=== PATIENT | female | born 1935 | race American Indian/Alaskan Native ===

== ENCOUNTER 2017-11-10 00:12 | Inpatient (IN) | payer OTHER ==
[2017-11-10] MEDS ORDERED: Eptifibatide 20 mg/10mL Inj IV ONE ×2 (00:25→00:42)
--- NOTE | 2017-11-10 00:25 | ED PDOC ---
Arrival/HPI - General Chief Complaint: Chest Pain Time Seen by Provider: 11/10/17 00:19 Historian: Family, EMS EM Caveat: Dementia - Critical Care Critical Care Minutes: 30 minutes - History of Present Illness Narrative History of Present Illness (Text): 11/10/17 00:21 82 year old female, whose past medical history includes hypertension and diabetes, presents to the Emergency department complaining of chest pain that began 30 minutes ago associated with nausea and vomiting. As per EMS, the EKG showed ST elevations in lateral leads and ST depressions in the inferior leads. Patient's son reports that patient had been showing signs of dementia for the past month as well at times having shortness of breath on exertion at home. HPI and ROS limited due to patients symptoms of dementia. Patent's history obtained by family. PMD: Dr. Gibbs Time/Duration: 1/2 hour Symptom Onset: Sudden Symptom Course: Unchanged Activities at Onset: Light Context: Home Past Medical History - Provider Review Nursing Documentation Reviewed: Yes - Cardiac Hx Cardiac Disorders: Yes Hx Hypertension: Yes - Psychiatric Hx Substance Use: No Family/Social History - Physician Review Nursing Documentation Reviewed: Yes Family/Social History: No Known Family HX Smoking Status: Never Smoked Hx Alcohol Use: No Hx Substance Use: No Allergies/Home Meds Allergies/Adverse Reactions: Allergies No Known Allergies Allergy (Verified 11/10/17 00:18) Review of Systems - Physician Review All systems were reviewed & negative as marked: Yes - Review of Systems Systems not reviewed;Unavailable: Dementia Cardiovascular: Chest Pain, BARRIENTOS Gastrointestinal: Nausea, Vomiting Physical Exam Vital Signs Reviewed: Yes Vital Signs Pulse Resp BP Pulse Ox 11/10/17 00:45 60 155/83 H 11/10/17 00:29 68 16 131/68 96 11/10/17 00:23 68 16 141/67 96 Temperature: Afebrile Blood Pressure: Normal Pulse: Regular Appearance: Positive for: Other (Weak and pale. Vomited in ER) Pain Distress: None Mental Status: Positive for: other (Alert and Oriented X 2. History of Dementia ) - Systems Exam Head: Present: Atraumatic, Normocephalic Pupils: Present: PERRL Extroacular Muscles: Present: EOMI Conjunctiva: Present: Normal Mouth: Present: Moist Mucous Membranes Neck: Present: Normal Range of Motion Respiratory/Chest: Present: Clear to Auscultation, Good Air Exchange. No: Respiratory Distress, Accessory Muscle Use Cardiovascular: Present: Regular Rate and Rhythm, Normal S1, S2. No: Murmurs Abdomen: No: Tenderness, Distention, Peritoneal Signs Back: Present: Normal Inspection Upper Extremity: Present: Normal Inspection. No: Cyanosis, Edema Lower Extremity: Present: Normal Inspection. No: Edema Neurological: Present: GCS=15, CN II-XII Intact, Speech Normal Skin: Present: Warm, Dry, Normal Color. No: Rashes Psychiatric: Present: Alert, Oriented x 3, Normal Insight, Normal Concentration Medical Decision Making ED Course and Treatment: 11/10/17 00:15 Impression: 82 year old female presents complaining of chest pain that began 30 minutes ago associated with nausea, vomiting, and dyspnea on exertion at times. Differential Diagnosis included but are not limited to: STEMI Plan: -- Labs -- EKG -- CXR -- Aspirin, Integrilin Bolus, Lopressor, Nitro-Bid 2%, Plavix , Zofran Inj -- Reassess and disposition Progress Notes: EKG shows NSR at [address] elevations, Q waves V1, V2, V3, and V4. ST depressions in leads 2, 3, and AVF. Interpreted by me. 11/10/17 00:23 Case discussed with with Dr. Arteaga who is aware and agrees with the plan. Requests Integrilin bolus and Aspirin. 11/10/17 00:25 Code Heart has been called. Patient will be sent to the Accounting Policy Consultant. Patient was administered, Plavix, Aspirin, 2nd Integrilin Bolus, and Lopressor. 11/10/17 00:[address] Gibbs who is aware and agrees with the plan. Accepts patient into her service. - Lab Interpretations Lab Results: 11/10/17 00:25 11/10/17 00:25 Lab Results 11/10/17 00:25: Sodium 146, Potassium 3.4 L, Chloride 110 H, Carbon Dioxide 24, Anion Gap 17, BUN 18, Creatinine 0.9, Est GFR ( Amer) > 60, Est GFR (Non- Af Amer) 60, Random Glucose 185 H, Calcium 9.4, Total Bilirubin 0.3, AST 29, ALT 27, Alkaline Phosphatase 105, Lactate Dehydrogenase 467, Total Creatine Kinase 112, Troponin I 0.10, Total Protein 7.6, Albumin 4.0, Globulin 3.6, Albumin/Globulin Ratio 1.1 11/10/17 00:25: PT 11.5, INR 1.01, APTT 27.9 11/10/17 00:25: WBC 12.1 H, RBC 3.82, Hgb 10.8 L, Hct 33.3 L, MCV 87.2, MCH 28.3 , MCHC 32.4, RDW 13.3, Plt Count 275, MPV 9.8, Gran % 54.6, Lymph % (Auto) 35.8 H, [place] % (Auto) 6.4 H, Eos % (Auto) 3.0, Baso % (Auto) 0.2, Gran # 6.60 H, Lymph # (Auto) 4.3 H, [place] # (Auto) 0.8 H, Eos # (Auto) 0.4, Baso # (Auto) 0.03 I have reviewed the lab results: Yes - RAD Interpretation Radiology Orders: 11/10/17 00:19 CHEST PORTABLE [RAD] Stat - EKG Interpretation Interpreted by ED Physician: Yes Type: 12 lead EKG - Medication Orders Current Medication Orders: Aspirin (Aspirin Chewable) 81 mg PO DAILY JORDON Clopidogrel Bisulfate (Plavix) 75 mg PO DAILY JORDON Clopidogrel Bisulfate (Plavix) 150 mg PO DAILY JORDON Stop: 11/11/17 10:01 Eptifibatide (Integrilin) 75 mg in 100 mls @ 12.265 mls/hr IV .Q8H10M JORDON; 2 MCG/KG/MIN PRN Reason: Protocol Stop: 11/10/17 13:30 Sodium Chloride (Sodium Chloride 0.9%) 1,000 mls @ 50 mls/hr IV .Q20H JORDON Discontinued Medications Aspirin (Aspirin) 325 mg PO STAT STA Stop: 11/10/17 00:20 Last Admin: 11/10/17 00:26 Dose: 325 mg Clopidogrel Bisulfate (Plavix) 600 mg PO STAT STA Stop: 11/10/17 00:39 Last Admin: 11/10/17 00:40 Dose: 600 mg Eptifibatide (Integrilin Bolus) 13.8 mg 0.18 mg/kg (13.8 mg) IV ONCE ONE Stop: 11/10/17 00:26 Last Admin: 11/10/17 00:29 Dose: 13.8 mg eMAR Start Stop Document 11/10/17 00:29 JOL (Rec: 11/10/17 00:38 [id number] Intravenous Solution Start Date 11/10/17 Start Time 00:29 End Date 11/10/17 End time 00:30 Total Infusion Time 1 Eptifibatide (Integrilin Bolus) 13.8 mg 0.18 mg/kg (13.8 mg) IV ONCE ONE Stop: 11/10/17 00:43 Last Admin: 11/10/17 00:46 Dose: 13.8 mg eMAR Start Stop Document 11/10/17 00:46 JOL (Rec: 11/10/17 00:47 COUNTS [id number] Intravenous Solution Start Date 11/10/17 Start Time 00:45 End Date 11/10/17 End time 00:47 Total Infusion Time 2 Metoprolol Tartrate (Lopressor) 5 mg IVP STAT STA Stop: 11/10/17 00:43 Last Admin: 11/10/17 00:45 Dose: 5 mg IVP Administration Document 11/10/17 00:45 JOL (Rec: 11/10/17 00:46 COUNTS [id number] Charges for Administration # of IVP Administrations 1 MAR Pulse and Blood Pressure Document 11/10/17 00:45 JOL (Rec: 11/10/17 00:46 COUNTS [facility]CLUDE [id number]) Pulse Pulse Rate (60-90) 60 Blood Pressure Blood Pressure (100/60-150/90) 155/83 Nitroglycerin (Nitro-Bid 2% Oint) 1 ea TOP STAT STA Stop: 11/10/17 00:30 Last Admin: 11/10/17 00:31 Dose: 1 ea Ondansetron HCl (Zofran Inj) 4 mg IVP STAT STA Stop: 11/10/17 00:30 Last Admin: 11/10/17 00:24 Dose: 4 mg IVP Administration Document 11/10/17 00:24 JOL (Rec: 11/10/17 00:37 COUNTS [facility]CLUDE [id number]) Charges for Administration # of IVP Administrations 1 - Scribe Statement The provider has reviewed the documentation as recorded by the Chava Whatley Provider Scribe Attestation: All medical record entries made by the Scribe were at my direction and personally dictated by me. I have reviewed the chart and agree that the record accurately reflects my personal performance of the history, physical exam, medical decision making, and the department course for this patient. I have also personally directed, reviewed, and agree with the discharge instructions and disposition. Disposition/Present on Arrival - Present on Arrival Any Indicators Present on Arrival: No History of DVT/PE: No History of Uncontrolled Diabetes: No Urinary Catheter: No History of Decub. Ulcer: No History Surgical Site Infection Following: None - Disposition Have Diagnosis and Disposition been Completed?: Yes Diagnosis: STEMI (ST elevation myocardial infarction) Disposition: HOSPITALIZED Disposition Time: 00:29 Patient Plan: Admission Condition: CRITICAL Referrals: Jennie Gibbs MD [Primary Care Provider] - Follow up with primary Forms: [employer] (Macedonian)
[2017-11-10] MEDS ORDERED: Nitroglycerin 2% Ointment Foilpak UD TOP STA (00:29)
[2017-11-10 00:40] LABS: BASO # 0.03 K/mm3 (0.0-2.0); BASO % 0.2 % (0.0-3.0); EOS # 0.4 (0.0-0.7); GRAN # 6.6 (1.4-6.5); GRAN % 54.6 % (50.0-68.0); HEMOGLOBIN 10.8 g/dL (12.0-16.0); LYMPH # 4.3 (1.2-3.4); LYMPH % 35.8 % (22.0-35.0); MEAN CELL VOLUME 87.2 fl (80.0-105.0); MEAN CORPUSCULAR HEMOGLOBIN 28.3 pg (25.0-35.0); MEAN CORPUSCULAR HGB CONC 32.4 g/dl (31.0-37.0); MEAN PLATELET VOLUME 9.8 fl (7.0-11.0); MONO # 0.8 (0.1-0.6); MONO % 6.4 % (1.0-6.0); RBC 3.82 10^6/uL (3.5-6.1); RED CELL DISTRIBUTION WIDTH 13.3 % (11.5-14.5); WHITE BLOOD COUNT 12.1 10^3/ul (4.5-11.0)
[2017-11-10] MEDS ORDERED: Metoprolol 1 mg/ml Inj IVP STA (00:42)
[2017-11-10] MEDS ORDERED: Metoprolol 1 mg/ml Inj IVP ONE (00:45)
[2017-11-10] MEDS ORDERED: Eptifibatide 20 mg/10mL Inj IVP ONE (00:46)
[2017-11-10 00:49] LABS: ALB/GLOB RATIO 1.1 (1.1-1.8); ALT/SGPT 27 U/L (7-56); AST/SGOT 29 U/L (14-36); BLOOD UREA NITROGEN 18 mg/dL (7-21); CALCIUM 9.4 mg/dL (8.4-10.5); GFR AFRICAN-AMERICAN > 60; GFR NON-AFRICAN AMERICAN 60; INR 1.01 (0.93-1.08); PROTHROMBIN TIME 11.5 SECONDS (9.4-12.5)
[2017-11-10 00:50] LABS: PARTIAL THROMBOPLASTIN TIME 27.9 Seconds (25.1-36.5)
[2017-11-10] MEDS ORDERED: Phenylephrine 10 mg/ml Inj ONE (00:51)
[2017-11-10] MEDS ORDERED: Lidocaine 2% Inj (20ml) ONE (00:51)
[2017-11-10] MEDS ORDERED: Nitroglycerin 50mg in D5W 0 MG/0 ML BOTTLE IV ONE (00:52)
[2017-11-10] MEDS ORDERED: Iohexol 350mgl/ml 50 ML ONE (00:52)
[2017-11-10] MEDS ORDERED: Midazolam 2 MG/2 ML VIAL ONE ×2 (00:52→01:07)
[2017-11-10] MEDS ORDERED: Iodixanol 320 MG/ML 100 ML BOTTLE IV ONE (00:52)
[2017-11-10] MEDS ORDERED: Iodixanol 320 MG/ML 200 ML BOTTLE IV ONE (00:52)
[2017-11-10] MEDS ORDERED: Eptifibatide 0.75 mg/ml 75 MG/100 ML BOTTLE IV ONE (01:22)
[2017-11-10] MEDS ORDERED: Eptifibatide 0.75 mg/ml 75 MG/100 ML BOTTLE IV SCH (01:45)
[2017-11-10] MEDS ORDERED: Sodium Chloride 0.9% 1,000 ML IV SCH (01:45)
[2017-11-10] MEDS ORDERED: Potassium Chloride 20 mEq ER Tab PO STA (02:53)
--- NOTE | 2017-11-10 03:51 | CP.PCM.CON ---
<Luisito Villa - Last Filed: 11/10/17 03:34> History of Present Illness - History of Present Illness History of Present Illness: ICU Consult Note CC: Angina/STEMI/s/p cath with one HEVER HPI: Mrs. Heredia is an 82 year old female with a past medical history significant for dementia, DM2 and HTN who presented with chest pain and reported ST elevations in the field. Patient disoriented to person, place, time and event and uncooperative during HPI and ROS examintion. Patient reportedly told family members that she was having chest pain approximately 30 minutes before arrival with one episode of NBNB vomiting. Patient was reportedly resting at the time the pain started. Patients son also reports that she has had worsening dementia symptoms over the course of the past month, including disorientation to person, place, time and event at various times. He also endorsed that patient has had worsening BARRIENTOS while walking around at home over the course of the past month as well, which is a change in patients baseline as she never used to get short of breath while performing ADL. HPI and ROS limited due to patients dementia and all information obtained by family members. PMH: dementia, DM2 and HTN PSH: Cholecystectomy and bladder prolapse Family History: Unknown to patients son Social History: Denies any tobacco, alcohol or illicit drug abuse Allergies: NKDA Home Medications: List to be brought by family members Review of Systems - Review of Systems Systems not reviewed;Unavailable: Dementia, Uncooperative Past Patient History - Past Social History Smoking Status: Never Smoked - CARDIAC Hx Cardiac Disorders: Yes Hx Hypertension: Yes - PULMONARY Hx Respiratory Disorders: No - HEENT Other/Comment: wears reading glasses - RENAL Other/Comment: prolapsed bladder -appt. with Dr Ricks every 3 months - ENDOCRINE/METABOLIC Hx Diabetes Mellitus Type 2: Yes - PSYCHIATRIC Hx Substance Use: No - SURGICAL HISTORY Hx Cholecystectomy: Yes Meds Allergies/Adverse Reactions: Allergies Allergy/AdvReac Type Severity Reaction Status Date / Time No Known Allergies Allergy Verified 11/10/17 00:18 - Medications Medications: Current Medications Aspirin (Aspirin Chewable) 81 mg PO DAILY JORDON Clopidogrel Bisulfate (Plavix) 75 mg PO DAILY JORDON Clopidogrel Bisulfate (Plavix) 150 mg PO DAILY JORDON Stop: 11/11/17 10:01 Eptifibatide (Integrilin) 75 mg in 100 mls @ 6.133 mls/hr IV .[id number] JORDON; 1 MCG/KG/MIN PRN Reason: Protocol Stop: 11/10/17 13:30 Last Admin: 11/10/17 01:45 Dose: 6.133 mls/hr Sodium Chloride (Sodium Chloride 0.9%) 1,000 mls @ 50 mls/hr IV .Q20H JORDON Last Admin: 11/10/17 02:00 Dose: 50 mls/hr Physical Exam - Constitutional Appears: Confused - Head Exam Head Exam: ATRAUMATIC, NORMOCEPHALIC - Eye Exam Eye Exam: EOMI, Normal appearance, PERRL - ENT Exam ENT Exam: Mucous Membranes Moist - Neck Exam Neck exam: Positive for: Full Rom, Normal Inspection. Negative for: Lymphadenopathy, Meningismus, Tenderness, Thyromegaly - Respiratory Exam Respiratory Exam: Clear to Auscultation Bilateral, NORMAL BREATHING PATTERN. absent: Accessory Muscle Use, Chest Wall Tenderness, Decreased Breath Sounds, Prolonged Expiratory Phase, Rales, Rhonchi, Wheezes, Respiratory Distress, Stridor - Cardiovascular Exam Cardiovascular Exam: REGULAR RHYTHM, RRR, +S1, +S2. absent: Bradycardia, Tachycardia, Clicks, Diastolic murmur, Gallop, Irregular Rhythm, JVD, Rubs, +S4 , Systolic Murmur - GI/Abdominal Exam GI & Abdominal Exam: Normal Bowel Sounds, Soft. absent: Tenderness - Extremities Exam Extremities exam: Positive for: full ROM, normal capillary refill, normal inspection, pedal pulses present. Negative for: calf tenderness, joint swelling , pedal edema, tenderness - Skin Skin Exam: Dry, Intact, Warm Results - Vital Signs Recent Vital Signs: Last Vital Signs Temp 98.0 F 11/10/17 00:41 Pulse 60 11/10/17 00:48 Resp 17 11/10/17 00:48 BP 155/87 H 11/10/17 00:48 Pulse Ox 97 11/10/17 00:48 - Labs Result Diagrams: 11/10/17 00:25 11/10/17 00:25 Labs: Laboratory Results - last 24 hr 11/10/17 11/10/17 11/10/17 00:25 00:25 00:25 WBC 12.1 H RBC 3.82 Hgb 10.8 L Hct 33.3 L MCV 87.2 MCH 28.3 MCHC 32.4 RDW 13.3 Plt Count 275 MPV 9.8 Gran % 54.6 Lymph % (Auto) 35.8 H [place] % (Auto) 6.4 H Eos % (Auto) 3.0 Baso % (Auto) 0.2 Gran # 6.60 H Lymph # (Auto) 4.3 H [place] # (Auto) 0.8 H Eos # (Auto) 0.4 Baso # (Auto) 0.03 PT 11.5 INR 1.01 APTT 27.9 Sodium 146 Potassium 3.4 L Chloride 110 H Carbon Dioxide 24 Anion Gap 17 BUN 18 Creatinine 0.9 Est GFR ( Amer) > 60 Est GFR (Non-Af Amer) 60 Random Glucose 185 H Calcium 9.4 Total Bilirubin 0.3 AST 29 ALT 27 Alkaline Phosphatase 105 Lactate Dehydrogenase 467 Total Creatine Kinase 112 Troponin I 0.10 Total Protein 7.6 Albumin 4.0 Globulin 3.6 Albumin/Globulin Ratio 1.1 Assessment & Plan - Assessment and Plan (Free Text) Assessment: 82 year old female with a past medical history significant for dementia, DM2 and HTN who presented with chest pain and reported ST elevations in the field. Patient disoriented to person, place, time and event and uncooperative during HPI and ROS examintion. Plan: 1. STEMI s/p Cath -EKG on admission showed NSR at [address] elevations and Q waves in V1, V2 , V3, and V4 and ST depressions in leads 2, 3, and AVF. -Chest X-Ray pending official radiologist interpretation -HEVER placed in LAD -Integrilin drip at 1mcg/kg/min (renally adjusted dose) for 12 hours -150mg Plavix in AM and then 75mg daily afterwards -ASA 81mg PO daily -Normal Saline at 50mls/hr -Supplemental Oxygen via NC at 2 liters/min to maintain oxygen saturation above 92% -Heart Healthy Diet -Lipid panel, TSH and Hemoglobin A1c pending -Cardiology consulted, all recommendations appreciated 2. History of DM2 -SSI-Low and Accuchecks ACHS -A1c pending GI Prophylaxis: Carafate DVT Prophylaxis: Integrilin gtt and SCD Patient seen and case discussed with attending, Dr. Hutchinson. Greyson PGY1 - Date & Time Date: 11/10/17 Time: 03:34 <Sreekanth Hutchinson - Last Filed: 11/10/17 04:45> Meds - Medications Medications: Current Medications Aspirin (Aspirin Chewable) 81 mg PO DAILY [facility] Clopidogrel Bisulfate (Plavix) 75 mg PO DAILY [facility] Clopidogrel Bisulfate (Plavix) 150 mg PO DAILY [facility] Stop: 11/11/17 10:01 Eptifibatide (Integrilin) 75 mg in 100 mls @ 6.133 mls/hr IV .[id number] JORDON; 1 MCG/KG/MIN PRN Reason: Protocol Stop: 11/10/17 13:30 Last Admin: 11/10/17 01:45 Dose: 6.133 mls/hr Sodium Chloride (Sodium Chloride 0.9%) 1,000 mls @ 50 mls/hr IV .Q20H JORDON Last Admin: 11/10/17 02:00 Dose: 50 mls/hr Insulin Human Regular (Humulin R Low) 0 units SC ACHS JORDON PRN Reason: Protocol Sucralfate (Carafate Tab) 1 gm PO 0600,1600 [facility] Results - Vital Signs Recent Vital Signs: Last Vital Signs Temp 97.6 F 11/10/17 02:37 Pulse 60 11/10/17 02:37 Resp 20 11/10/17 02:37 BP 123/79 11/10/17 02:37 Pulse Ox 97 11/10/17 00:48 - Labs Result Diagrams: 11/10/17 00:25 11/10/17 00:25 Labs: Laboratory Results - last 24 hr 11/10/17 11/10/17 11/10/17 00:25 00:25 00:25 WBC 12.1 H RBC 3.82 Hgb 10.8 L Hct 33.3 L MCV 87.2 MCH 28.3 MCHC 32.4 RDW 13.3 Plt Count 275 MPV 9.8 Gran % 54.6 Lymph % (Auto) 35.8 H [place] % (Auto) 6.4 H Eos % (Auto) 3.0 Baso % (Auto) 0.2 Gran # 6.60 H Lymph # (Auto) 4.3 H [place] # (Auto) 0.8 H Eos # (Auto) 0.4 Baso # (Auto) 0.03 PT 11.5 INR 1.01 APTT 27.9 Sodium 146 Potassium 3.4 L Chloride 110 H Carbon Dioxide 24 Anion Gap 17 BUN 18 Creatinine 0.9 Est GFR ( Amer) > 60 Est GFR (Non-Af Amer) 60 Random Glucose 185 H Calcium 9.4 Total Bilirubin 0.3 AST 29 ALT 27 Alkaline Phosphatase 105 Lactate Dehydrogenase 467 Total Creatine Kinase 112 Troponin I 0.10 Total Protein 7.6 Albumin 4.0 Globulin 3.6 Albumin/Globulin Ratio 1.1 Attending/Attestation - Attestation I have personally seen and examined this patient.: Yes I have fully participated in the care of the patient.: Yes I have reviewed all pertinent clinical information: Yes Notes (Text): 11/10/17 04:43 Patient was seen in the ER than was transferred to canvas shop laborer. I stayed with patient until procedure was completed. A consent was obtained from son after explaining in detail about the procedure and complications. Agree with consultation note. CCT spent 30 minutes.
[2017-11-10 03:59] VITALS: BMI 30.2
--- NOTE | 2017-11-10 04:10 | CARDCATH ---
PROCEDURE DATE: 11/10/2017 EMERGENCY CARDIAC CATH AND PTCA HISTORY: The patient is a 82-year-old woman who developed sudden onset of substernal chest pain associated with nausea. EKG in the emergency room was consistent with an anterior wall NV. The patient was transferred to the starch factory laborer emergently for emergency PTCA. The patient suffers from diabetes mellitus and hypertension. PROCEDURE: Emergency cardiac catheterization with left heart catheterization with coronary arteriography, left ventriculogram as well as emergency PTCA and stent of an LAD. The right femoral artery was cannulated with a 6-Vietnamese sheath. There were no complications. I performed moderate sedation, which included the presence of an independent trained observer that assisted in monitoring the patient's level of consciousness and physiologic status. After administration of Versed and fentanyl, my intra service time was 30 minutes. The patient was given two boluses of Integrilin as well as IV Integrilin drip, 4000 units of heparin was given. The findings on catheterization revealed the patient had a right dominant circulation. The RCA revealed diffuse atherosclerosis throughout its coronary tree with a 60% stenoses in the ostium of the PDA. The left main artery was free of significant disease. The LAD was diffusely diseased with a long critical lesion in the proximal extending into the midportion of the LAD. At its most severe, the LAD was 99% stenosed in its proximal portion. There was a moderate-sized diagonal vessel that came off the lesion, which revealed diffuse disease including a long 80-90% stenoses in its proximal portion. The circumflex artery and obtuse marginal branches revealed diffuse atherosclerosis with multiple 50% lesions throughout its course. The left ventricle revealed anterior wall akinesis. Estimated ejection fraction is 40%. LVEDP was 20. The guiding catheter was placed in the ostium of the left main artery. An 0.014 ATW wire was used to cross the critical lesion. A 2 balloon was utilized to predilate the disease segment of the LAD. A 2.25 x 22 mm drug-eluting stent was placed and deployed at 12 atmospheres of pressure. Postdilatation was performed with a 2.5 x 20 mm noncompliant balloon up to 16 atmospheres of pressure. Repeat coronary arteriography revealed an excellent result with no residual stenosis and EMERALD III flow. Angio-Seal was used to close the femoral artery site. There was preservation of flow into the diagonal vessel. In summary, the procedure was successful for an emergency PTCA and stent of a 99% long critical lesion in the LAD. Cardiac catheterization reveals multivessel CAD. LV function with an EF of 40% with an anteroapical akinetic region. Given these findings, the patient will remain on Integrilin for the next 18 hours. She will go to the ICU for continued care and observation. Gregory Arteaga MD
[2017-11-10 07:07] LABS: BASO # 0.01 K/mm3 (0.0-2.0); BASO % 0.1 % (0.0-3.0); EOS % 0.2 % (1.5-5.0); GRAN # 12.12 (1.4-6.5); GRAN % 84.7 % (50.0-68.0); HEMOGLOBIN 11.3 g/dL (12.0-16.0); LYMPH # 1.4 (1.2-3.4); LYMPH % 10.1 % (22.0-35.0); MEAN CELL VOLUME 87.6 fl (80.0-105.0); MEAN CORPUSCULAR HEMOGLOBIN 28.1 pg (25.0-35.0); MEAN CORPUSCULAR HGB CONC 32.1 g/dl (31.0-37.0); MEAN PLATELET VOLUME 10.3 fl (7.0-11.0); MONO # 0.7 (0.1-0.6); MONO % 4.9 % (1.0-6.0); RBC 4.02 10^6/uL (3.5-6.1); RED CELL DISTRIBUTION WIDTH 13.4 % (11.5-14.5); WHITE BLOOD COUNT 14.3 10^3/ul (4.5-11.0)
[2017-11-10 07:20] LABS: ALB/GLOB RATIO 1.1 (1.1-1.8); ALBUMIN 4.1 g/dL (3.0-4.8); ALT/SGPT 55 U/L (7-56); AST/SGOT 553 U/L (14-36); BLOOD UREA NITROGEN 16 mg/dL (7-21); CALCIUM 9.5 mg/dL (8.4-10.5); GFR AFRICAN-AMERICAN > 60; GFR NON-AFRICAN AMERICAN 60; HDL CHOLESTEROL 43 mg/dL (29-60)
[2017-11-10 07:29] LABS: INR 1.05 (0.93-1.08); LDL CHOLESTEROL 103 mg/dL (0-129); PARTIAL THROMBOPLASTIN TIME 28.5 Seconds (25.1-36.5); PROTHROMBIN TIME 12.1 SECONDS (9.4-12.5)
[2017-11-10] MEDS: Insulin Reg-LOW-Coverage SC SCH ×4 (09:08→22:00)
--- NOTE | 2017-11-10 10:29 | RAD ---
HISTORY: chest pain COMPARISON: No prior. FINDINGS: LUNGS: Pulmonary venous congestion suggested. Concomitant bilateral infrahilar peribronchial thickening possible -can be seen with peribronchial inflammatory changes/bronchitis. No dense consolidation seen. PLEURA: Left costophrenic angle partially obliterated -small left pleural effusion possible. Not excluded. No pneumothorax. CARDIOVASCULAR: Cardiomegaly and mild pulmonary venous congestion suggested. OSSEOUS STRUCTURES: Bilateral shoulder arthrosis VISUALIZED UPPER ABDOMEN: Normal. OTHER FINDINGS: None. IMPRESSION: Cardiomegaly an mild pulmonary venous congestion. Bibasilar infrahilar peribronchial thickening also proceed- the bronchitic process of unknown chronicity possible. Small left pleural effusion and/or left inferolateral pleural parenchymal thickening reaction possible as well
--- NOTE | 2017-11-10 10:42 | CP.CCUPN ---
<Dawit Pierre - Last Filed: 11/10/17 10:35> CCU Subjective - Physician Review Subjective (Free Text): 11/10/17 10:36 Patient seen and examined at bedside in ICU. ROS limited due to dementia, but patient denies acute pain or shortness of breath at time of exam. Reports lack of appetite, but was able to drink her juice without issue. Complains of poor sleep. Remains on Integrillin drip, to be competed at 1330. CCU Objective - Vital Signs / Intake & Output Vital Signs (Last 4 hours): Vital Signs Temp Pulse Resp BP 11/10/17 08:26 78 39 H 11/10/17 07:56 78 39 H 11/10/17 07:40 78 39 H 11/10/17 07:30 68 27 H 11/10/17 07:26 97.8 F 78 39 H 150/69 11/10/17 07:20 67 32 H 11/10/17 07:10 74 25 H 11/10/17 07:03 70 20 150/69 11/10/17 07:00 73 23 67/50 L 11/10/17 06:50 71 16 11/10/17 06:45 71 28 H 98/51 L 11/10/17 06:40 74 13 Intake and Output (Last 8hrs): Intake & Output 11/09/17 11/10/17 11/10/17 22:59 06:59 14:59 Intake Total 475 Output Total 100 Balance 375 Weight 77.281 kg Intake: IV 475 Right Hand 25 Right Wrist 450 Output: Urine 100 Urine, Voided 100 Other: Voiding Method Bedpan - Physical Exam Head: Positive for: Atraumatic, Normocephalic Pupils: Positive for: PERRL. Negative for: Non-Reactive, Pinpoint Extroacular Muscles: Positive for: EOMI. Negative for: Gaze Palsy, Entrapment Conjunctiva: Positive for: Normal. Negative for: Injected, Icteric Mouth: Positive for: Moist Mucous Membranes, Normal Lips, Normal Tounge Nose (External): Positive for: Atraumatic. Negative for: Abrasion, Laceration Nose (Internal): Positive for: Normal Inspection, No Active Bleeding. Negative for: Epistaxis Neck: Positive for: Normal Range of Motion. Negative for: JVD Respiratory/Chest: Positive for: Clear to Auscultation, Good Air Exchange. Negative for: Respiratory Distress, Accessory Muscle Use, Wheezes, Decreased Breath Sounds, Rales Cardiovascular: Positive for: Regular Rate and Rhythm, Normal S1, S2. Negative for: Murmurs, Irregular Rhythm, Tachycardic, Bradycardic Abdomen: Positive for: Normal Bowel Sounds. Negative for: Tenderness, Distention, Peritoneal Signs, Feeding Tubes Upper Extremity: Positive for: Normal Inspection, Normal ROM. Negative for: Cyanosis, Edema, Tenderness, Swelling, Erythema, Deformity Lower Extremity: Positive for: Normal Inspection, Normal ROM. Negative for: Edema, CALF TENDERNESS, Cyanosis, Tenderness, Swelling, Erythema, Deformity Neurological: Positive for: Other (awake and alert, moving all extremities spontaneously, following some commands but reports some weakness with movements) Skin: Positive for: Warm, Dry, Normal Color. Negative for: Rashes Psychiatric: Positive for: Alert, Normal Insight, Normal Concentration. Negative for: Oriented x 3 (oriented to self and partially to location (knows in a hospital, not which one)) - Medications Active Medications: Active Medications Generic Name Dose Route Start Last Admin Trade Name Freq PRN Reason Stop Dose Admin Aspirin 81 mg 11/10/17 10:00 11/10/17 09:17 Aspirin Chewable PO 81 mg DAILY JORDON Administration Clopidogrel Bisulfate 75 mg 11/11/17 10:00 Plavix PO DAILY JORDON Clopidogrel Bisulfate 150 mg 11/10/17 10:00 11/10/17 09:16 Plavix PO 11/11/17 10:01 150 mg DAILY JORDON Administration Eptifibatide 75 mg in 100 mls @ 6.133 mls/hr 11/10/17 01:45 11/10/17 01:45 Integrilin IV 11/10/17 13:30 6.133 mls/hr .[id number] JORDON Administration Protocol 1 MCG/KG/MIN Sodium Chloride 1,000 mls @ 50 mls/hr 11/10/17 01:45 11/10/17 02:00 Sodium Chloride 0.9% IV 50 mls/hr .Q20H JORDON Administration Insulin Human Regular 0 units 11/10/17 07:30 11/10/17 09:08 Humulin R Low SC Not Given ACHS JORDON Protocol Ondansetron HCl 4 mg 11/10/17 09:36 Zofran Inj IVP Q6H PRN Nausea/Vomiting Sucralfate 1 gm 11/10/17 06:00 11/10/17 07:00 Carafate Tab PO 1 gm 0600,1600 JORDON Administration - Patient Studies Lab Studies: Lab Studies 11/10/17 11/10/17 11/10/17 Range/Units 09:11 06:00 06:00 WBC (4.5-11.0) 10^3/ul RBC (3.5-6.1) 10^6/uL Hgb (12.0-16.0) g/dL Hct (36.0-48.0) % MCV (80.0-105.0) fl MCH (25.0-35.0) pg MCHC (31.0-37.0) g/dl RDW (11.5-14.5) % Plt Count (120.0-450.0) 10^3/uL MPV (7.0-11.0) fl Gran % (50.0-68.0) % Lymph % (Auto) (22.0-35.0) % [place] % (Auto) (1.0-6.0) % Eos % (Auto) (1.5-5.0) % Baso % (Auto) (0.0-3.0) % Gran # (1.4-6.5) Lymph # (Auto) (1.2-3.4) [place] # (Auto) (0.1-0.6) Eos # (Auto) (0.0-0.7) Baso # (Auto) (0.0-2.0) K/mm3 PT (9.4-12.5) SECONDS INR (0.93-1.08) APTT (25.1-36.5) Seconds Sodium (132-148) mmol/L Potassium (3.6-5.0) mmol/L Chloride (98-107) mmol/L Carbon Dioxide (21-33) mmol/L Anion Gap (10-20) BUN (7-21) mg/dL Creatinine (0.7-1.2) mg/dl Est GFR ( Amer) Est GFR (Non-Af Amer) POC Glucose (mg/dL) 185 H (65-110) mg/dL Random Glucose (70-110) mg/dL Calcium (8.4-10.5) mg/dL Total Bilirubin (0.2-1.3) mg/dL AST (14-36) U/L ALT (7-56) U/L Alkaline Phosphatase (38-126) U/L Lactate Dehydrogenase (333-699) U/L Total Creatine Kinase (35-230) U/L Troponin I ng/mL Total Protein (5.8-8.3) g/dL Albumin (3.0-4.8) g/dL Globulin gm/dL Albumin/Globulin Ratio (1.1-1.8) Triglycerides (35-160) mg/dL Cholesterol (130-200) mg/dL LDL Cholesterol Direct (0-129) mg/dL HDL Cholesterol (29-60) mg/dL TSH 3rd Generation 1.41 (0.46-4.68) mIU/mL Blood Type Blood Type Confirm O POSITIVE Antibody Screen BBK History Checked 11/10/17 11/10/17 11/10/17 Range/Units 06:00 06:00 06:00 WBC 14.3 H (4.5-11.0) 10^3/ul RBC 4.02 (3.5-6.1) 10^6/uL Hgb 11.3 L (12.0-16.0) g/dL Hct 35.2 L (36.0-48.0) % MCV 87.6 (80.0-105.0) fl MCH 28.1 (25.0-35.0) pg MCHC 32.1 (31.0-37.0) g/dl RDW 13.4 (11.5-14.5) % Plt Count 292 (120.0-450.0) 10^3/uL MPV 10.3 (7.0-11.0) fl Gran % 84.7 H (50.0-68.0) % Lymph % (Auto) 10.1 L (22.0-35.0) % [place] % (Auto) 4.9 (1.0-6.0) % Eos % (Auto) 0.2 L (1.5-5.0) % Baso % (Auto) 0.1 (0.0-3.0) % Gran # 12.12 H (1.4-6.5) Lymph # (Auto) 1.4 (1.2-3.4) [place] # (Auto) 0.7 H (0.1-0.6) Eos # (Auto) 0.0 (0.0-0.7) Baso # (Auto) 0.01 (0.0-2.0) K/mm3 PT 12.1 (9.4-12.5) SECONDS INR 1.05 (0.93-1.08) APTT 28.5 (25.1-36.5) Seconds Sodium 147 (132-148) mmol/L Potassium 4.0 (3.6-5.0) mmol/L Chloride 107 (98-107) mmol/L Carbon Dioxide 26 (21-33) mmol/L Anion Gap 18 (10-20) BUN 16 (7-21) mg/dL Creatinine 0.9 (0.7-1.2) mg/dl Est GFR ( Amer) > 60 Est GFR (Non-Af Amer) 60 POC Glucose (mg/dL) (65-110) mg/dL Random Glucose 174 H (70-110) mg/dL Calcium 9.5 (8.4-10.5) mg/dL Total Bilirubin 0.4 (0.2-1.3) mg/dL AST 553 H D (14-36) U/L ALT 55 (7-56) U/L Alkaline Phosphatase 118 (38-126) U/L Lactate Dehydrogenase (333-699) U/L Total Creatine Kinase (35-230) U/L Troponin I ng/mL Total Protein 7.8 (5.8-8.3) g/dL Albumin 4.1 (3.0-4.8) g/dL Globulin 3.7 gm/dL Albumin/Globulin Ratio 1.1 (1.1-1.8) Triglycerides 87 (35-160) mg/dL Cholesterol 169 (130-200) mg/dL LDL Cholesterol Direct 103 (0-129) mg/dL HDL Cholesterol 43 (29-60) mg/dL TSH 3rd Generation (0.46-4.68) mIU/mL Blood Type Blood Type Confirm Antibody Screen BBK History Checked 11/10/17 11/10/17 11/10/17 Range/Units 06:00 00:25 00:25 WBC (4.5-11.0) 10^3/ul RBC (3.5-6.1) 10^6/uL Hgb (12.0-16.0) g/dL Hct (36.0-48.0) % MCV (80.0-105.0) fl MCH (25.0-35.0) pg MCHC (31.0-37.0) g/dl RDW (11.5-14.5) % Plt Count (120.0-450.0) 10^3/uL MPV (7.0-11.0) fl Gran % (50.0-68.0) % Lymph % (Auto) (22.0-35.0) % [place] % (Auto) (1.0-6.0) % Eos % (Auto) (1.5-5.0) % Baso % (Auto) (0.0-3.0) % Gran # (1.4-6.5) Lymph # (Auto) (1.2-3.4) [place] # (Auto) (0.1-0.6) Eos # (Auto) (0.0-0.7) Baso # (Auto) (0.0-2.0) K/mm3 PT 11.5 (9.4-12.5) SECONDS INR 1.01 (0.93-1.08) APTT 27.9 (25.1-36.5) Seconds Sodium 146 (132-148) mmol/L Potassium 3.4 L (3.6-5.0) mmol/L Chloride 110 H (98-107) mmol/L Carbon Dioxide 24 (21-33) mmol/L Anion Gap 17 (10-20) BUN 18 (7-21) mg/dL Creatinine 0.9 (0.7-1.2) mg/dl Est GFR ( Amer) > 60 Est GFR (Non-Af Amer) 60 POC Glucose (mg/dL) (65-110) mg/dL Random Glucose 185 H (70-110) mg/dL Calcium 9.4 (8.4-10.5) mg/dL Total Bilirubin 0.3 (0.2-1.3) mg/dL AST 29 (14-36) U/L ALT 27 (7-56) U/L Alkaline Phosphatase 105 (38-126) U/L Lactate Dehydrogenase 467 (333-699) U/L Total Creatine Kinase 112 (35-230) U/L Troponin I 0.10 ng/mL Total Protein 7.6 (5.8-8.3) g/dL Albumin 4.0 (3.0-4.8) g/dL Globulin 3.6 gm/dL Albumin/Globulin Ratio 1.1 (1.1-1.8) Triglycerides (35-160) mg/dL Cholesterol (130-200) mg/dL LDL Cholesterol Direct (0-129) mg/dL HDL Cholesterol (29-60) mg/dL TSH 3rd Generation (0.46-4.68) mIU/mL Blood Type O POSITIVE Blood Type Confirm Antibody Screen Negative BBK History Checked No verified bt 11/10/17 Range/Units 00:25 WBC 12.1 H (4.5-11.0) 10^3/ul RBC 3.82 (3.5-6.1) 10^6/uL Hgb 10.8 L (12.0-16.0) g/dL Hct 33.3 L (36.0-48.0) % MCV 87.2 (80.0-105.0) fl MCH 28.3 (25.0-35.0) pg MCHC 32.4 (31.0-37.0) g/dl RDW 13.3 (11.5-14.5) % Plt Count 275 (120.0-450.0) 10^3/uL MPV 9.8 (7.0-11.0) fl Gran % 54.6 (50.0-68.0) % Lymph % (Auto) 35.8 H (22.0-35.0) % [place] % (Auto) 6.4 H (1.0-6.0) % Eos % (Auto) 3.0 (1.5-5.0) % Baso % (Auto) 0.2 (0.0-3.0) % Gran # 6.60 H (1.4-6.5) Lymph # (Auto) 4.3 H (1.2-3.4) [place] # (Auto) 0.8 H (0.1-0.6) Eos # (Auto) 0.4 (0.0-0.7) Baso # (Auto) 0.03 (0.0-2.0) K/mm3 PT (9.4-12.5) SECONDS INR (0.93-1.08) APTT (25.1-36.5) Seconds Sodium (132-148) mmol/L Potassium (3.6-5.0) mmol/L Chloride (98-107) mmol/L Carbon Dioxide (21-33) mmol/L Anion Gap (10-20) BUN (7-21) mg/dL Creatinine (0.7-1.2) mg/dl Est GFR ( Amer) Est GFR (Non-Af Amer) POC Glucose (mg/dL) (65-110) mg/dL Random Glucose (70-110) mg/dL Calcium (8.4-10.5) mg/dL Total Bilirubin (0.2-1.3) mg/dL AST (14-36) U/L ALT (7-56) U/L Alkaline Phosphatase (38-126) U/L Lactate Dehydrogenase (333-699) U/L Total Creatine Kinase (35-230) U/L Troponin I ng/mL Total Protein (5.8-8.3) g/dL Albumin (3.0-4.8) g/dL Globulin gm/dL Albumin/Globulin Ratio (1.1-1.8) Triglycerides (35-160) mg/dL Cholesterol (130-200) mg/dL LDL Cholesterol Direct (0-129) mg/dL HDL Cholesterol (29-60) mg/dL TSH 3rd Generation (0.46-4.68) mIU/mL Blood Type Blood Type Confirm Antibody Screen BBK History Checked Laboratory Results - last 24 hr 11/10/17 11/10/17 11/10/17 00:25 00:25 00:25 WBC 12.1 H RBC 3.82 Hgb 10.8 L Hct 33.3 L MCV 87.2 MCH 28.3 MCHC 32.4 RDW 13.3 Plt Count 275 MPV 9.8 Gran % 54.6 Lymph % (Auto) 35.8 H [place] % (Auto) 6.4 H Eos % (Auto) 3.0 Baso % (Auto) 0.2 Gran # 6.60 H Lymph # (Auto) 4.3 H [place] # (Auto) 0.8 H Eos # (Auto) 0.4 Baso # (Auto) 0.03 PT 11.5 INR 1.01 APTT 27.9 Sodium 146 Potassium 3.4 L Chloride 110 H Carbon Dioxide 24 Anion Gap 17 BUN 18 Creatinine 0.9 Est GFR ( Amer) > 60 Est GFR (Non-Af Amer) 60 POC Glucose (mg/dL) Random Glucose 185 H Calcium 9.4 Total Bilirubin 0.3 AST 29 ALT 27 Alkaline Phosphatase 105 Lactate Dehydrogenase 467 Total Creatine Kinase 112 Troponin I 0.10 Total Protein 7.6 Albumin 4.0 Globulin 3.6 Albumin/Globulin Ratio 1.1 Triglycerides Cholesterol LDL Cholesterol Direct HDL Cholesterol TSH 3rd Generation Blood Type Blood Type Confirm Antibody Screen BBK History Checked 11/10/17 11/10/17 11/10/17 06:00 06:00 06:00 WBC 14.3 H RBC 4.02 Hgb 11.3 L Hct 35.2 L MCV 87.6 MCH 28.1 MCHC 32.1 RDW 13.4 Plt Count 292 MPV 10.3 Gran % 84.7 H Lymph % (Auto) 10.1 L [place] % (Auto) 4.9 Eos % (Auto) 0.2 L Baso % (Auto) 0.1 Gran # 12.12 H Lymph # (Auto) 1.4 [place] # (Auto) 0.7 H Eos # (Auto) 0.0 Baso # (Auto) 0.01 PT INR APTT Sodium 147 Potassium 4.0 Chloride 107 Carbon Dioxide 26 Anion Gap 18 BUN 16 Creatinine 0.9 Est GFR ( Amer) > 60 Est GFR (Non-Af Amer) 60 POC Glucose (mg/dL) Random Glucose 174 H Calcium 9.5 Total Bilirubin 0.4 AST 553 H D ALT 55 Alkaline Phosphatase 118 Lactate Dehydrogenase Total Creatine Kinase Troponin I Total Protein 7.8 Albumin 4.1 Globulin 3.7 Albumin/Globulin Ratio 1.1 Triglycerides 87 Cholesterol 169 LDL Cholesterol Direct 103 HDL Cholesterol 43 TSH 3rd Generation Blood Type O POSITIVE Blood Type Confirm Antibody Screen Negative BBK History Checked No verified bt 11/10/17 11/10/17 11/10/17 06:00 06:00 06:00 WBC RBC Hgb Hct MCV MCH MCHC RDW Plt Count MPV Gran % Lymph % (Auto) [place] % (Auto) Eos % (Auto) Baso % (Auto) Gran # Lymph # (Auto) [place] # (Auto) Eos # (Auto) Baso # (Auto) PT 12.1 INR 1.05 APTT 28.5 Sodium Potassium Chloride Carbon Dioxide Anion Gap BUN Creatinine Est GFR ( Amer) Est GFR (Non-Af Amer) POC Glucose (mg/dL) Random Glucose Calcium Total Bilirubin AST ALT Alkaline Phosphatase Lactate Dehydrogenase Total Creatine Kinase Troponin I Total Protein Albumin Globulin Albumin/Globulin Ratio Triglycerides Cholesterol LDL Cholesterol Direct HDL Cholesterol TSH 3rd Generation 1.41 Blood Type Blood Type Confirm O POSITIVE Antibody Screen BBK History Checked 11/10/17 09:11 WBC RBC Hgb Hct MCV MCH MCHC RDW Plt Count MPV Gran % Lymph % (Auto) [place] % (Auto) Eos % (Auto) Baso % (Auto) Gran # Lymph # (Auto) [place] # (Auto) Eos # (Auto) Baso # (Auto) PT INR APTT Sodium Potassium Chloride Carbon Dioxide Anion Gap BUN Creatinine Est GFR ( Amer) Est GFR (Non-Af Amer) POC Glucose (mg/dL) 185 H Random Glucose Calcium Total Bilirubin AST ALT Alkaline Phosphatase Lactate Dehydrogenase Total Creatine Kinase Troponin I Total Protein Albumin Globulin Albumin/Globulin Ratio Triglycerides Cholesterol LDL Cholesterol Direct HDL Cholesterol TSH 3rd Generation Blood Type Blood Type Confirm Antibody Screen BBK History Checked EKG/Cardiology Studies: Cardiology / EKG Studies 11/10/17 00:19 ELECTROCARDIOGRAM Stat Comment: Reason For Exam: chest pain Review of Systems - Review of Systems Systems not reviewed;Unavailable: Dementia Critical Care Progress Note - Nutrition Nutrition: Nutrition Category Date Time Status Heart Healthy Diet [DIET] Diets 11/10/17 Breakfast Active Assessment/Plan - Assessment and Plan (Free Text) Assessment: This is an 82 yo AA F with PMH of HTN, DM2, and dementia who presented for chest pain and was reported to have ST-elevations on EKG in field. She was found to have ST elevations consistent with an DC, and is now s/p cardiac cath with 1x HEVER placement in the LAD. Plan: Neuro: -awake and alert, only partially oriented (self and partial location) but likely 2/2 longstanding dementia -maintain normothermia -High fall risk, maintain aspiration precautions Cardio: -s/p STEMI, EKG on admit notable for ST elevations + q waves in V1-4, and ST depressions in II, III, and aVF, trop 0.10 -s/p cardiac cath, 1x HEVER in LAD, now on integrillin drip as per cardio (to stop at 1330 today) -continue dual anti-platelets (ASA and plavix), pending beta-jairo and ACEi as per Cardio -Cardio following, appreciate all recs -Lipid panel and TSH wnl, pending A1c -pending echo -Cardio following, appreciate all recs Pulm: -satting well on 4L NC, consistently >= 93% -supplemental O2 as needed -CXR on admit reviewed, notable for cardiomegaly + mild pulm venous congestion, small left pleural effusion vs inferolateral pleural parenchymal thickening GI: -Heart-healthy diet -emesis post-AM meal, Zofran Stat and PRN IV q6 ordered -continue carafate -no GI ppx s/p cardiac cath as per Cardio -isolated AST elevation likely 2/2 STEMI, repeat LFT profile ordered f/u Renal: making good urine, replete electrolytes as needed, Cr stable post-cath at 0.9 Heme: Hgb stable at 11.3, SCDs for DVT ppx, no indication for transfusion at this time ID: afebrile, leukocytosis likely reactive to stress/procedure, continue to monitor, no abx indicated at this time Dispo: ICU s/p cardiac cath, remains on Integrillin drip, to remain in ICU today for obs as per Cardio, pending Echo FEN: HHD Access: Peripheral IVs Consults: Cardio Ppx: no GI ppx s/p cath, SCDs for DVT Patient seen, reviewed, and examined with attending, Dr. Brumfield <Colin Brumfield - Last Filed: 11/10/17 12:14> CCU Objective - Vital Signs / Intake & Output Vital Signs (Last 4 hours): Vital Signs Pulse Resp 11/10/17 10:56 78 39 H 11/10/17 09:56 78 39 H 11/10/17 08:56 78 39 H 11/10/17 08:26 78 39 H Intake and Output (Last 8hrs): Intake & Output 11/09/17 11/10/17 11/10/17 22:59 06:59 14:59 Intake Total 475 Output Total 100 Balance 375 Weight 170 lb 6 oz Intake: IV 475 Right Hand 25 Right Wrist 450 Output: Urine 100 Urine, Voided 100 Other: Voiding Method Bedpan - Medications Active Medications: Active Medications Generic Name Dose Route Start Last Admin Trade Name Freq PRN Reason Stop Dose Admin Aspirin 81 mg 11/10/17 10:00 11/10/17 09:17 Aspirin Chewable PO 81 mg DAILY JORDON Administration Clopidogrel Bisulfate 75 mg 11/11/17 10:00 Plavix PO DAILY JORDON Clopidogrel Bisulfate 150 mg 11/10/17 10:00 11/10/17 09:16 Plavix PO 11/11/17 10:01 150 mg DAILY JORDON Administration Eptifibatide 75 mg in 100 mls @ 6.133 mls/hr 11/10/17 01:45 11/10/17 01:45 Integrilin IV 11/10/17 13:30 6.133 mls/hr .[id number] JORDON Administration Protocol 1 MCG/KG/MIN Sodium Chloride 1,000 mls @ 50 mls/hr 11/10/17 01:45 11/10/17 02:00 Sodium Chloride 0.9% IV 50 mls/hr .Q20H JORDON Administration Insulin Human Regular 0 units 11/10/17 07:30 11/10/17 12:08 Humulin R Low SC 1 units ACHS JORDON Administration Protocol Ondansetron HCl 4 mg 11/10/17 09:36 Zofran Inj IVP Q6H PRN Nausea/Vomiting Sucralfate 1 gm 11/10/17 06:00 11/10/17 07:00 Carafate Tab PO 1 gm 0600,1600 JORDON Administration - Patient Studies Lab Studies: Lab Studies 11/10/17 11/10/17 11/10/17 Range/Units 12:00 11:03 09:11 WBC (4.5-11.0) 10^3/ul RBC (3.5-6.1) 10^6/uL Hgb (12.0-16.0) g/dL Hct (36.0-48.0) % MCV (80.0-105.0) fl MCH (25.0-35.0) pg MCHC (31.0-37.0) g/dl RDW (11.5-14.5) % Plt Count (120.0-450.0) 10^3/uL MPV (7.0-11.0) fl Gran % (50.0-68.0) % Lymph % (Auto) (22.0-35.0) % [place] % (Auto) (1.0-6.0) % Eos % (Auto) (1.5-5.0) % Baso % (Auto) (0.0-3.0) % Gran # (1.4-6.5) Lymph # (Auto) (1.2-3.4) [place] # (Auto) (0.1-0.6) Eos # (Auto) (0.0-0.7) Baso # (Auto) (0.0-2.0) K/mm3 PT (9.4-12.5) SECONDS INR (0.93-1.08) APTT (25.1-36.5) Seconds Sodium (132-148) mmol/L Potassium (3.6-5.0) mmol/L Chloride (98-107) mmol/L Carbon Dioxide (21-33) mmol/L Anion Gap (10-20) BUN (7-21) mg/dL Creatinine (0.7-1.2) mg/dl Est GFR ( Amer) Est GFR (Non-Af Amer) POC Glucose (mg/dL) 179 H 185 H (65-110) mg/dL Random Glucose (70-110) mg/dL Calcium (8.4-10.5) mg/dL Total Bilirubin 0.6 (0.2-1.3) mg/dL Direct Bilirubin 0.1 (0.0-0.4) mg/dL AST 505 H (14-36) U/L ALT 56 (7-56) U/L Alkaline Phosphatase 119 (38-126) U/L Lactate Dehydrogenase (333-699) U/L Total Creatine Kinase (35-230) U/L Troponin I ng/mL Total Protein 7.3 (5.8-8.3) g/dL Albumin 3.8 (3.0-4.8) g/dL Globulin 3.5 gm/dL Albumin/Globulin Ratio 1.1 (1.1-1.8) Triglycerides (35-160) mg/dL Cholesterol (130-200) mg/dL LDL Cholesterol Direct (0-129) mg/dL HDL Cholesterol (29-60) mg/dL TSH 3rd Generation (0.46-4.68) mIU/mL Blood Type Blood Type Confirm Antibody Screen BBK History Checked 11/10/17 11/10/17 11/10/17 Range/Units 06:00 06:00 06:00 WBC (4.5-11.0) 10^3/ul RBC (3.5-6.1) 10^6/uL Hgb (12.0-16.0) g/dL Hct (36.0-48.0) % MCV (80.0-105.0) fl MCH (25.0-35.0) pg MCHC (31.0-37.0) g/dl RDW (11.5-14.5) % Plt Count (120.0-450.0) 10^3/uL MPV (7.0-11.0) fl Gran % (50.0-68.0) % Lymph % (Auto) (22.0-35.0) % [place] % (Auto) (1.0-6.0) % Eos % (Auto) (1.5-5.0) % Baso % (Auto) (0.0-3.0) % Gran # (1.4-6.5) Lymph # (Auto) (1.2-3.4) [place] # (Auto) (0.1-0.6) Eos # (Auto) (0.0-0.7) Baso # (Auto) (0.0-2.0) K/mm3 PT 12.1 (9.4-12.5) SECONDS INR 1.05 (0.93-1.08) APTT 28.5 (25.1-36.5) Seconds Sodium (132-148) mmol/L Potassium (3.6-5.0) mmol/L Chloride (98-107) mmol/L Carbon Dioxide (21-33) mmol/L Anion Gap (10-20) BUN (7-21) mg/dL Creatinine (0.7-1.2) mg/dl Est GFR ( Amer) Est GFR (Non-Af Amer) POC Glucose (mg/dL) (65-110) mg/dL Random Glucose (70-110) mg/dL Calcium (8.4-10.5) mg/dL Total Bilirubin (0.2-1.3) mg/dL Direct Bilirubin (0.0-0.4) mg/dL AST (14-36) U/L ALT (7-56) U/L Alkaline Phosphatase (38-126) U/L Lactate Dehydrogenase (333-699) U/L Total Creatine Kinase (35-230) U/L Troponin I ng/mL Total Protein (5.8-8.3) g/dL Albumin (3.0-4.8) g/dL Globulin gm/dL Albumin/Globulin Ratio (1.1-1.8) Triglycerides (35-160) mg/dL Cholesterol (130-200) mg/dL LDL Cholesterol Direct (0-129) mg/dL HDL Cholesterol (29-60) mg/dL TSH 3rd Generation 1.41 (0.46-4.68) mIU/mL Blood Type Blood Type Confirm O POSITIVE Antibody Screen BBK History Checked 11/10/17 11/10/17 11/10/17 Range/Units 06:00 06:00 06:00 WBC 14.3 H (4.5-11.0) 10^3/ul RBC 4.02 (3.5-6.1) 10^6/uL Hgb 11.3 L (12.0-16.0) g/dL Hct 35.2 L (36.0-48.0) % MCV 87.6 (80.0-105.0) fl MCH 28.1 (25.0-35.0) pg MCHC 32.1 (31.0-37.0) g/dl RDW 13.4 (11.5-14.5) % Plt Count 292 (120.0-450.0) 10^3/uL MPV 10.3 (7.0-11.0) fl Gran % 84.7 H (50.0-68.0) % Lymph % (Auto) 10.1 L (22.0-35.0) % [place] % (Auto) 4.9 (1.0-6.0) % Eos % (Auto) 0.2 L (1.5-5.0) % Baso % (Auto) 0.1 (0.0-3.0) % Gran # 12.12 H (1.4-6.5) Lymph # (Auto) 1.4 (1.2-3.4) [place] # (Auto) 0.7 H (0.1-0.6) Eos # (Auto) 0.0 (0.0-0.7) Baso # (Auto) 0.01 (0.0-2.0) K/mm3 PT (9.4-12.5) SECONDS INR (0.93-1.08) APTT (25.1-36.5) Seconds Sodium 147 (132-148) mmol/L Potassium 4.0 (3.6-5.0) mmol/L Chloride 107 (98-107) mmol/L Carbon Dioxide 26 (21-33) mmol/L Anion Gap 18 (10-20) BUN 16 (7-21) mg/dL Creatinine 0.9 (0.7-1.2) mg/dl Est GFR ( Amer) > 60 Est GFR (Non-Af Amer) 60 POC Glucose (mg/dL) (65-110) mg/dL Random Glucose 174 H (70-110) mg/dL Calcium 9.5 (8.4-10.5) mg/dL Total Bilirubin 0.4 (0.2-1.3) mg/dL Direct Bilirubin (0.0-0.4) mg/dL AST 553 H D (14-36) U/L ALT 55 (7-56) U/L Alkaline Phosphatase 118 (38-126) U/L Lactate Dehydrogenase (333-699) U/L Total Creatine Kinase (35-230) U/L Troponin I ng/mL Total Protein 7.8 (5.8-8.3) g/dL Albumin 4.1 (3.0-4.8) g/dL Globulin 3.7 gm/dL Albumin/Globulin Ratio 1.1 (1.1-1.8) Triglycerides 87 (35-160) mg/dL Cholesterol 169 (130-200) mg/dL LDL Cholesterol Direct 103 (0-129) mg/dL HDL Cholesterol 43 (29-60) mg/dL TSH 3rd Generation (0.46-4.68) mIU/mL Blood Type O POSITIVE Blood Type Confirm Antibody Screen Negative BBK History Checked No verified bt 11/10/17 11/10/17 11/10/17 Range/Units 00:25 00:25 00:25 WBC 12.1 H (4.5-11.0) 10^3/ul RBC 3.82 (3.5-6.1) 10^6/uL Hgb 10.8 L (12.0-16.0) g/dL Hct 33.3 L (36.0-48.0) % MCV 87.2 (80.0-105.0) fl MCH 28.3 (25.0-35.0) pg MCHC 32.4 (31.0-37.0) g/dl RDW 13.3 (11.5-14.5) % Plt Count 275 (120.0-450.0) 10^3/uL MPV 9.8 (7.0-11.0) fl Gran % 54.6 (50.0-68.0) % Lymph % (Auto) 35.8 H (22.0-35.0) % [place] % (Auto) 6.4 H (1.0-6.0) % Eos % (Auto) 3.0 (1.5-5.0) % Baso % (Auto) 0.2 (0.0-3.0) % Gran # 6.60 H (1.4-6.5) Lymph # (Auto) 4.3 H (1.2-3.4) [place] # (Auto) 0.8 H (0.1-0.6) Eos # (Auto) 0.4 (0.0-0.7) Baso # (Auto) 0.03 (0.0-2.0) K/mm3 PT 11.5 (9.4-12.5) SECONDS INR 1.01 (0.93-1.08) APTT 27.9 (25.1-36.5) Seconds Sodium 146 (132-148) mmol/L Potassium 3.4 L (3.6-5.0) mmol/L Chloride 110 H (98-107) mmol/L Carbon Dioxide 24 (21-33) mmol/L Anion Gap 17 (10-20) BUN 18 (7-21) mg/dL Creatinine 0.9 (0.7-1.2) mg/dl Est GFR ( Amer) > 60 Est GFR (Non-Af Amer) 60 POC Glucose (mg/dL) (65-110) mg/dL Random Glucose 185 H (70-110) mg/dL Calcium 9.4 (8.4-10.5) mg/dL Total Bilirubin 0.3 (0.2-1.3) mg/dL Direct Bilirubin (0.0-0.4) mg/dL AST 29 (14-36) U/L ALT 27 (7-56) U/L Alkaline Phosphatase 105 (38-126) U/L Lactate Dehydrogenase 467 (333-699) U/L Total Creatine Kinase 112 (35-230) U/L Troponin I 0.10 ng/mL Total Protein 7.6 (5.8-8.3) g/dL Albumin 4.0 (3.0-4.8) g/dL Globulin 3.6 gm/dL Albumin/Globulin Ratio 1.1 (1.1-1.8) Triglycerides (35-160) mg/dL Cholesterol (130-200) mg/dL LDL Cholesterol Direct (0-129) mg/dL HDL Cholesterol (29-60) mg/dL TSH 3rd Generation (0.46-4.68) mIU/mL Blood Type Blood Type Confirm Antibody Screen BBK History Checked Laboratory Results - last 24 hr 11/10/17 11/10/17 11/10/17 00:25 00:25 00:25 WBC 12.1 H RBC 3.82 Hgb 10.8 L Hct 33.3 L MCV 87.2 MCH 28.3 MCHC 32.4 RDW 13.3 Plt Count 275 MPV 9.8 Gran % 54.6 Lymph % (Auto) 35.8 H [place] % (Auto) 6.4 H Eos % (Auto) 3.0 Baso % (Auto) 0.2 Gran # 6.60 H Lymph # (Auto) 4.3 H [place] # (Auto) 0.8 H Eos # (Auto) 0.4 Baso # (Auto) 0.03 PT 11.5 INR 1.01 APTT 27.9 Sodium 146 Potassium 3.4 L Chloride 110 H Carbon Dioxide 24 Anion Gap 17 BUN 18 Creatinine 0.9 Est GFR ( Amer) > 60 Est GFR (Non-Af Amer) 60 POC Glucose (mg/dL) Random Glucose 185 H Calcium 9.4 Total Bilirubin 0.3 Direct Bilirubin AST 29 ALT 27 Alkaline Phosphatase 105 Lactate Dehydrogenase 467 Total Creatine Kinase 112 Troponin I 0.10 Total Protein 7.6 Albumin 4.0 Globulin 3.6 Albumin/Globulin Ratio 1.1 Triglycerides Cholesterol LDL Cholesterol Direct HDL Cholesterol TSH 3rd Generation Blood Type Blood Type Confirm Antibody Screen BBK History Checked 11/10/17 11/10/17 11/10/17 06:00 06:00 06:00 WBC 14.3 H RBC 4.02 Hgb 11.3 L Hct 35.2 L MCV 87.6 MCH 28.1 MCHC 32.1 RDW 13.4 Plt Count 292 MPV 10.3 Gran % 84.7 H Lymph % (Auto) 10.1 L [place] % (Auto) 4.9 Eos % (Auto) 0.2 L Baso % (Auto) 0.1 Gran # 12.12 H Lymph # (Auto) 1.4 [place] # (Auto) 0.7 H Eos # (Auto) 0.0 Baso # (Auto) 0.01 PT INR APTT Sodium 147 Potassium 4.0 Chloride 107 Carbon Dioxide 26 Anion Gap 18 BUN 16 Creatinine 0.9 Est GFR ( Amer) > 60 Est GFR (Non-Af Amer) 60 POC Glucose (mg/dL) Random Glucose 174 H Calcium 9.5 Total Bilirubin 0.4 Direct Bilirubin AST 553 H D ALT 55 Alkaline Phosphatase 118 Lactate Dehydrogenase Total Creatine Kinase Troponin I Total Protein 7.8 Albumin 4.1 Globulin 3.7 Albumin/Globulin Ratio 1.1 Triglycerides 87 Cholesterol 169 LDL Cholesterol Direct 103 HDL Cholesterol 43 TSH 3rd Generation Blood Type O POSITIVE Blood Type Confirm Antibody Screen Negative BBK History Checked No verified bt 11/10/17 11/10/17 11/10/17 06:00 06:00 06:00 WBC RBC Hgb Hct MCV MCH MCHC RDW Plt Count MPV Gran % Lymph % (Auto) [place] % (Auto) Eos % (Auto) Baso % (Auto) Gran # Lymph # (Auto) [place] # (Auto) Eos # (Auto) Baso # (Auto) PT 12.1 INR 1.05 APTT 28.5 Sodium Potassium Chloride Carbon Dioxide Anion Gap BUN Creatinine Est GFR ( Amer) Est GFR (Non-Af Amer) POC Glucose (mg/dL) Random Glucose Calcium Total Bilirubin Direct Bilirubin AST ALT Alkaline Phosphatase Lactate Dehydrogenase Total Creatine Kinase Troponin I Total Protein Albumin Globulin Albumin/Globulin Ratio Triglycerides Cholesterol LDL Cholesterol Direct HDL Cholesterol TSH 3rd Generation 1.41 Blood Type Blood Type Confirm O POSITIVE Antibody Screen BBK History Checked 11/10/17 11/10/17 11/10/17 09:11 11:03 12:00 WBC RBC Hgb Hct MCV MCH MCHC RDW Plt Count MPV Gran % Lymph % (Auto) [place] % (Auto) Eos % (Auto) Baso % (Auto) Gran # Lymph # (Auto) [place] # (Auto) Eos # (Auto) Baso # (Auto) PT INR APTT Sodium Potassium Chloride Carbon Dioxide Anion Gap BUN Creatinine Est GFR ( Amer) Est GFR (Non-Af Amer) POC Glucose (mg/dL) 185 H 179 H Random Glucose Calcium Total Bilirubin 0.6 Direct Bilirubin 0.1 AST 505 H ALT 56 Alkaline Phosphatase 119 Lactate Dehydrogenase Total Creatine Kinase Troponin I Total Protein 7.3 Albumin 3.8 Globulin 3.5 Albumin/Globulin Ratio 1.1 Triglycerides Cholesterol LDL Cholesterol Direct HDL Cholesterol TSH 3rd Generation Blood Type Blood Type Confirm Antibody Screen BBK History Checked EKG/Cardiology Studies: Cardiology / EKG Studies 11/10/17 00:19 ELECTROCARDIOGRAM Stat Comment: Reason For Exam: chest pain Critical Care Progress Note - Nutrition Nutrition: Nutrition Category Date Time Status Heart Healthy Diet [DIET] Diets 11/10/17 Breakfast Active Assessment/Plan - Assessment and Plan (Free Text) Plan: Patient seen and examined on rounds with resident, agree with note with following additions/exceptions: Patient is 82yo female with PMHx of HTN, DM, a/w STEMi s/p HEVER to LAD Currently afebrile, HD stable, comfortable in NAD, doing well, denies CP, SOB. STEMi s/p PCI HTN DM Recommend: - supp o2 as needed - duonebs prn - NO ID issues - BP control, start ACEI - ECHO - Lipid panel, TSH, HgbA1C - ASA, Plavix, Statin - Integrillin drip as per caridology - FS control - IVF s/p PCI - GI ppx - DVT ppx - Monitor in CCU
[2017-11-10 11:47] LABS: ALB/GLOB RATIO 1.1 (1.1-1.8); ALBUMIN 3.8 g/dL (3.0-4.8); BILIRUBIN,DIRECT 0.1 mg/dL (0.0-0.4)
--- NOTE | 2017-11-10 15:06 | CARD ---
APPROVED REPORT EXAM: Two-dimensional and M-mode echocardiogram with Doppler and color Doppler. INDICATION Non STEMI 2D DIMENSIONS Left Atrium (2D)5.0 (1.6-4.0cm)IVSd1.2 (0.7-1.1cm) LVDd5.1 (3.9-5.9cm)PWd1.1 (0.7-1.1cm) LVDs4.3 (2.5-4.0cm)FS (%) 15.6 % LVEF (%)32.8 (>50%) M-Mode DIMENSIONS Aortic Root2.80 (2.2-3.7cm)Aortic Cusp Exc.1.50 (1.5-2.0cm) Aortic Valve AoV Peak Rnedzqrq145.0cm/Gage Peak GR.8mmHg Mitral Valve MV E Vhmpmumj20.7cm/sMV A Qergwmlm35.8cm/sE/A ratio0.6 TDI E/Lateral E'0.0E/Medial E'0.0 Tricuspid Valve TR Peak [id number]/sRAP [id number] Peak Gr.50mmHg [id number] LEFT VENTRICLE The left ventricle is normal size. There is borderline concentric left ventricular hypertrophy. The systolic function is severely impaired. Apical and acacia-septal hypokinesis Transmitral Doppler flow pattern is Grade I-abnormal relaxation pattern. No left ventricle thrombus noted on this study. RIGHT VENTRICLE The right ventricle is normal size. There is normal right ventricular wall thickness. The right ventricular systolic function is normal. ATRIA The left atrium is moderately dilated. The right atrium is mildly dilated. AORTIC VALVE The aortic valve is mildly thickened. No aortic regurgitation is present. There is no aortic valvular stenosis. MITRAL VALVE The mitral valve is mildly thickened. Mitral regurgitation is mild. TRICUSPID VALVE There is moderate tricuspid regurgitation. There is moderate to severe pulmonary hypertension. GREAT VESSELS The aortic root is normal in size. PERICARDIAL EFFUSION There is a trace loculated anterior pericardial effusion. <Conclusion> The left ventricle is normal size. There is borderline concentric left ventricular hypertrophy. The systolic function is severely impaired. Apical and acacia-septal hypokinesis Transmitral Doppler flow pattern is Grade I-abnormal relaxation pattern. Mitral regurgitation is mild. There is moderate tricuspid regurgitation. There is moderate to severe pulmonary hypertension.
--- NOTE | 2017-11-10 16:51 | CARD ---
APPROVED REPORT EKG Measurement Heart [id number] <Conclusion> Sinus rhythm with marked sinus arrhythmia Anteroseptal infarct, possibly acute Lateral injury pattern ACUTE NM Abnormal ECG
[2017-11-10] MEDS: Metoprolol Succinate 25 mg XL Tab PO SCH (20:00)
[2017-11-11 06:14] LABS: BASO # 0.03 K/mm3 (0.0-2.0); BASO % 0.2 % (0.0-3.0); EOS # 0.1 (0.0-0.7); EOS % 0.3 % (1.5-5.0); GRAN # 14.98 (1.4-6.5); GRAN % 84.7 % (50.0-68.0); HEMOGLOBIN 10.8 g/dL (12.0-16.0); LYMPH # 1.3 (1.2-3.4); LYMPH % 7.1 % (22.0-35.0); MEAN CORPUSCULAR HEMOGLOBIN 28.1 pg (25.0-35.0); MEAN PLATELET VOLUME 10.3 fl (7.0-11.0); MONO # 1.4 (0.1-0.6); MONO % 7.7 % (1.0-6.0); RBC 3.84 10^6/uL (3.5-6.1); RED CELL DISTRIBUTION WIDTH 13.8 % (11.5-14.5); WHITE BLOOD COUNT 17.7 10^3/ul (4.5-11.0)
--- NOTE | 2017-11-11 06:26 | HP ---
HISTORY OF PRESENT ILLNESS: Patient is an 82 years old, known to me from office practice. Patient states last night after she had dinner, she started to have some chest discomfort. Her son was around. She told her son who called ambulance and she was brought to the emergency room. She was found to have ST elevation, code heart was called, and patient was taken to collaborating supervising physician. Patient is having chest pain and mild shortness of breath and dizziness. PAST MEDICAL HISTORY: She has significant past medical history for, 1. Mild dementia. 2. Non-insulin dependant diabetes. 3. Hypertension. 4. Hyperlipidemia. PAST SURGICAL HISTORY: Significant for cholecystectomy and uterovaginal prolapse and for that she uses a pessary and goes to a supervisor slate splitting for that. SOCIAL HISTORY: Denies smoking, drinking, or alcohol use. ALLERGIES: PATIENT IS NOT ALLERGIC TO ANY MEDICATIONS. MEDICATIONS AT HOME: She is on, 1. Norvasc 10 mg daily. 2. Amaryl 2 mg twice a day. 3. Valsartan 320 daily. 4. Vitamin D 50,000 every weekly. REVIEW OF SYSTEMS: Significant for chest discomfort, but after cath, she feels a lot better. PHYSICAL EXAMINATION: GENERAL: She is awake, alert, oriented, communicative. VITAL SIGNS: She is afebrile. Pulse 85, respirations 20, blood pressure 152/93. LUNGS: Bilateral good airflow. No rhonchi or crackle. HEART: S1 and S2 audible. ABDOMEN: Soft. Nontender. Obese. No hepatosplenomegaly. NEUROLOGICAL: She is awake, alert, oriented, and communicative. LABORATORY EXAMINATION: WBC is 14.3, hemoglobin 11.3, hematocrit 35.2, platelets of 292. PT 12.1, INR 1.05. Chemistry: Sodium 147, potassium 4, chloride 107, CO2 of 26, BUN 16, creatinine 0.9. Blood sugar of 179. AST is 553. ASSESSMENT: 1. Acute myocardial infarction status post code heart, had catheterization done, requiring left anterior descending angioplasty and patient also has left ventricular dysfunction with ejection fraction of 40% and anteroapical akinetic region. 2. Hypertension. 3. Non-insulin dependent diabetes. 4. Hyperlipidemia. PLAN: So, plan is, currently patient is on aspirin. She has been started on statins. She is on Plavix. We will monitor her blood sugar and we will re-evaluate the patient in a.m. We will request for physical therapy evaluation. If the patient remains stable, possible discharge in a.m. Jennie Gibbs MD
[2017-11-11 06:30] LABS: INR 1.18 (0.93-1.08); PARTIAL THROMBOPLASTIN TIME 28.7 Seconds (25.1-36.5); PROTHROMBIN TIME 13.6 SECONDS (9.4-12.5)
--- NOTE | 2017-11-11 06:42 | CP.CCUPN ---
<Dawit Pierre - Last Filed: 11/11/17 11:14> CCU Subjective - Physician Review Subjective (Free Text): 11/11/17 11:14 Patient seen and examined at bedside in ICU. ROS remains limited due to dementia, but patient is able to answer immediate symptom questions appropriately, and denies chest pain/shortness of breath, nausea, or further emesis. CCU Objective - Vital Signs / Intake & Output Vital Signs (Last 4 hours): Vital Signs Pulse Resp BP Pulse Ox 11/11/17 06:00 78 61 H 168/68 H 91 L 11/11/17 05:50 81 28 H 92 L 11/11/17 05:40 82 49 H 92 L 11/11/17 05:30 82 26 H 92 L 11/11/17 05:20 86 35 H 91 L 11/11/17 05:10 86 71 H 92 L 11/11/17 05:00 88 27 H 146/79 90 L 11/11/17 04:50 93 H 36 H 91 L 11/11/17 04:40 80 43 H 91 L 11/11/17 04:30 81 24 91 L 11/11/17 04:20 76 42 H 90 L 11/11/17 04:10 86 35 H 90 L 11/11/17 04:00 136/84 11/11/17 03:59 83 24 88 L 11/11/17 03:50 99 H 33 H 84 L 11/11/17 03:40 80 28 H 90 L 11/11/17 03:30 80 25 H 91 L 11/11/17 03:20 83 43 H 91 L 11/11/17 03:10 83 28 H 90 L 11/11/17 03:00 161/75 H 11/11/17 02:59 91 H 28 H 92 L 11/11/17 02:50 90 43 H 88 L Intake and Output (Last 8hrs): Intake & Output 11/10/17 11/10/17 11/11/17 14:59 22:59 06:59 Intake Total 1102 620 Output Total 650 Balance 1102 -30 Weight 72.802 kg Intake: IV 662 550 Left Antecubital 20 Left Hand 642 550 Oral 440 70 Output: Urine 650 Urine, Voided 650 Other: # Voids Urine, Voided 3 # Bowel Movements 0 0 - Physical Exam Head: Positive for: Atraumatic, Normocephalic Pupils: Positive for: PERRL. Negative for: Non-Reactive, Pinpoint Extroacular Muscles: Positive for: EOMI. Negative for: Gaze Palsy, Entrapment Conjunctiva: Positive for: Normal. Negative for: Injected, Icteric Mouth: Positive for: Moist Mucous Membranes, Normal Lips, Normal Tounge Nose (External): Positive for: Atraumatic. Negative for: Abrasion, Laceration Nose (Internal): Positive for: Normal Inspection, No Active Bleeding. Negative for: Epistaxis Neck: Positive for: Normal Range of Motion. Negative for: JVD Respiratory/Chest: Positive for: Clear to Auscultation, Good Air Exchange. Negative for: Respiratory Distress, Accessory Muscle Use, Wheezes, Decreased Breath Sounds, Rales Cardiovascular: Positive for: Regular Rate and Rhythm, Normal S1, S2. Negative for: Murmurs, Irregular Rhythm, Tachycardic, Bradycardic Abdomen: Positive for: Normal Bowel Sounds. Negative for: Tenderness, Distention, Peritoneal Signs, Feeding Tubes Upper Extremity: Positive for: Normal Inspection, Normal ROM, NORMAL PULSES. Negative for: Cyanosis, Edema, Tenderness, Swelling, Erythema, Deformity Lower Extremity: Positive for: Normal Inspection, NORMAL PULSES, Normal ROM. Negative for: Edema, CALF TENDERNESS, Cyanosis, Tenderness, Swelling, Erythema, Deformity Neurological: Positive for: GCS=15, Speech Normal, Motor Func Grossly Intact, Normal Sensory Function, Gait Normal (hesitant/slow gait when walking with nursing, but otherwise unremarkable), Other (awake and alert, moving all extremities spontaneously, following some commands but reports some weakness with movements) Skin: Positive for: Warm, Dry, Normal Color. Negative for: Rashes Psychiatric: Positive for: Alert, Normal Affect, Normal Mood. Negative for: Oriented x 3 (oriented to self and partially to location (knows in a hospital, not which one), can recall some recent events of hospitalization (i.e. emesis yesterday, chest pain on presentation)), Anxious, Agitated - Medications Active Medications: Active Medications Generic Name Dose Route Start Last Admin Trade Name Freq PRN Reason Stop Dose Admin Aspirin 81 mg 11/10/17 10:00 11/10/17 09:17 Aspirin Chewable PO 81 mg DAILY JORDON Administration Atorvastatin Calcium 20 mg 11/10/17 19:00 11/10/17 20:00 Lipitor PO 20 mg DIN JORDON Administration Clopidogrel Bisulfate 75 mg 11/11/17 10:00 Plavix PO DAILY JORDON Clopidogrel Bisulfate 150 mg 11/10/17 10:00 11/10/17 09:16 Plavix PO 11/11/17 10:01 150 mg DAILY JORDON Administration Glimepiride 2 mg 11/11/17 10:00 Amaryl PO DAILY JORDON Sodium Chloride 1,000 mls @ 50 mls/hr 11/10/17 01:45 11/10/17 02:00 Sodium Chloride 0.9% IV 50 mls/hr .Q20H JORDON Administration Insulin Human Regular 0 units 11/10/17 07:30 11/10/17 22:00 Humulin R Low SC Not Given ACHS [facility] Protocol Lisinopril 10 mg 11/11/17 10:00 Zestril PO DAILY [facility] Losartan Potassium 50 mg 11/11/17 10:00 Cozaar PO DAILY [facility] Metoprolol Succinate 25 mg 11/10/17 19:00 11/10/17 20:00 Toprol Xl PO 25 mg BRK JORDON Administration Ondansetron HCl 4 mg 11/10/17 09:36 Zofran Inj IVP Q6H PRN Nausea/Vomiting Sucralfate 1 gm 11/10/17 06:00 11/11/17 05:36 Carafate Tab PO 1 gm 0600,1600 JORDON Administration - Patient Studies Lab Studies: Lab Studies 11/11/17 11/11/17 11/10/17 Range/Units 05:30 05:30 22:05 WBC 17.7 H D (4.5-11.0) 10^3/ul RBC 3.84 (3.5-6.1) 10^6/uL Hgb 10.8 L (12.0-16.0) g/dL Hct 33.8 L (36.0-48.0) % MCV 88.0 (80.0-105.0) fl MCH 28.1 (25.0-35.0) pg MCHC 32.0 (31.0-37.0) g/dl RDW 13.8 (11.5-14.5) % Plt Count 261 (120.0-450.0) 10^3/uL MPV 10.3 (7.0-11.0) fl Gran % 84.7 H (50.0-68.0) % Lymph % (Auto) 7.1 L (22.0-35.0) % [place] % (Auto) 7.7 H (1.0-6.0) % Eos % (Auto) 0.3 L (1.5-5.0) % Baso % (Auto) 0.2 (0.0-3.0) % Gran # 14.98 H (1.4-6.5) Lymph # (Auto) 1.3 (1.2-3.4) [place] # (Auto) 1.4 H (0.1-0.6) Eos # (Auto) 0.1 (0.0-0.7) Baso # (Auto) 0.03 (0.0-2.0) K/mm3 PT 13.6 H (9.4-12.5) SECONDS INR 1.18 H (0.93-1.08) APTT 28.7 (25.1-36.5) Seconds Sodium (132-148) mmol/L Potassium (3.6-5.0) mmol/L Chloride (98-107) mmol/L Carbon Dioxide (21-33) mmol/L Anion Gap (10-20) BUN (7-21) mg/dL Creatinine (0.7-1.2) mg/dl Est GFR ( Amer) Est GFR (Non-Af Amer) POC Glucose (mg/dL) 179 H (65-110) mg/dL Random Glucose (70-110) mg/dL Hemoglobin A1c (4.2-6.5) % Calcium (8.4-10.5) mg/dL Total Bilirubin (0.2-1.3) mg/dL Direct Bilirubin (0.0-0.4) mg/dL AST (14-36) U/L ALT (7-56) U/L Alkaline Phosphatase (38-126) U/L Total Protein (5.8-8.3) g/dL Albumin (3.0-4.8) g/dL Globulin gm/dL Albumin/Globulin Ratio (1.1-1.8) Triglycerides (35-160) mg/dL Cholesterol (130-200) mg/dL LDL Cholesterol Direct (0-129) mg/dL HDL Cholesterol (29-60) mg/dL TSH 3rd Generation (0.46-4.68) mIU/mL Blood Type Blood Type Confirm Antibody Screen 11/10/17 11/10/17 11/10/17 Range/Units 16:25 12:00 11:03 WBC (4.5-11.0) 10^3/ul RBC (3.5-6.1) 10^6/uL Hgb (12.0-16.0) g/dL Hct (36.0-48.0) % MCV (80.0-105.0) fl MCH (25.0-35.0) pg MCHC (31.0-37.0) g/dl RDW (11.5-14.5) % Plt Count (120.0-450.0) 10^3/uL MPV (7.0-11.0) fl Gran % (50.0-68.0) % Lymph % (Auto) (22.0-35.0) % [place] % (Auto) (1.0-6.0) % Eos % (Auto) (1.5-5.0) % Baso % (Auto) (0.0-3.0) % Gran # (1.4-6.5) Lymph # (Auto) (1.2-3.4) [place] # (Auto) (0.1-0.6) Eos # (Auto) (0.0-0.7) Baso # (Auto) (0.0-2.0) K/mm3 PT (9.4-12.5) SECONDS INR (0.93-1.08) APTT (25.1-36.5) Seconds Sodium (132-148) mmol/L Potassium (3.6-5.0) mmol/L Chloride (98-107) mmol/L Carbon Dioxide (21-33) mmol/L Anion Gap (10-20) BUN (7-21) mg/dL Creatinine (0.7-1.2) mg/dl Est GFR ( Amer) Est GFR (Non-Af Amer) POC Glucose (mg/dL) 145 H 179 H (65-110) mg/dL Random Glucose (70-110) mg/dL Hemoglobin A1c (4.2-6.5) % Calcium (8.4-10.5) mg/dL Total Bilirubin 0.6 (0.2-1.3) mg/dL Direct Bilirubin 0.1 (0.0-0.4) mg/dL AST 505 H (14-36) U/L ALT 56 (7-56) U/L Alkaline Phosphatase 119 (38-126) U/L Total Protein 7.3 (5.8-8.3) g/dL Albumin 3.8 (3.0-4.8) g/dL Globulin 3.5 gm/dL Albumin/Globulin Ratio 1.1 (1.1-1.8) Triglycerides (35-160) mg/dL Cholesterol (130-200) mg/dL LDL Cholesterol Direct (0-129) mg/dL HDL Cholesterol (29-60) mg/dL TSH 3rd Generation (0.46-4.68) mIU/mL Blood Type Blood Type Confirm Antibody Screen 11/10/17 11/10/17 11/10/17 Range/Units 09:11 06:00 06:00 WBC (4.5-11.0) 10^3/ul RBC (3.5-6.1) 10^6/uL Hgb (12.0-16.0) g/dL Hct (36.0-48.0) % MCV (80.0-105.0) fl MCH (25.0-35.0) pg MCHC (31.0-37.0) g/dl RDW (11.5-14.5) % Plt Count (120.0-450.0) 10^3/uL MPV (7.0-11.0) fl Gran % (50.0-68.0) % Lymph % (Auto) (22.0-35.0) % [place] % (Auto) (1.0-6.0) % Eos % (Auto) (1.5-5.0) % Baso % (Auto) (0.0-3.0) % Gran # (1.4-6.5) Lymph # (Auto) (1.2-3.4) [place] # (Auto) (0.1-0.6) Eos # (Auto) (0.0-0.7) Baso # (Auto) (0.0-2.0) K/mm3 PT (9.4-12.5) SECONDS INR (0.93-1.08) APTT (25.1-36.5) Seconds Sodium (132-148) mmol/L Potassium (3.6-5.0) mmol/L Chloride (98-107) mmol/L Carbon Dioxide (21-33) mmol/L Anion Gap (10-20) BUN (7-21) mg/dL Creatinine (0.7-1.2) mg/dl Est GFR ( Amer) Est GFR (Non-Af Amer) POC Glucose (mg/dL) 185 H (65-110) mg/dL Random Glucose (70-110) mg/dL Hemoglobin A1c (4.2-6.5) % Calcium (8.4-10.5) mg/dL Total Bilirubin (0.2-1.3) mg/dL Direct Bilirubin (0.0-0.4) mg/dL AST (14-36) U/L ALT (7-56) U/L Alkaline Phosphatase (38-126) U/L Total Protein (5.8-8.3) g/dL Albumin (3.0-4.8) g/dL Globulin gm/dL Albumin/Globulin Ratio (1.1-1.8) Triglycerides (35-160) mg/dL Cholesterol (130-200) mg/dL LDL Cholesterol Direct (0-129) mg/dL HDL Cholesterol (29-60) mg/dL TSH 3rd Generation 1.41 (0.46-4.68) mIU/mL Blood Type Blood Type Confirm O POSITIVE Antibody Screen 11/10/17 11/10/17 11/10/17 Range/Units 06:00 06:00 06:00 WBC (4.5-11.0) 10^3/ul RBC (3.5-6.1) 10^6/uL Hgb (12.0-16.0) g/dL Hct (36.0-48.0) % MCV (80.0-105.0) fl MCH (25.0-35.0) pg MCHC (31.0-37.0) g/dl RDW (11.5-14.5) % Plt Count (120.0-450.0) 10^3/uL MPV (7.0-11.0) fl Gran % (50.0-68.0) % Lymph % (Auto) (22.0-35.0) % [place] % (Auto) (1.0-6.0) % Eos % (Auto) (1.5-5.0) % Baso % (Auto) (0.0-3.0) % Gran # (1.4-6.5) Lymph # (Auto) (1.2-3.4) [place] # (Auto) (0.1-0.6) Eos # (Auto) (0.0-0.7) Baso # (Auto) (0.0-2.0) K/mm3 PT 12.1 (9.4-12.5) SECONDS INR 1.05 (0.93-1.08) APTT 28.5 (25.1-36.5) Seconds Sodium 147 (132-148) mmol/L Potassium 4.0 (3.6-5.0) mmol/L Chloride 107 (98-107) mmol/L Carbon Dioxide 26 (21-33) mmol/L Anion Gap 18 (10-20) BUN 16 (7-21) mg/dL Creatinine 0.9 (0.7-1.2) mg/dl Est GFR ( Amer) > 60 Est GFR (Non-Af Amer) 60 POC Glucose (mg/dL) (65-110) mg/dL Random Glucose 174 H (70-110) mg/dL Hemoglobin A1c 7.5 H (4.2-6.5) % Calcium 9.5 (8.4-10.5) mg/dL Total Bilirubin 0.4 (0.2-1.3) mg/dL Direct Bilirubin (0.0-0.4) mg/dL AST 553 H D (14-36) U/L ALT 55 (7-56) U/L Alkaline Phosphatase 118 (38-126) U/L Total Protein 7.8 (5.8-8.3) g/dL Albumin 4.1 (3.0-4.8) g/dL Globulin 3.7 gm/dL Albumin/Globulin Ratio 1.1 (1.1-1.8) Triglycerides 87 (35-160) mg/dL Cholesterol 169 (130-200) mg/dL LDL Cholesterol Direct 103 (0-129) mg/dL HDL Cholesterol 43 (29-60) mg/dL TSH 3rd Generation (0.46-4.68) mIU/mL Blood Type Blood Type Confirm Antibody Screen 11/10/17 11/10/17 Range/Units 06:00 06:00 WBC 14.3 H (4.5-11.0) 10^3/ul RBC 4.02 (3.5-6.1) 10^6/uL Hgb 11.3 L (12.0-16.0) g/dL Hct 35.2 L (36.0-48.0) % MCV 87.6 (80.0-105.0) fl MCH 28.1 (25.0-35.0) pg MCHC 32.1 (31.0-37.0) g/dl RDW 13.4 (11.5-14.5) % Plt Count 292 (120.0-450.0) 10^3/uL MPV 10.3 (7.0-11.0) fl Gran % 84.7 H (50.0-68.0) % Lymph % (Auto) 10.1 L (22.0-35.0) % [place] % (Auto) 4.9 (1.0-6.0) % Eos % (Auto) 0.2 L (1.5-5.0) % Baso % (Auto) 0.1 (0.0-3.0) % Gran # 12.12 H (1.4-6.5) Lymph # (Auto) 1.4 (1.2-3.4) [place] # (Auto) 0.7 H (0.1-0.6) Eos # (Auto) 0.0 (0.0-0.7) Baso # (Auto) 0.01 (0.0-2.0) K/mm3 PT (9.4-12.5) SECONDS INR (0.93-1.08) APTT (25.1-36.5) Seconds Sodium (132-148) mmol/L Potassium (3.6-5.0) mmol/L Chloride (98-107) mmol/L Carbon Dioxide (21-33) mmol/L Anion Gap (10-20) BUN (7-21) mg/dL Creatinine (0.7-1.2) mg/dl Est GFR ( Amer) Est GFR (Non-Af Amer) POC Glucose (mg/dL) (65-110) mg/dL Random Glucose (70-110) mg/dL Hemoglobin A1c (4.2-6.5) % Calcium (8.4-10.5) mg/dL Total Bilirubin (0.2-1.3) mg/dL Direct Bilirubin (0.0-0.4) mg/dL AST (14-36) U/L ALT (7-56) U/L Alkaline Phosphatase (38-126) U/L Total Protein (5.8-8.3) g/dL Albumin (3.0-4.8) g/dL Globulin gm/dL Albumin/Globulin Ratio (1.1-1.8) Triglycerides (35-160) mg/dL Cholesterol (130-200) mg/dL LDL Cholesterol Direct (0-129) mg/dL HDL Cholesterol (29-60) mg/dL TSH 3rd Generation (0.46-4.68) mIU/mL Blood Type O POSITIVE Blood Type Confirm Antibody Screen Negative Laboratory Results - last 24 hr 11/10/17 11/10/17 11/10/17 06:00 06:00 06:00 WBC 14.3 H RBC 4.02 Hgb 11.3 L Hct 35.2 L MCV 87.6 MCH 28.1 MCHC 32.1 RDW 13.4 Plt Count 292 MPV 10.3 Gran % 84.7 H Lymph % (Auto) 10.1 L [place] % (Auto) 4.9 Eos % (Auto) 0.2 L Baso % (Auto) 0.1 Gran # 12.12 H Lymph # (Auto) 1.4 [place] # (Auto) 0.7 H Eos # (Auto) 0.0 Baso # (Auto) 0.01 PT INR APTT Sodium 147 Potassium 4.0 Chloride 107 Carbon Dioxide 26 Anion Gap 18 BUN 16 Creatinine 0.9 Est GFR ( Amer) > 60 Est GFR (Non-Af Amer) 60 POC Glucose (mg/dL) Random Glucose 174 H Hemoglobin A1c Calcium 9.5 Total Bilirubin 0.4 Direct Bilirubin AST 553 H D ALT 55 Alkaline Phosphatase 118 Total Protein 7.8 Albumin 4.1 Globulin 3.7 Albumin/Globulin Ratio 1.1 Triglycerides 87 Cholesterol 169 LDL Cholesterol Direct 103 HDL Cholesterol 43 TSH 3rd Generation Blood Type O POSITIVE Blood Type Confirm Antibody Screen Negative 11/10/17 11/10/17 11/10/17 06:00 06:00 06:00 WBC RBC Hgb Hct MCV MCH MCHC RDW Plt Count MPV Gran % Lymph % (Auto) [place] % (Auto) Eos % (Auto) Baso % (Auto) Gran # Lymph # (Auto) [place] # (Auto) Eos # (Auto) Baso # (Auto) PT 12.1 INR 1.05 APTT 28.5 Sodium Potassium Chloride Carbon Dioxide Anion Gap BUN Creatinine Est GFR ( Amer) Est GFR (Non-Af Amer) POC Glucose (mg/dL) Random Glucose Hemoglobin A1c 7.5 H Calcium Total Bilirubin Direct Bilirubin AST ALT Alkaline Phosphatase Total Protein Albumin Globulin Albumin/Globulin Ratio Triglycerides Cholesterol LDL Cholesterol Direct HDL Cholesterol TSH 3rd Generation 1.41 Blood Type Blood Type Confirm Antibody Screen 11/10/17 11/10/17 11/10/17 06:00 09:11 11:03 WBC RBC Hgb Hct MCV MCH MCHC RDW Plt Count MPV Gran % Lymph % (Auto) [place] % (Auto) Eos % (Auto) Baso % (Auto) Gran # Lymph # (Auto) [place] # (Auto) Eos # (Auto) Baso # (Auto) PT INR APTT Sodium Potassium Chloride Carbon Dioxide Anion Gap BUN Creatinine Est GFR ( Amer) Est GFR (Non-Af Amer) POC Glucose (mg/dL) 185 H 179 H Random Glucose Hemoglobin A1c Calcium Total Bilirubin Direct Bilirubin AST ALT Alkaline Phosphatase Total Protein Albumin Globulin Albumin/Globulin Ratio Triglycerides Cholesterol LDL Cholesterol Direct HDL Cholesterol TSH 3rd Generation Blood Type Blood Type Confirm O POSITIVE Antibody Screen 11/10/17 11/10/17 11/10/17 12:00 16:25 22:05 WBC RBC Hgb Hct MCV MCH MCHC RDW Plt Count MPV Gran % Lymph % (Auto) [place] % (Auto) Eos % (Auto) Baso % (Auto) Gran # Lymph # (Auto) [place] # (Auto) Eos # (Auto) Baso # (Auto) PT INR APTT Sodium Potassium Chloride Carbon Dioxide Anion Gap BUN Creatinine Est GFR ( Amer) Est GFR (Non-Af Amer) POC Glucose (mg/dL) 145 H 179 H Random Glucose Hemoglobin A1c Calcium Total Bilirubin 0.6 Direct Bilirubin 0.1 AST 505 H ALT 56 Alkaline Phosphatase 119 Total Protein 7.3 Albumin 3.8 Globulin 3.5 Albumin/Globulin Ratio 1.1 Triglycerides Cholesterol LDL Cholesterol Direct HDL Cholesterol TSH 3rd Generation Blood Type Blood Type Confirm Antibody Screen 11/11/17 11/11/17 05:30 05:30 WBC 17.7 H D RBC 3.84 Hgb 10.8 L Hct 33.8 L MCV 88.0 MCH 28.1 MCHC 32.0 RDW 13.8 Plt Count 261 MPV 10.3 Gran % 84.7 H Lymph % (Auto) 7.1 L [place] % (Auto) 7.7 H Eos % (Auto) 0.3 L Baso % (Auto) 0.2 Gran # 14.98 H Lymph # (Auto) 1.3 [place] # (Auto) 1.4 H Eos # (Auto) 0.1 Baso # (Auto) 0.03 PT 13.6 H INR 1.18 H APTT 28.7 Sodium Potassium Chloride Carbon Dioxide Anion Gap BUN Creatinine Est GFR ( Amer) Est GFR (Non-Af Amer) POC Glucose (mg/dL) Random Glucose Hemoglobin A1c Calcium Total Bilirubin Direct Bilirubin AST ALT Alkaline Phosphatase Total Protein Albumin Globulin Albumin/Globulin Ratio Triglycerides Cholesterol LDL Cholesterol Direct HDL Cholesterol TSH 3rd Generation Blood Type Blood Type Confirm Antibody Screen Fingerstick Blood Sugar Results: 179 Review of Systems - Review of Systems All systems: reviewed and no additional remarkable complaints except (as per HPI ) Critical Care Progress Note - Nutrition Nutrition: Nutrition Category Date Time Status Heart Healthy Diet [DIET] Diets 11/10/17 Breakfast Active Assessment/Plan - Assessment and Plan (Free Text) Assessment: This is an 82 yo AA F with PMH of HTN, DM2, and dementia who presented for chest pain and was reported to have ST-elevations on EKG in field. She was found to have ST elevations consistent with an [place], and is now s/p cardiac cath with 1x HEVER placement in the LAD. Plan: Neuro: -awake and alert, only partially oriented (self and partial location) but likely 2/2 longstanding dementia -maintain normothermia -High fall risk, maintain aspiration precautions Cardio: -s/p STEMI, EKG on admit notable for ST elevations + q waves in V1-4, and ST depressions in II, III, and aVF, trop 0.10 -s/p cardiac cath, 1x HEVER in LAD, completed integrillin drin -continue dual anti-platelets (ASA and plavix), Beta jairo, statin, ALLEGRA- inhibitor -Cardio following, appreciate all recs -Lipid panel and TSH wnl, pending A1c -Echo notable for EF 32.8%, concentric LVH, apical & acacia-septal hypokinesis, mild MR, moderate TR, moderate-severe pulm HTN -Cardio following, appreciate all recs Pulm: -satting 89-92% on NC consistently, but after exercise, remained at 86-88% despite NC, so placed on 100% non-rebreather for an hours, improved and remained > 92% -supplemental O2 as needed -CXR on admit reviewed, notable for cardiomegaly + mild pulm venous congestion, small left pleural effusion vs inferolateral pleural parenchymal thickening; repeat CXR obtained, negative for acute infiltrate, notable for increased vasc congestion GI: -Heart-healthy diet -no further emesis reported -continue carafate and PRN Zofran -no GI ppx s/p cardiac cath as per Cardio -isolated AST elevation likely 2/2 STEMI, downtrending x2 Renal: -making urine -replete electrolytes as needed -Cr stable post-cath at 0.8 Heme: -Hgb stable at 10.8 -SCDs for DVT ppx -no indication for transfusion at this time ID: -afebrile -increasing leukocytosis (12.1 -> 14.3 - 17.7), possibly reactive to stress/ procedure given afebrile -no new infiltrates on CXR, no clear source suggestive of infection Dispo: pending transfer to telemetry FEN: HHD Access: Peripheral IVs Consults: Cardio Ppx: no GI ppx s/p cath, SCDs for DVT Patient seen, reviewed, and examined with attending, Dr. Price <Ronnie Price - Last Filed: 11/12/17 12:15> CCU Objective - Vital Signs / Intake & Output Vital Signs (Last 4 hours): Vital Signs Pulse BP 11/12/17 09:28 82 118/59 L 11/12/17 09:26 118/59 L 11/12/17 09:22 88 118/59 L Intake and Output (Last 8hrs): Intake & Output 11/11/17 11/12/17 11/12/17 22:59 06:59 14:59 Intake Total 920 30 Output Total 500 450 Balance 420 -420 Weight 160 lb 164 lb 1.6 oz Intake: IV 40 0 Left Antecubital 10 0 Left Hand 10 0 Right Hand 10 0 Right Wrist 10 0 Oral 880 30 Tube Feeding 0 TPN/PPN 0 Blood Product 0 Lipid 0 Albumin 0 Other 0 Output: Urine 500 450 Urine, Voided 500 450 Stool 0 Urine/Stool Mix 0 Emesis 0 Oral Regurgitation 0 Other 0 Other: # Voids Urine, Voided 0 # Bowel Movements 0 0 - Medications Active Medications: Active Medications Generic Name Dose Route Start Last Admin Trade Name Freq PRN Reason Stop Dose Admin Aspirin 81 mg 11/12/17 10:00 11/12/17 09:27 Aspirin Chewable PO 81 mg DAILY JORDON Administration Atorvastatin Calcium 20 mg 11/11/17 17:00 11/11/17 17:19 Lipitor PO 20 mg DIN JORDON Administration Clopidogrel Bisulfate 75 mg 11/12/17 10:00 11/12/17 09:27 Plavix PO 75 mg DAILY JORDON Administration Furosemide 40 mg 11/12/17 22:00 Lasix IVP Q12 JORDON Glimepiride 2 mg 11/12/17 10:00 11/12/17 09:31 Amaryl PO 2 mg DAILY JORDON Administration Heparin Sodium/Sodium Chloride 25,000 units in 250 mls @ 8.932 mls/hr 10:15 11/12/17 11:35 Heparin 90626 Units/250ml 1/2 Normal Saline IV 11.82 units/kg/hr .Q24H JORDON 8.8 mls/hr Protocol Administration 12 UNITS/KG/HR Insulin Human Regular 0 units 11/11/17 16:30 11/12/17 09:19 Humulin R Low SC 1 units ACHS JORDON Administration Protocol Levofloxacin/Dextrose 750 mg 11/12/17 10:30 Levaquin 750mg IVPB Q48H [facility] Protocol Losartan Potassium 50 mg 11/12/17 10:00 11/12/17 09:22 Cozaar PO 50 mg DAILY JORDON Administration Metoprolol Succinate 25 mg 11/12/17 08:00 11/12/17 09:28 Toprol Xl PO 25 mg BRK JORDON Administration Ondansetron HCl 4 mg 11/11/17 17:03 Zofran Inj IVP Q6H PRN Nausea/Vomiting Potassium Chloride 10 meq 11/12/17 08:00 11/12/17 09:23 Klor-Con 10 PO 10 meq BRK JORDON Administration Sucralfate 1 gm 11/11/17 16:00 11/12/17 05:28 Carafate Tab PO 1 gm 0600,1600 JORDON Administration - Patient Studies Lab Studies: Lab Studies 11/12/17 11/12/17 11/12/17 Range/Units 11:28 08:03 07:45 WBC (4.5-11.0) 10^3/ul RBC (3.5-6.1) 10^6/uL Hgb (12.0-16.0) g/dL Hct (36.0-48.0) % MCV (80.0-105.0) fl MCH (25.0-35.0) pg MCHC (31.0-37.0) g/dl RDW (11.5-14.5) % Plt Count (120.0-450.0) 10^3/uL MPV (7.0-11.0) fl Gran % (50.0-68.0) % Lymph % (Auto) (22.0-35.0) % [place] % (Auto) (1.0-6.0) % Eos % (Auto) (1.5-5.0) % Baso % (Auto) (0.0-3.0) % Gran # (1.4-6.5) Lymph # (Auto) (1.2-3.4) [place] # (Auto) (0.1-0.6) Eos # (Auto) (0.0-0.7) Baso # (Auto) (0.0-2.0) K/mm3 PT 13.8 H (9.4-12.5) SECONDS INR 1.20 H (0.93-1.08) pCO2 (35-45) mm/Hg pO2 (80-100) mm/Hg HCO3 (21-28) mmol/L ABG pH (7.35-7.45) ABG Total CO2 (22-28) mmol.L ABG O2 Saturation (95-98) % ABG O2 Content (15-23) ML/dl ABG Base Excess (-2.0-3.0) mmol/L ABG Hemoglobin (11.7-17.4) g/dL ABG Carboxyhemoglobin (0.5-1.5) % POC ABG HHb (Measured) (0-5) % ABG Methemoglobin (0.0-3.0) % ABG O2 Capacity (16-24) mL/dl Hgb O2 Saturation (95.0-98.0) % FiO2 % Sodium (132-148) mmol/L Potassium (3.6-5.0) mmol/L Chloride (98-107) mmol/L Carbon Dioxide (21-33) mmol/L Anion Gap (10-20) BUN (7-21) mg/dL Creatinine (0.7-1.2) mg/dl Est GFR ( Amer) Est GFR (Non-Af Amer) POC Glucose (mg/dL) 234 H 182 H (65-110) mg/dL Random Glucose (70-110) mg/dL Calcium (8.4-10.5) mg/dL Phosphorus (2.5-4.5) mg/dL Magnesium (1.7-2.2) mg/dL Total Bilirubin (0.2-1.3) mg/dL AST (14-36) U/L ALT (7-56) U/L Alkaline Phosphatase (38-126) U/L Total Protein (5.8-8.3) g/dL Albumin (3.0-4.8) g/dL Globulin gm/dL Albumin/Globulin Ratio (1.1-1.8) 11/12/17 11/12/17 11/12/17 Range/Units 07:03 06:30 06:30 WBC (4.5-11.0) 10^3/ul RBC (3.5-6.1) 10^6/uL Hgb (12.0-16.0) g/dL Hct (36.0-48.0) % MCV (80.0-105.0) fl MCH (25.0-35.0) pg MCHC (31.0-37.0) g/dl RDW (11.5-14.5) % Plt Count (120.0-450.0) 10^3/uL MPV (7.0-11.0) fl Gran % (50.0-68.0) % Lymph % (Auto) (22.0-35.0) % [place] % (Auto) (1.0-6.0) % Eos % (Auto) (1.5-5.0) % Baso % (Auto) (0.0-3.0) % Gran # (1.4-6.5) Lymph # (Auto) (1.2-3.4) [place] # (Auto) (0.1-0.6) Eos # (Auto) (0.0-0.7) Baso # (Auto) (0.0-2.0) K/mm3 PT (9.4-12.5) SECONDS INR (0.93-1.08) pCO2 42 (35-45) mm/Hg pO2 223.0 H (80-100) mm/Hg HCO3 28.5 H (21-28) mmol/L ABG pH 7.44 (7.35-7.45) ABG Total CO2 29.8 H (22-28) mmol.L ABG O2 Saturation 100.3 H (95-98) % ABG O2 Content 14.2 L (15-23) ML/dl ABG Base Excess 3.9 H (-2.0-3.0) mmol/L ABG Hemoglobin 10.0 L (11.7-17.4) g/dL ABG Carboxyhemoglobin 1.9 H (0.5-1.5) % POC ABG HHb (Measured) -0.3 L (0-5) % ABG Methemoglobin 1.2 (0.0-3.0) % ABG O2 Capacity 14.2 L (16-24) mL/dl Hgb O2 Saturation 97.2 (95.0-98.0) % FiO2 100.0 % Sodium 142 (132-148) mmol/L Potassium 3.4 L (3.6-5.0) mmol/L Chloride 101 (98-107) mmol/L Carbon Dioxide 30 (21-33) mmol/L Anion Gap 15 (10-20) BUN 16 (7-21) mg/dL Creatinine 1.0 (0.7-1.2) mg/dl Est GFR ( Amer) > 60 Est GFR (Non-Af Amer) 53 POC Glucose (mg/dL) (65-110) mg/dL Random Glucose 192 H (70-110) mg/dL Calcium 8.5 (8.4-10.5) mg/dL Phosphorus 2.2 L (2.5-4.5) mg/dL Magnesium 1.8 (1.7-2.2) mg/dL Total Bilirubin 0.8 (0.2-1.3) mg/dL AST 105 H D (14-36) U/L ALT 40 (7-56) U/L Alkaline Phosphatase 98 (38-126) U/L Total Protein 6.5 (5.8-8.3) g/dL Albumin 3.3 (3.0-4.8) g/dL Globulin 3.2 gm/dL Albumin/Globulin Ratio 1.0 L (1.1-1.8) 11/12/17 11/11/17 11/11/17 Range/Units 06:30 22:31 21:24 WBC 18.0 H (4.5-11.0) 10^3/ul RBC 3.35 L (3.5-6.1) 10^6/uL Hgb 9.8 L (12.0-16.0) g/dL Hct 29.2 L (36.0-48.0) % MCV 87.2 (80.0-105.0) fl MCH 29.3 (25.0-35.0) pg MCHC 33.6 (31.0-37.0) g/dl RDW 13.7 (11.5-14.5) % Plt Count 241 (120.0-450.0) 10^3/uL MPV 9.9 (7.0-11.0) fl Gran % 82.5 H (50.0-68.0) % Lymph % (Auto) 8.5 L (22.0-35.0) % [place] % (Auto) 8.3 H (1.0-6.0) % Eos % (Auto) 0.6 L (1.5-5.0) % Baso % (Auto) 0.1 (0.0-3.0) % Gran # 14.85 H (1.4-6.5) Lymph # (Auto) 1.5 (1.2-3.4) [place] # (Auto) 1.5 H (0.1-0.6) Eos # (Auto) 0.1 (0.0-0.7) Baso # (Auto) 0.01 (0.0-2.0) K/mm3 PT (9.4-12.5) SECONDS INR (0.93-1.08) pCO2 37 (35-45) mm/Hg pO2 49.0 L (80-100) mm/Hg HCO3 27.6 (21-28) mmol/L ABG pH 7.48 H (7.35-7.45) ABG Total CO2 28.7 H (22-28) mmol.L ABG O2 Saturation 93.1 L (95-98) % ABG O2 Content 13.9 L (15-23) ML/dl ABG Base Excess 4.0 H (-2.0-3.0) mmol/L ABG Hemoglobin 11.0 L (11.7-17.4) g/dL ABG Carboxyhemoglobin 2.4 H (0.5-1.5) % POC ABG HHb (Measured) 6.7 H (0-5) % ABG Methemoglobin 0.8 (0.0-3.0) % ABG O2 Capacity 14.9 L (16-24) mL/dl Hgb O2 Saturation 90.2 L (95.0-98.0) % FiO2 44.0 % Sodium (132-148) mmol/L Potassium (3.6-5.0) mmol/L Chloride (98-107) mmol/L Carbon Dioxide (21-33) mmol/L Anion Gap (10-20) BUN (7-21) mg/dL Creatinine (0.7-1.2) mg/dl Est GFR ( Amer) Est GFR (Non-Af Amer) POC Glucose (mg/dL) 166 H (65-110) mg/dL Random Glucose (70-110) mg/dL Calcium (8.4-10.5) mg/dL Phosphorus (2.5-4.5) mg/dL Magnesium (1.7-2.2) mg/dL Total Bilirubin (0.2-1.3) mg/dL AST (14-36) U/L ALT (7-56) U/L Alkaline Phosphatase (38-126) U/L Total Protein (5.8-8.3) g/dL Albumin (3.0-4.8) g/dL Globulin gm/dL Albumin/Globulin Ratio (1.1-1.8) 05/31/18 Range/Units 16:34 WBC (4.5-11.0) 10^3/ul RBC (3.5-6.1) 10^6/uL Hgb (12.0-16.0) g/dL Hct (36.0-48.0) % MCV (80.0-105.0) fl MCH (25.0-35.0) pg MCHC (31.0-37.0) g/dl RDW (11.5-14.5) % Plt Count (120.0-450.0) 10^3/uL MPV (7.0-11.0) fl Gran % (50.0-68.0) % Lymph % (Auto) (22.0-35.0) % [place] % (Auto) (1.0-6.0) % Eos % (Auto) (1.5-5.0) % Baso % (Auto) (0.0-3.0) % Gran # (1.4-6.5) Lymph # (Auto) (1.2-3.4) [place] # (Auto) (0.1-0.6) Eos # (Auto) (0.0-0.7) Baso # (Auto) (0.0-2.0) K/mm3 PT (9.4-12.5) SECONDS INR (0.93-1.08) pCO2 (35-45) mm/Hg pO2 (80-100) mm/Hg HCO3 (21-28) mmol/L ABG pH (7.35-7.45) ABG Total CO2 (22-28) mmol.L ABG O2 Saturation (95-98) % ABG O2 Content (15-23) ML/dl ABG Base Excess (-2.0-3.0) mmol/L ABG Hemoglobin (11.7-17.4) g/dL ABG Carboxyhemoglobin (0.5-1.5) % POC ABG HHb (Measured) (0-5) % ABG Methemoglobin (0.0-3.0) % ABG O2 Capacity (16-24) mL/dl Hgb O2 Saturation (95.0-98.0) % FiO2 % Sodium (132-148) mmol/L Potassium (3.6-5.0) mmol/L Chloride (98-107) mmol/L Carbon Dioxide (21-33) mmol/L Anion Gap (10-20) BUN (7-21) mg/dL Creatinine (0.7-1.2) mg/dl Est GFR ( Amer) Est GFR (Non-Af Amer) POC Glucose (mg/dL) 206 H (65-110) mg/dL Random Glucose (70-110) mg/dL Calcium (8.4-10.5) mg/dL Phosphorus (2.5-4.5) mg/dL Magnesium (1.7-2.2) mg/dL Total Bilirubin (0.2-1.3) mg/dL AST (14-36) U/L ALT (7-56) U/L Alkaline Phosphatase (38-126) U/L Total Protein (5.8-8.3) g/dL Albumin (3.0-4.8) g/dL Globulin gm/dL Albumin/Globulin Ratio (1.1-1.8) Laboratory Results - last 24 hr 11/11/17 11/11/17 11/11/17 16:34 21:24 22:31 WBC RBC Hgb Hct MCV MCH MCHC RDW Plt Count MPV Gran % Lymph % (Auto) [place] % (Auto) Eos % (Auto) Baso % (Auto) Gran # Lymph # (Auto) [place] # (Auto) Eos # (Auto) Baso # (Auto) PT INR pCO2 37 pO2 49.0 L HCO3 27.6 ABG pH 7.48 H ABG Total CO2 28.7 H ABG O2 Saturation 93.1 L ABG O2 Content 13.9 L ABG Base Excess 4.0 H ABG Hemoglobin 11.0 L ABG Carboxyhemoglobin 2.4 H POC ABG HHb (Measured) 6.7 H ABG Methemoglobin 0.8 ABG O2 Capacity 14.9 L Hgb O2 Saturation 90.2 L FiO2 44.0 Sodium Potassium Chloride Carbon Dioxide Anion Gap BUN Creatinine Est GFR ( Amer) Est GFR (Non-Af Amer) POC Glucose (mg/dL) 206 H 166 H Random Glucose Calcium Phosphorus Magnesium Total Bilirubin AST ALT Alkaline Phosphatase Total Protein Albumin Globulin Albumin/Globulin Ratio 11/12/17 11/12/17 11/12/17 06:30 06:30 06:30 WBC 18.0 H RBC 3.35 L Hgb 9.8 L Hct 29.2 L MCV 87.2 MCH 29.3 MCHC 33.6 RDW 13.7 Plt Count 241 MPV 9.9 Gran % 82.5 H Lymph % (Auto) 8.5 L [place] % (Auto) 8.3 H Eos % (Auto) 0.6 L Baso % (Auto) 0.1 Gran # 14.85 H Lymph # (Auto) 1.5 [place] # (Auto) 1.5 H Eos # (Auto) 0.1 Baso # (Auto) 0.01 PT INR pCO2 pO2 HCO3 ABG pH ABG Total CO2 ABG O2 Saturation ABG O2 Content ABG Base Excess ABG Hemoglobin ABG Carboxyhemoglobin POC ABG HHb (Measured) ABG Methemoglobin ABG O2 Capacity Hgb O2 Saturation FiO2 Sodium 142 Potassium 3.4 L Chloride 101 Carbon Dioxide 30 Anion Gap 15 BUN 16 Creatinine 1.0 Est GFR ( Amer) > 60 Est GFR (Non-Af Amer) 53 POC Glucose (mg/dL) Random Glucose 192 H Calcium 8.5 Phosphorus 2.2 L Magnesium 1.8 Total Bilirubin 0.8 AST 105 H D ALT 40 Alkaline Phosphatase 98 Total Protein 6.5 Albumin 3.3 Globulin 3.2 Albumin/Globulin Ratio 1.0 L 11/12/17 11/12/17 11/12/17 07:03 07:45 08:03 WBC RBC Hgb Hct MCV MCH MCHC RDW Plt Count MPV Gran % Lymph % (Auto) [place] % (Auto) Eos % (Auto) Baso % (Auto) Gran # Lymph # (Auto) [place] # (Auto) Eos # (Auto) Baso # (Auto) PT 13.8 H INR 1.20 H pCO2 42 pO2 223.0 H HCO3 28.5 H ABG pH 7.44 ABG Total CO2 29.8 H ABG O2 Saturation 100.3 H ABG O2 Content 14.2 L ABG Base Excess 3.9 H ABG Hemoglobin 10.0 L ABG Carboxyhemoglobin 1.9 H POC ABG HHb (Measured) -0.3 L ABG Methemoglobin 1.2 ABG O2 Capacity 14.2 L Hgb O2 Saturation 97.2 FiO2 100.0 Sodium Potassium Chloride Carbon Dioxide Anion Gap BUN Creatinine Est GFR ( Amer) Est GFR (Non-Af Amer) POC Glucose (mg/dL) 182 H Random Glucose Calcium Phosphorus Magnesium Total Bilirubin AST ALT Alkaline Phosphatase Total Protein Albumin Globulin Albumin/Globulin Ratio 11/12/17 11:28 WBC RBC Hgb Hct MCV MCH MCHC RDW Plt Count MPV Gran % Lymph % (Auto) [place] % (Auto) Eos % (Auto) Baso % (Auto) Gran # Lymph # (Auto) [place] # (Auto) Eos # (Auto) Baso # (Auto) PT INR pCO2 pO2 HCO3 ABG pH ABG Total CO2 ABG O2 Saturation ABG O2 Content ABG Base Excess ABG Hemoglobin ABG Carboxyhemoglobin POC ABG HHb (Measured) ABG Methemoglobin ABG O2 Capacity Hgb O2 Saturation FiO2 Sodium Potassium Chloride Carbon Dioxide Anion Gap BUN Creatinine Est GFR ( Amer) Est GFR (Non-Af Amer) POC Glucose (mg/dL) 234 H Random Glucose Calcium Phosphorus Magnesium Total Bilirubin AST ALT Alkaline Phosphatase Total Protein Albumin Globulin Albumin/Globulin Ratio EKG/Cardiology Studies: Cardiology / EKG Studies 11/11/17 20:54 EKG [ELECTROCARDIOGRAM] Stat Comment: Had a cardiac stent 2 ava ago Reason For Exam: pt is desaturating Attending/Attestation - Attestation I have personally seen and examined this patient.: Yes I have fully participated in the care of the patient.: Yes I have reviewed all pertinent clinical information: Yes Notes (Text): 11/12/17 12:11 82 yo female with ACS s/p PCI, completed her integrilin drip. Continue DAP, bb, statins. OOB to chair, conservatvie 02 and fluid managment, cardiology follow up. Ok to downgrade to tele (d/w and agreed by Dr. Arteaga) ccm time 40 min
[2017-11-11 07:21] LABS: ALBUMIN 3.6 g/dL (3.0-4.8); ALT/SGPT 48 U/L (7-56); AST/SGOT 216 U/L (14-36); BLOOD UREA NITROGEN 13 mg/dL (7-21); CALCIUM 8.8 mg/dL (8.4-10.5); GFR AFRICAN-AMERICAN > 60; GFR NON-AFRICAN AMERICAN > 60
[2017-11-11] MEDS: Insulin Reg-LOW-Coverage SC SCH ×4 (07:53→22:31)
[2017-11-11] MEDS: Metoprolol Succinate 25 mg XL Tab PO SCH (07:56)
--- NOTE | 2017-11-11 10:35 | RAD ---
HISTORY: desat, elevated wbcs COMPARISON: 11/10/2017 FINDINGS: LUNGS: No active pulmonary disease. PLEURA: No significant pleural effusion identified, no pneumothorax apparent. CARDIOVASCULAR: Mild cardiomegaly. Moderate vascular congestion which has increased OSSEOUS STRUCTURES: No significant abnormalities. VISUALIZED UPPER ABDOMEN: Normal. OTHER FINDINGS: None. IMPRESSION: Moderate vascular congestion increased from prior exam
--- NOTE | 2017-11-11 14:40 | PN ---
DATE: 11/11/2017 CARDIOLOGY FOLLOWUP SUBJECTIVE: The patient is chest pain free. Her breathing is fine. She feels weak. PHYSICAL EXAMINATION: VITAL SIGNS: Blood pressure is 163/70, the heart rates in the 80s. NECK: Negative JVD. LUNGS: Without rales. HEART: Reveals S1, S2. EXTREMITIES: Without edema. LABORATORY DATA: Hemoglobin is 10.8, white count is 17.7. Glucose is 188. The liver function tests are 216. IMPRESSION: 1. Status post anterior wall myocardial infarction. 2. Status post emergency percutaneous transluminal coronary angioplasty and stent. 3. Diabetes mellitus. 4. Hypertension. 5. Weakness. 6. Hypercholesterolemia. PLAN: Given these findings, the patient will begin with physical therapy and ambulating. We will transfer the patient to telemetry today. An ARB was added for better blood pressure control. Gregory Arteaga MD
--- NOTE | 2017-11-11 16:55 | PN ---
DATE: 11/11/2017 SUBJECTIVE: The patient is 82 years old, seen and examined, complained of shortness of breath, just had little exercise in the hallway. Currently on 100% oxygen. PHYSICAL EXAMINATION: VITAL SIGNS: She is afebrile, pulse 84, respirations 29, blood pressure . LUNGS: Bilateral fair airflow. No rhonchi or crackle. HEART: S1 and S2 audible. ABDOMEN: Soft, nontender. No rebound. No guarding. NEUROLOGICAL: She is awake, alert, oriented, communicative, able to ambulate. EXTREMITIES: Bilateral legs, no edema. LABORATORY DATA: WBC 7.7, hemoglobin 10.8, hematocrit 33.8, platelet 261. PT 13.6, INR 1.18. Chemistry: Sodium 143, potassium 3.9, chloride 107, CO2 27, BUN 13, creatinine 0.8, blood sugar of 257. X-ray chest done shows moderate vascular congestion increased from . ASSESSMENT: 1. Acute myocardial infarction status post code heart and angioplasty with left anterior descending coronary. 2. Cardiomyopathy with left ventricular dysfunction, ejection fraction of 40%. 3. Hypertension. 4. Noninsulin-dependent diabetes. 5. Congestive heart failure. 6. Hyperlipidemia. PLAN: Currently patient is on glimepiride, aspirin, losartan. We will monitor blood sugar. Continue her on beta-jairo and start her on Lasix. Monitor her electrolyte. She will be transferred to Telemetry. Jennie Gibbs MD
[2017-11-11 21:27] LABS: ARTERIAL BLOOD GAS HCO3 27.6 mmol/L (21-28); ARTERIAL BLOOD GAS O2 CAPACITY 14.9 mL/dl (16-24); ARTERIAL BLOOD GAS O2 CONTENT 13.9 ML/dl (15-23); ARTERIAL BLOOD GAS O2 SAT 93.1 % (95-98); ARTERIAL BLOOD GAS PCO2 37 mm/Hg (35-45); ARTERIAL BLOOD GAS PH 7.48 (7.35-7.45); ARTERIAL BLOOD GAS TCO2 28.7 mmol.L (22-28)
[2017-11-11] MEDS ORDERED: Nitroglycerin 2% Ointment Foilpak UD TOP ONE (21:44)
--- NOTE | 2017-11-11 23:56 | CP.PCM.PN ---
Subjective - Date & Time of Evaluation Date of Evaluation: 11/11/17 Time of Evaluation: 21:00 - Subjective Subjective: Pt seen at the request of her RN for observation of desaturation. On 2L O2 by NC her O2 sat was 85% On 6L O2 by NC it is 93%. Pt denies any c/o chest pain ,SOB,calf pain or any other symptoms. Pt had a cardiac stent placed 2 days ago. Objective - Vital Signs/Intake and Output Vital Signs (last 24 hours): Temp Pulse Resp BP Pulse Ox 98.9 F 88 28 H 156/81 H 89 L 11/11/17 16:00 11/11/17 17:37 11/11/17 17:20 11/11/17 17:01 11/11/17 13:10 Intake and Output: 11/11/17 11/12/17 18:59 06:59 Intake Total 920 Output Total 500 Balance 420 - Medications Medications: Current Medications Aspirin (Aspirin Chewable) 81 mg PO DAILY COUNT INCLUDES [facility] Atorvastatin Calcium (Lipitor) 20 mg PO DIN COUNT INCLUDES THE [facility] Last Admin: 11/11/17 17:19 Dose: 20 mg Clopidogrel Bisulfate (Plavix) 75 mg PO DAILY COUNT INCLUDES THE [facility] Furosemide (Lasix) 40 mg IVP DAILY COUNT INCLUDES THE [facility] Glimepiride (Amaryl) 2 mg PO DAILY COUNT INCLUDES THE [facility] Insulin Human Regular (Humulin R Low) 0 units SC ACHS COUNT INCLUDES THE [facility] PRN Reason: Protocol Last Admin: 11/11/17 17:19 Dose: 2 units Losartan Potassium (Cozaar) 50 mg PO DAILY COUNT INCLUDES [facility] Metoprolol Succinate (Toprol Xl) 25 mg PO BRK COUNT INCLUDES THE [facility] Ondansetron HCl (Zofran Inj) 4 mg IVP Q6H PRN PRN Reason: Nausea/Vomiting Potassium Chloride (Klor-Con 10) 10 meq PO BRK COUNT INCLUDES THE [facility] Sucralfate (Carafate Tab) 1 gm PO 0600,1600 COUNT INCLUDES THE [facility] Last Admin: 11/11/17 17:18 Dose: 1 gm - Labs Labs: PT 13.6 SECONDS (9.4-12.5) H 11/11/17 05:30 INR 1.18 (0.93-1.08) H 11/11/17 05:30 APTT 28.7 Seconds (25.1-36.5) 11/11/17 05:30 - Constitutional Appears: No Acute Distress - Head Exam Head Exam: ATRAUMATIC, NORMAL INSPECTION, NORMOCEPHALIC - Eye Exam Eye Exam: PERRL - ENT Exam ENT Exam: Mucous Membranes Moist - Neck Exam Neck Exam: Normal Inspection - Respiratory Exam Respiratory Exam: Rales (bilateral) - Cardiovascular Exam Cardiovascular Exam: REGULAR RHYTHM - GI/Abdominal Exam GI & Abdominal Exam: Soft, Normal Bowel Sounds. absent: Tenderness - Extremities Exam Extremities Exam: Normal Inspection. absent: Calf Tenderness - Neurological Exam Neurological Exam: Altered, Awake, Oriented x3 - Psychiatric Exam Psychiatric exam: Anxious - Skin Skin Exam: Dry, Warm Assessment and Plan - Assessment and Plan (Free Text) Assessment: CHF Hypoxemia Cardiac Ischemia(Lateral wall Ischemia) Plan: ABG on 6L O2 by NC shows hypoxemia. Cxray shows CHF EKG shows ST elevation in V2 and V3(same as prior EKG),T wave inversion in V4, V5 And V6) Pt was placed on 100% O2 by ventimask,given Lasix iv and nitropaste 1"was placed on the chest wall. Tansferred to Critical care ,Dr Hutchinson accepted pt. Dr Gibbs was notified.
--- NOTE | 2017-11-12 02:52 | CP.PCM.CON ---
<Puneet Lopez - Last Filed: 11/12/17 03:37> History of Present Illness - History of Present Illness History of Present Illness: 82 year old female with a past medical history significant for dementia, DM2 and HTN who presented with chest pain and was found to have an anterior wall DE and underwent emergent PTCA with HEVER placed in the proximal-mid LAD. The patient was kept on an integrillin drip for 18 hours in the CCU and was pending transfer to telemetry the ICU team. The patient's nurse observed the patient to be tachypneic and hypoxic while on 6 L/min of oxygen via non-rebreather mask. A stat ABG and chest-X ray showed the patient was in fact hypoxemic with a PaO2 of 49 and with the chest X-ray showing cephalization, cardiomegaly, unchanged compared to the AM chest-X ray. Given the patient's dyspnea and hypoxemia, she was kept in the CCU for closer monitoring. PMH: dementia, DM2 and HTN PSH: Cholecystectomy and bladder prolapse Family History: Unknown to patients son Social History: Denies any tobacco, alcohol or illicit drug abuse Allergies: NKDA Home Medications: See MAR Review of Systems - Review of Systems All systems: reviewed and no additional remarkable complaints except (as per HPI ) Past Patient History - Past Social History Smoking Status: Never Smoked - CARDIAC Hx Cardiac Disorders: Yes Hx Hypertension: Yes - PULMONARY Hx Respiratory Disorders: No - HEENT Other/Comment: wears reading glasses - RENAL Other/Comment: prolapsed bladder -appt. with Dr Ricks every 3 months - ENDOCRINE/METABOLIC Hx Diabetes Mellitus Type 2: Yes - MUSCULOSKELETAL/RHEUMATOLOGICAL Hx Falls: No - PSYCHIATRIC Hx Substance Use: No - SURGICAL HISTORY Hx Cholecystectomy: Yes Meds Allergies/Adverse Reactions: Allergies Allergy/AdvReac Type Severity Reaction Status Date / Time No Known Allergies Allergy Verified 11/10/17 00:18 - Medications Medications: Current Medications Aspirin (Aspirin Chewable) 81 mg PO DAILY [facility] Atorvastatin Calcium (Lipitor) 20 mg PO DIN [facility] Last Admin: 11/11/17 17:19 Dose: 20 mg Clopidogrel Bisulfate (Plavix) 75 mg PO DAILY [facility] Furosemide (Lasix) 40 mg IVP DAILY [facility] Glimepiride (Amaryl) 2 mg PO DAILY [facility] Insulin Human Regular (Humulin R Low) 0 units SC ACHS [facility] PRN Reason: Protocol Last Admin: 11/11/17 22:31 Dose: Not Given Losartan Potassium (Cozaar) 50 mg PO DAILY [facility] Metoprolol Succinate (Toprol Xl) 25 mg PO BRK [facility] Ondansetron HCl (Zofran Inj) 4 mg IVP Q6H PRN PRN Reason: Nausea/Vomiting Potassium Chloride (Klor-Con 10) 10 meq PO BRK [facility] Sucralfate (Carafate Tab) 1 gm PO 0600,1600 [facility] Last Admin: 11/11/17 17:18 Dose: 1 gm Physical Exam - Constitutional Appears: Non-toxic, No Acute Distress - Head Exam Head Exam: ATRAUMATIC, NORMOCEPHALIC - Eye Exam Eye Exam: EOMI, Normal appearance - ENT Exam ENT Exam: Mucous Membranes Moist - Neck Exam Neck exam: Positive for: Normal Inspection - Respiratory Exam Respiratory Exam: Rales - Cardiovascular Exam Cardiovascular Exam: REGULAR RHYTHM, +S1, +S2 - GI/Abdominal Exam GI & Abdominal Exam: Normal Bowel Sounds - Extremities Exam Extremities exam: Positive for: normal inspection. Negative for: pedal edema - Neurological Exam Neurological exam: Alert - Psychiatric Exam Psychiatric exam: Normal Affect, Normal Mood - Skin Skin Exam: Dry, Intact, Normal Color, Warm Results - Vital Signs Recent Vital Signs: Last Vital Signs Temp 98.8 F 11/12/17 00:00 Pulse 84 11/12/17 02:10 Resp 41 H 11/12/17 02:10 BP 123/73 11/12/17 02:00 Pulse Ox 100 11/12/17 02:10 - Labs Result Diagrams: 11/11/17 05:30 11/11/17 05:30 Labs: Laboratory Results - last 24 hr 11/11/17 11/11/17 11/11/17 10:55 16:34 21:24 pCO2 37 pO2 49.0 L HCO3 27.6 ABG pH 7.48 H ABG Total CO2 28.7 H ABG O2 Saturation 93.1 L ABG O2 Content 13.9 L ABG Base Excess 4.0 H ABG Hemoglobin 11.0 L ABG Carboxyhemoglobin 2.4 H POC ABG HHb (Measured) 6.7 H ABG Methemoglobin 0.8 ABG O2 Capacity 14.9 L Hgb O2 Saturation 90.2 L FiO2 44.0 POC Glucose (mg/dL) 257 H 206 H 11/11/17 22:31 pCO2 pO2 HCO3 ABG pH ABG Total CO2 ABG O2 Saturation ABG O2 Content ABG Base Excess ABG Hemoglobin ABG Carboxyhemoglobin POC ABG HHb (Measured) ABG Methemoglobin ABG O2 Capacity Hgb O2 Saturation FiO2 POC Glucose (mg/dL) 166 H Assessment & Plan - Assessment and Plan (Free Text) Assessment: 82 year old female with a past medical history of hypertension, DM, dementia who is s/p anterior wall DE with PTCA and HEVER of the Left Anterior descending Artery. She was found to be hypoxemix with persistent infiltrates concerning for worsening CHF or possible cardiopulmonary complications post-DE. She was kept in the ICU for closer monitoring. Repeat EKG showed natural evolution post anterior/lateral wall DE. Plan: continue with current medical therapy - Follow up morning ABG (with the patient on or off oxygen). Case reviewed and discussed with Dr. Hutchinson - Date & Time Date: 11/12/17 Time: 03:32 <Sreekanth Hutchinson - Last Filed: 11/12/17 04:43> Meds - Medications Medications: Current Medications Aspirin (Aspirin Chewable) 81 mg PO DAILY [facility] Atorvastatin Calcium (Lipitor) 20 mg PO DIN [facility] Last Admin: 11/11/17 17:19 Dose: 20 mg Clopidogrel Bisulfate (Plavix) 75 mg PO DAILY [facility] Furosemide (Lasix) 40 mg IVP DAILY [facility] Glimepiride (Amaryl) 2 mg PO DAILY [facility] Insulin Human Regular (Humulin R Low) 0 units SC ACHS [facility] PRN Reason: Protocol Last Admin: 11/11/17 22:31 Dose: Not Given Losartan Potassium (Cozaar) 50 mg PO DAILY [facility] Metoprolol Succinate (Toprol Xl) 25 mg PO BRK [facility] Ondansetron HCl (Zofran Inj) 4 mg IVP Q6H PRN PRN Reason: Nausea/Vomiting Potassium Chloride (Klor-Con 10) 10 meq PO BRK [facility] Sucralfate (Carafate Tab) 1 gm PO 0600,1600 [facility] Last Admin: 11/11/17 17:18 Dose: 1 gm Results - Vital Signs Recent Vital Signs: Last Vital Signs Temp 98.8 F 11/12/17 00:00 Pulse 78 11/12/17 04:30 Resp 18 11/12/17 04:30 BP 130/70 11/12/17 04:00 Pulse Ox 100 11/12/17 04:30 - Labs Result Diagrams: 11/11/17 05:30 11/11/17 05:30 Labs: Laboratory Results - last 24 hr 11/11/17 11/11/17 11/11/17 10:55 16:34 21:24 pCO2 37 pO2 49.0 L HCO3 27.6 ABG pH 7.48 H ABG Total CO2 28.7 H ABG O2 Saturation 93.1 L ABG O2 Content 13.9 L ABG Base Excess 4.0 H ABG Hemoglobin 11.0 L ABG Carboxyhemoglobin 2.4 H POC ABG HHb (Measured) 6.7 H ABG Methemoglobin 0.8 ABG O2 Capacity 14.9 L Hgb O2 Saturation 90.2 L FiO2 44.0 POC Glucose (mg/dL) 257 H 206 H 11/11/17 22:31 pCO2 pO2 HCO3 ABG pH ABG Total CO2 ABG O2 Saturation ABG O2 Content ABG Base Excess ABG Hemoglobin ABG Carboxyhemoglobin POC ABG HHb (Measured) ABG Methemoglobin ABG O2 Capacity Hgb O2 Saturation FiO2 POC Glucose (mg/dL) 166 H Attending/Attestation - Attestation I have personally seen and examined this patient.: Yes I have fully participated in the care of the patient.: Yes I have reviewed all pertinent clinical information: Yes
[2017-11-12 07:10] LABS: ARTERIAL BLOOD GAS HCO3 28.5 mmol/L (21-28); ARTERIAL BLOOD GAS O2 CAPACITY 14.2 mL/dl (16-24); ARTERIAL BLOOD GAS O2 CONTENT 14.2 ML/dl (15-23); ARTERIAL BLOOD GAS O2 SAT 100.3 % (95-98); ARTERIAL BLOOD GAS PCO2 42 mm/Hg (35-45); ARTERIAL BLOOD GAS PH 7.44 (7.35-7.45); ARTERIAL BLOOD GAS TCO2 29.8 mmol.L (22-28)
[2017-11-12 07:15] LABS: BASO # 0.01 K/mm3 (0.0-2.0); BASO % 0.1 % (0.0-3.0); EOS # 0.1 (0.0-0.7); EOS % 0.6 % (1.5-5.0); GRAN # 14.85 (1.4-6.5); GRAN % 82.5 % (50.0-68.0); HEMOGLOBIN 9.8 g/dL (12.0-16.0); LYMPH # 1.5 (1.2-3.4); LYMPH % 8.5 % (22.0-35.0); MEAN CELL VOLUME 87.2 fl (80.0-105.0); MEAN CORPUSCULAR HEMOGLOBIN 29.3 pg (25.0-35.0); MEAN CORPUSCULAR HGB CONC 33.6 g/dl (31.0-37.0); MEAN PLATELET VOLUME 9.9 fl (7.0-11.0); MONO # 1.5 (0.1-0.6); MONO % 8.3 % (1.0-6.0); RBC 3.35 10^6/uL (3.5-6.1); RED CELL DISTRIBUTION WIDTH 13.7 % (11.5-14.5)
[2017-11-12 07:54] LABS: ALBUMIN 3.3 g/dL (3.0-4.8); ALT/SGPT 40 U/L (7-56); AST/SGOT 105 U/L (14-36); BLOOD UREA NITROGEN 16 mg/dL (7-21); CALCIUM 8.5 mg/dL (8.4-10.5); GFR AFRICAN-AMERICAN > 60; GFR NON-AFRICAN AMERICAN 53
[2017-11-12] MEDS ORDERED: Potassium Chloride 10 mEq ER Tab PO SCH (08:00)
--- NOTE | 2017-11-12 08:30 | RAD ---
HISTORY: pt is desaturating COMPARISON: November 11, 2017. Time of the most recent examination: 10:12. FINDINGS: LUNGS: Pulmonary vascular congestion, progressive PLEURA: No significant pleural effusion identified, no pneumothorax apparent. CARDIOVASCULAR: Cardiomegaly. OSSEOUS STRUCTURES: No significant abnormalities. VISUALIZED UPPER ABDOMEN: Normal. OTHER FINDINGS: None. IMPRESSION: Worsening, presumed cardiogenic, pulmonary edema.
[2017-11-12 08:37] LABS: INR 1.2 (0.93-1.08); PROTHROMBIN TIME 13.8 SECONDS (9.4-12.5)
[2017-11-12] MEDS ORDERED: Potassium Chloride 40 mEq/30 ml LIQ UD PO ONE (09:19)
[2017-11-12] MEDS: Insulin Reg-LOW-Coverage SC SCH ×4 (09:19→23:39)
[2017-11-12] MEDS: Potassium Chloride 10 mEq ER Tab PO SCH (09:23)
[2017-11-12] MEDS: Metoprolol Succinate 25 mg XL Tab PO SCH (09:28)
[2017-11-12] MEDS: Heparin25000 units/250ml 1/2NS 25,000 UNITS/250 ML BAG IV SCH (11:35)
--- NOTE | 2017-11-12 12:25 | CP.CCUPN ---
<Dawit Pierre - Last Filed: 11/12/17 12:43> CCU Subjective - Physician Review Subjective (Free Text): 11/12/17 12:16 Patient seen and examined at bedside in ICU. ROS remains limited due to dementia, but patient is able to answer immediate symptom questions appropriately, and denies chest pain/shortness of breath, nausea, or further emesis. Overnight, patient was reported to desaturate to low 80's on 2L NC, and ABG obtained at that time was notable for paO2 of 49. She was placed on 100 % non-rebreather mask and sats subsequently corrected, now back on NC support and satting well. As per Cardio, given findings on EKG today, concern that patient needs to be recathed, and instructed to start IV BID Lasix 40mg and heparin drip, pending possible Cath 11/15/17. To remain in ICU for close monitoring pending repeat cath. Additionally of note, patient has had increasing WBC count of unclear etiology despite remaining afebrile; reviewed CXR and given possible infiltrate at R base , will empirically cover with Levofloxacin pending cultures and procal workup. CCU Objective - Vital Signs / Intake & Output Vital Signs (Last 4 hours): Vital Signs Pulse BP 11/12/17 09:28 82 118/59 L 11/12/17 09:26 118/59 L 11/12/17 09:22 88 118/59 L Intake and Output (Last 8hrs): Intake & Output 11/11/17 11/12/17 11/12/17 22:59 06:59 14:59 Intake Total 920 30 Output Total 500 450 Balance 420 -420 Weight 72.575 kg 74.435 kg Intake: IV 40 0 Left Antecubital 10 0 Left Hand 10 0 Right Hand 10 0 Right Wrist 10 0 Oral 880 30 Tube Feeding 0 TPN/PPN 0 Blood Product 0 Lipid 0 Albumin 0 Other 0 Output: Urine 500 450 Urine, Voided 500 450 Stool 0 Urine/Stool Mix 0 Emesis 0 Oral Regurgitation 0 Other 0 Other: # Voids Urine, Voided 0 # Bowel Movements 0 0 - Physical Exam Head: Positive for: Atraumatic, Normocephalic Pupils: Positive for: PERRL. Negative for: Non-Reactive, Pinpoint Extroacular Muscles: Positive for: EOMI. Negative for: Gaze Palsy, Entrapment Conjunctiva: Positive for: Normal. Negative for: Injected, Icteric Mouth: Positive for: Moist Mucous Membranes, Normal Lips, Normal Tounge Nose (External): Positive for: Atraumatic. Negative for: Abrasion, Laceration Nose (Internal): Positive for: Normal Inspection, No Active Bleeding. Negative for: Epistaxis Neck: Positive for: Normal Range of Motion. Negative for: JVD Respiratory/Chest: Positive for: Clear to Auscultation, Good Air Exchange, Rales (faint bibasilar rales). Negative for: Respiratory Distress, Accessory Muscle Use, Wheezes, Decreased Breath Sounds, Retracting, Rhonchi Cardiovascular: Positive for: Regular Rate and Rhythm, Normal S1, S2. Negative for: Murmurs, Irregular Rhythm, Tachycardic, Bradycardic Abdomen: Positive for: Normal Bowel Sounds. Negative for: Tenderness, Distention, Peritoneal Signs, Feeding Tubes Upper Extremity: Positive for: Normal Inspection, Normal ROM, NORMAL PULSES. Negative for: Cyanosis, Edema, Tenderness, Swelling, Erythema, Deformity Lower Extremity: Positive for: Normal Inspection, NORMAL PULSES, Normal ROM. Negative for: Edema, CALF TENDERNESS, Cyanosis, Tenderness, Swelling, Erythema, Deformity Neurological: Positive for: GCS=15, Speech Normal, Motor Func Grossly Intact, Normal Sensory Function, Other (awake and alert, moving all extremities spontaneously, following all commands appropriately) Skin: Positive for: Warm, Dry, Normal Color. Negative for: Rashes Psychiatric: Positive for: Alert, Normal Affect, Normal Mood. Negative for: Oriented x 3 (oriented to self and partially to location (knows in a hospital, not which one), can recall some recent events of hospitalization (i.e. emesis episode, chest pain on presentation)), Anxious, Agitated - Medications Active Medications: Active Medications Generic Name Dose Route Start Last Admin Trade Name Freq PRN Reason Stop Dose Admin Aspirin 81 mg 11/12/17 10:11/12/17 09:27 Aspirin Chewable PO 81 mg DAILY JORDON Administration Atorvastatin Calcium 20 mg 11/11/17 17:00 11/11/17 17:19 Lipitor PO 20 mg DIN JORDON Administration Clopidogrel Bisulfate 75 mg 11/12/17 10:00 11/12/17 09:27 Plavix PO 75 mg DAILY JORDON Administration Furosemide 40 mg 11/12/17 22:00 Lasix IVP Q12 JORDON Glimepiride 2 mg 11/12/17 10:00 11/12/17 09:31 Amaryl PO 2 mg DAILY JORDON Administration Heparin Sodium/Sodium Chloride 25,000 units in 250 mls @ 8.932 mls/hr 10:15 11/12/17 11:35 Heparin 56535 Units/250ml 1/2 Normal Saline IV 11.82 units/kg/hr .Q24H JORDON 8.8 mls/hr Protocol Administration 12 UNITS/KG/HR Insulin Human Regular 0 units 11/11/17 16:30 11/12/17 09:19 Humulin R Low SC 1 units ACHS JORDON Administration Protocol Levofloxacin/Dextrose 750 mg 11/12/17 10:30 Levaquin 750mg IVPB Q48H JORDON Protocol Losartan Potassium 50 mg 11/12/17 10:00 11/12/17 09:22 Cozaar PO 50 mg DAILY JORDON Administration Metoprolol Succinate 25 mg 11/12/17 08:00 11/12/17 09:28 Toprol Xl PO 25 mg BRK JORDON Administration Ondansetron HCl 4 mg 11/11/17 17:03 Zofran Inj IVP Q6H PRN Nausea/Vomiting Potassium Chloride 10 meq 11/12/17 08:00 11/12/17 09:23 Klor-Con 10 PO 10 meq BRK JORDON Administration Sucralfate 1 gm 11/11/17 16:00 11/12/17 05:28 Carafate Tab PO 1 gm 0600,1600 JORDON Administration - Patient Studies Lab Studies: Lab Studies 11/12/17 11/12/17 11/12/17 Range/Units 11:28 08:03 07:45 WBC (4.5-11.0) 10^3/ul RBC (3.5-6.1) 10^6/uL Hgb (12.0-16.0) g/dL Hct (36.0-48.0) % MCV (80.0-105.0) fl MCH (25.0-35.0) pg MCHC (31.0-37.0) g/dl RDW (11.5-14.5) % Plt Count (120.0-450.0) 10^3/uL MPV (7.0-11.0) fl Gran % (50.0-68.0) % Lymph % (Auto) (22.0-35.0) % Carroll % (Auto) (1.0-6.0) % Eos % (Auto) (1.5-5.0) % Baso % (Auto) (0.0-3.0) % Gran # (1.4-6.5) Lymph # (Auto) (1.2-3.4) Carroll # (Auto) (0.1-0.6) Eos # (Auto) (0.0-0.7) Baso # (Auto) (0.0-2.0) K/mm3 PT 13.8 H (9.4-12.5) SECONDS INR 1.20 H (0.93-1.08) pCO2 (35-45) mm/Hg pO2 (80-100) mm/Hg HCO3 (21-28) mmol/L ABG pH (7.35-7.45) ABG Total CO2 (22-28) mmol.L ABG O2 Saturation (95-98) % ABG O2 Content (15-23) ML/dl ABG Base Excess (-2.0-3.0) mmol/L ABG Hemoglobin (11.7-17.4) g/dL ABG Carboxyhemoglobin (0.5-1.5) % POC ABG HHb (Measured) (0-5) % ABG Methemoglobin (0.0-3.0) % ABG O2 Capacity (16-24) mL/dl Hgb O2 Saturation (95.0-98.0) % FiO2 % Sodium (132-148) mmol/L Potassium (3.6-5.0) mmol/L Chloride (98-107) mmol/L Carbon Dioxide (21-33) mmol/L Anion Gap (10-20) BUN (7-21) mg/dL Creatinine (0.7-1.2) mg/dl Est GFR ( Amer) Est GFR (Non-Af Amer) POC Glucose (mg/dL) 234 H 182 H (65-110) mg/dL Random Glucose (70-110) mg/dL Calcium (8.4-10.5) mg/dL Phosphorus (2.5-4.5) mg/dL Magnesium (1.7-2.2) mg/dL Total Bilirubin (0.2-1.3) mg/dL AST (14-36) U/L ALT (7-56) U/L Alkaline Phosphatase (38-126) U/L Total Protein (5.8-8.3) g/dL Albumin (3.0-4.8) g/dL Globulin gm/dL Albumin/Globulin Ratio (1.1-1.8) 11/12/17 11/12/17 11/12/17 Range/Units 07:03 06:30 06:30 WBC (4.5-11.0) 10^3/ul RBC (3.5-6.1) 10^6/uL Hgb (12.0-16.0) g/dL Hct (36.0-48.0) % MCV (80.0-105.0) fl MCH (25.0-35.0) pg MCHC (31.0-37.0) g/dl RDW (11.5-14.5) % Plt Count (120.0-450.0) 10^3/uL MPV (7.0-11.0) fl Gran % (50.0-68.0) % Lymph % (Auto) (22.0-35.0) % Carroll % (Auto) (1.0-6.0) % Eos % (Auto) (1.5-5.0) % Baso % (Auto) (0.0-3.0) % Gran # (1.4-6.5) Lymph # (Auto) (1.2-3.4) Carroll # (Auto) (0.1-0.6) Eos # (Auto) (0.0-0.7) Baso # (Auto) (0.0-2.0) K/mm3 PT (9.4-12.5) SECONDS INR (0.93-1.08) pCO2 42 (35-45) mm/Hg pO2 223.0 H (80-100) mm/Hg HCO3 28.5 H (21-28) mmol/L ABG pH 7.44 (7.35-7.45) ABG Total CO2 29.8 H (22-28) mmol.L ABG O2 Saturation 100.3 H (95-98) % ABG O2 Content 14.2 L (15-23) ML/dl ABG Base Excess 3.9 H (-2.0-3.0) mmol/L ABG Hemoglobin 10.0 L (11.7-17.4) g/dL ABG Carboxyhemoglobin 1.9 H (0.5-1.5) % POC ABG HHb (Measured) -0.3 L (0-5) % ABG Methemoglobin 1.2 (0.0-3.0) % ABG O2 Capacity 14.2 L (16-24) mL/dl Hgb O2 Saturation 97.2 (95.0-98.0) % FiO2 100.0 % Sodium 142 (132-148) mmol/L Potassium 3.4 L (3.6-5.0) mmol/L Chloride 101 (98-107) mmol/L Carbon Dioxide 30 (21-33) mmol/L Anion Gap 15 (10-20) BUN 16 (7-21) mg/dL Creatinine 1.0 (0.7-1.2) mg/dl Est GFR ( Amer) > 60 Est GFR (Non-Af Amer) 53 POC Glucose (mg/dL) (65-110) mg/dL Random Glucose 192 H (70-110) mg/dL Calcium 8.5 (8.4-10.5) mg/dL Phosphorus 2.2 L (2.5-4.5) mg/dL Magnesium 1.8 (1.7-2.2) mg/dL Total Bilirubin 0.8 (0.2-1.3) mg/dL AST 105 H D (14-36) U/L ALT 40 (7-56) U/L Alkaline Phosphatase 98 (38-126) U/L Total Protein 6.5 (5.8-8.3) g/dL Albumin 3.3 (3.0-4.8) g/dL Globulin 3.2 gm/dL Albumin/Globulin Ratio 1.0 L (1.1-1.8) 11/12/17 11/11/17 11/11/17 Range/Units 06:30 22:31 21:24 WBC 18.0 H (4.5-11.0) 10^3/ul RBC 3.35 L (3.5-6.1) 10^6/uL Hgb 9.8 L (12.0-16.0) g/dL Hct 29.2 L (36.0-48.0) % MCV 87.2 (80.0-105.0) fl MCH 29.3 (25.0-35.0) pg MCHC 33.6 (31.0-37.0) g/dl RDW 13.7 (11.5-14.5) % Plt Count 241 (120.0-450.0) 10^3/uL MPV 9.9 (7.0-11.0) fl Gran % 82.5 H (50.0-68.0) % Lymph % (Auto) 8.5 L (22.0-35.0) % Carroll % (Auto) 8.3 H (1.0-6.0) % Eos % (Auto) 0.6 L (1.5-5.0) % Baso % (Auto) 0.1 (0.0-3.0) % Gran # 14.85 H (1.4-6.5) Lymph # (Auto) 1.5 (1.2-3.4) Carroll # (Auto) 1.5 H (0.1-0.6) Eos # (Auto) 0.1 (0.0-0.7) Baso # (Auto) 0.01 (0.0-2.0) K/mm3 PT (9.4-12.5) SECONDS INR (0.93-1.08) pCO2 37 (35-45) mm/Hg pO2 49.0 L (80-100) mm/Hg HCO3 27.6 (21-28) mmol/L ABG pH 7.48 H (7.35-7.45) ABG Total CO2 28.7 H (22-28) mmol.L ABG O2 Saturation 93.1 L (95-98) % ABG O2 Content 13.9 L (15-23) ML/dl ABG Base Excess 4.0 H (-2.0-3.0) mmol/L ABG Hemoglobin 11.0 L (11.7-17.4) g/dL ABG Carboxyhemoglobin 2.4 H (0.5-1.5) % POC ABG HHb (Measured) 6.7 H (0-5) % ABG Methemoglobin 0.8 (0.0-3.0) % ABG O2 Capacity 14.9 L (16-24) mL/dl Hgb O2 Saturation 90.2 L (95.0-98.0) % FiO2 44.0 % Sodium (132-148) mmol/L Potassium (3.6-5.0) mmol/L Chloride (98-107) mmol/L Carbon Dioxide (21-33) mmol/L Anion Gap (10-20) BUN (7-21) mg/dL Creatinine (0.7-1.2) mg/dl Est GFR ( Amer) Est GFR (Non-Af Amer) POC Glucose (mg/dL) 166 H (65-110) mg/dL Random Glucose (70-110) mg/dL Calcium (8.4-10.5) mg/dL Phosphorus (2.5-4.5) mg/dL Magnesium (1.7-2.2) mg/dL Total Bilirubin (0.2-1.3) mg/dL AST (14-36) U/L ALT (7-56) U/L Alkaline Phosphatase (38-126) U/L Total Protein (5.8-8.3) g/dL Albumin (3.0-4.8) g/dL Globulin gm/dL Albumin/Globulin Ratio (1.1-1.8) 11/11/17 Range/Units 16:34 WBC (4.5-11.0) 10^3/ul RBC (3.5-6.1) 10^6/uL Hgb (12.0-16.0) g/dL Hct (36.0-48.0) % MCV (80.0-105.0) fl MCH (25.0-35.0) pg MCHC (31.0-37.0) g/dl RDW (11.5-14.5) % Plt Count (120.0-450.0) 10^3/uL MPV (7.0-11.0) fl Gran % (50.0-68.0) % Lymph % (Auto) (22.0-35.0) % Carroll % (Auto) (1.0-6.0) % Eos % (Auto) (1.5-5.0) % Baso % (Auto) (0.0-3.0) % Gran # (1.4-6.5) Lymph # (Auto) (1.2-3.4) Carroll # (Auto) (0.1-0.6) Eos # (Auto) (0.0-0.7) Baso # (Auto) (0.0-2.0) K/mm3 PT (9.4-12.5) SECONDS INR (0.93-1.08) pCO2 (35-45) mm/Hg pO2 (80-100) mm/Hg HCO3 (21-28) mmol/L ABG pH (7.35-7.45) ABG Total CO2 (22-28) mmol.L ABG O2 Saturation (95-98) % ABG O2 Content (15-23) ML/dl ABG Base Excess (-2.0-3.0) mmol/L ABG Hemoglobin (11.7-17.4) g/dL ABG Carboxyhemoglobin (0.5-1.5) % POC ABG HHb (Measured) (0-5) % ABG Methemoglobin (0.0-3.0) % ABG O2 Capacity (16-24) mL/dl Hgb O2 Saturation (95.0-98.0) % FiO2 % Sodium (132-148) mmol/L Potassium (3.6-5.0) mmol/L Chloride (98-107) mmol/L Carbon Dioxide (21-33) mmol/L Anion Gap (10-20) BUN (7-21) mg/dL Creatinine (0.7-1.2) mg/dl Est GFR ( Amer) Est GFR (Non-Af Amer) POC Glucose (mg/dL) 206 H (65-110) mg/dL Random Glucose (70-110) mg/dL Calcium (8.4-10.5) mg/dL Phosphorus (2.5-4.5) mg/dL Magnesium (1.7-2.2) mg/dL Total Bilirubin (0.2-1.3) mg/dL AST (14-36) U/L ALT (7-56) U/L Alkaline Phosphatase (38-126) U/L Total Protein (5.8-8.3) g/dL Albumin (3.0-4.8) g/dL Globulin gm/dL Albumin/Globulin Ratio (1.1-1.8) Laboratory Results - last 24 hr 11/11/17 11/11/17 11/11/17 16:34 21:24 22:31 WBC RBC Hgb Hct MCV MCH MCHC RDW Plt Count MPV Gran % Lymph % (Auto) Carroll % (Auto) Eos % (Auto) Baso % (Auto) Gran # Lymph # (Auto) Carroll # (Auto) Eos # (Auto) Baso # (Auto) PT INR pCO2 37 pO2 49.0 L HCO3 27.6 ABG pH 7.48 H ABG Total CO2 28.7 H ABG O2 Saturation 93.1 L ABG O2 Content 13.9 L ABG Base Excess 4.0 H ABG Hemoglobin 11.0 L ABG Carboxyhemoglobin 2.4 H POC ABG HHb (Measured) 6.7 H ABG Methemoglobin 0.8 ABG O2 Capacity 14.9 L Hgb O2 Saturation 90.2 L FiO2 44.0 Sodium Potassium Chloride Carbon Dioxide Anion Gap BUN Creatinine Est GFR ( Amer) Est GFR (Non-Af Amer) POC Glucose (mg/dL) 206 H 166 H Random Glucose Calcium Phosphorus Magnesium Total Bilirubin AST ALT Alkaline Phosphatase Total Protein Albumin Globulin Albumin/Globulin Ratio 11/12/17 11/12/17 11/12/17 06:30 06:30 06:30 WBC 18.0 H RBC 3.35 L Hgb 9.8 L Hct 29.2 L MCV 87.2 MCH 29.3 MCHC 33.6 RDW 13.7 Plt Count 241 MPV 9.9 Gran % 82.5 H Lymph % (Auto) 8.5 L Carroll % (Auto) 8.3 H Eos % (Auto) 0.6 L Baso % (Auto) 0.1 Gran # 14.85 H Lymph # (Auto) 1.5 Carroll # (Auto) 1.5 H Eos # (Auto) 0.1 Baso # (Auto) 0.01 PT INR pCO2 pO2 HCO3 ABG pH ABG Total CO2 ABG O2 Saturation ABG O2 Content ABG Base Excess ABG Hemoglobin ABG Carboxyhemoglobin POC ABG HHb (Measured) ABG Methemoglobin ABG O2 Capacity Hgb O2 Saturation FiO2 Sodium 142 Potassium 3.4 L Chloride 101 Carbon Dioxide 30 Anion Gap 15 BUN 16 Creatinine 1.0 Est GFR ( Amer) > 60 Est GFR (Non-Af Amer) 53 POC Glucose (mg/dL) Random Glucose 192 H Calcium 8.5 Phosphorus 2.2 L Magnesium 1.8 Total Bilirubin 0.8 AST 105 H D ALT 40 Alkaline Phosphatase 98 Total Protein 6.5 Albumin 3.3 Globulin 3.2 Albumin/Globulin Ratio 1.0 L 11/12/17 11/12/17 11/12/17 07:03 07:45 08:03 WBC RBC Hgb Hct MCV MCH MCHC RDW Plt Count MPV Gran % Lymph % (Auto) Carroll % (Auto) Eos % (Auto) Baso % (Auto) Gran # Lymph # (Auto) Carroll # (Auto) Eos # (Auto) Baso # (Auto) PT 13.8 H INR 1.20 H pCO2 42 pO2 223.0 H HCO3 28.5 H ABG pH 7.44 ABG Total CO2 29.8 H ABG O2 Saturation 100.3 H ABG O2 Content 14.2 L ABG Base Excess 3.9 H ABG Hemoglobin 10.0 L ABG Carboxyhemoglobin 1.9 H POC ABG HHb (Measured) -0.3 L ABG Methemoglobin 1.2 ABG O2 Capacity 14.2 L Hgb O2 Saturation 97.2 FiO2 100.0 Sodium Potassium Chloride Carbon Dioxide Anion Gap BUN Creatinine Est GFR ( Amer) Est GFR (Non-Af Amer) POC Glucose (mg/dL) 182 H Random Glucose Calcium Phosphorus Magnesium Total Bilirubin AST ALT Alkaline Phosphatase Total Protein Albumin Globulin Albumin/Globulin Ratio 11/12/17 11:28 WBC RBC Hgb Hct MCV MCH MCHC RDW Plt Count MPV Gran % Lymph % (Auto) Carroll % (Auto) Eos % (Auto) Baso % (Auto) Gran # Lymph # (Auto) Carroll # (Auto) Eos # (Auto) Baso # (Auto) PT INR pCO2 pO2 HCO3 ABG pH ABG Total CO2 ABG O2 Saturation ABG O2 Content ABG Base Excess ABG Hemoglobin ABG Carboxyhemoglobin POC ABG HHb (Measured) ABG Methemoglobin ABG O2 Capacity Hgb O2 Saturation FiO2 Sodium Potassium Chloride Carbon Dioxide Anion Gap BUN Creatinine Est GFR ( Amer) Est GFR (Non-Af Amer) POC Glucose (mg/dL) 234 H Random Glucose Calcium Phosphorus Magnesium Total Bilirubin AST ALT Alkaline Phosphatase Total Protein Albumin Globulin Albumin/Globulin Ratio EKG/Cardiology Studies: Cardiology / EKG Studies 11/11/17 20:54 EKG [ELECTROCARDIOGRAM] Stat Comment: Had a cardiac stent 2 ava ago Reason For Exam: pt is desaturating Fingerstick Blood Sugar Results: 182 Review of Systems - Review of Systems Systems not reviewed;Unavailable: Dementia Assessment/Plan - Assessment and Plan (Free Text) Assessment: This is an 82 yo AA F with PMH of HTN, DM2, and dementia who presented for chest pain and was reported to have ST-elevations on EKG in field. She was found to have ST elevations consistent with an WA, and is now s/p cardiac cath with 1x HEVER placement in the LAD. Due to O2 desaturations and EKG findings, she will remain in ICU, has been started on heparin drip and BID IV Lasix as per Cardio. Plan: Neuro: -awake and alert, only partially oriented (self and partial location) but likely 2/2 longstanding dementia -maintain normothermia -High fall risk, maintain aspiration precautions Cardio: -s/p STEMI, EKG on admit notable for ST elevations + q waves in V1-4, and ST depressions in II, III, and aVF, trop 0.10; repeat EKG concerning so will likely need repeat Cath Wednesday (11/15/17) as per Cardio -s/p cardiac cath, 1x HEVER in LAD -continue dual anti-platelets (ASA and plavix), Beta jairo, statin, ALLEGRA- inhibitor -As per Cardio, started on heparin drip and Lasix 40mg IV BID -Lipid panel and TSH wnl, A1c elevated at 7.5 -Echo notable for EF 32.8%, concentric LVH, apical & acacia-septal hypokinesis, mild MR, moderate TR, moderate-severe pulm HTN -Cardio following, appreciate all recs Pulm: -desatted to low 80's overnight, paO2 on ABG 49; corrected with 100% non- rebreather overnight, continue supplemental O2 as needed with goal SaO2 > 90 % and SaO2 >100 -supplemental O2 as needed -CXR on admit reviewed, notable for cardiomegaly + mild pulm venous congestion, small left pleural effusion vs inferolateral pleural parenchymal thickening; CXR today read as worsening pulm edema, Lasix IV 20mg x1 given overnight, as per Cardio increased to 40mg IV BID GI: -Heart-healthy diet -no further emesis reported -continue carafate and PRN Zofran -no GI ppx s/p cardiac cath as per Cardio -isolated AST elevation likely 2/2 STEMI, downtrending x2 Renal: -making urine -replete electrolytes as needed; K repleted today -Cr stable post-cath at 0.8 Heme: -Hgb 9.8 -SCDs for DVT ppx -no indication for transfusion at this time ID: -afebrile, but increasing leukocytosis (12.1 -> 14.3 - 17.7 ->18) concerning, less likely stress rxn from WA or s/p cath -no new infiltrates on CXR, no clear source suggestive of infection -procal, blood, and urine cx ordered -empirically covering with Levaquin 750mg IVPB daily for now Dispo: to remain in the ICU pending Cardiac Cath Wednesday as per Cardio, now on Heparin drip, pending culture results and procal FEN: HHD Access: Peripheral IVs Consults: Cardio Ppx: no GI ppx s/p cath, Heparin drip covers for DVT Patient seen, reviewed, and examined with attending, Dr. Price <Ronnie Price - Last Filed: 11/12/17 16:01> CCU Objective - Vital Signs / Intake & Output Vital Signs (Last 4 hours): Vital Signs Temp 11/12/17 12:00 98.6 F Intake and Output (Last 8hrs): Intake & Output 11/12/17 11/12/17 11/12/17 06:59 14:59 22:59 Intake Total 30 50 Output Total 450 Balance -420 50 Weight 164 lb 1.6 oz Intake: IV 0 50 Left Antecubital 0 Left Hand 0 Right Hand 0 Right Wrist 0 Oral 30 Tube Feeding 0 TPN/PPN 0 Blood Product 0 Lipid 0 Albumin 0 Other 0 Output: Urine 450 Urine, Voided 450 Stool 0 Urine/Stool Mix 0 Emesis 0 Oral Regurgitation 0 Other 0 Other: # Voids Urine, Voided 0 # Bowel Movements 0 - Medications Active Medications: Active Medications Generic Name Dose Route Start Last Admin Trade Name Freq PRN Reason Stop Dose Admin Aspirin 81 mg 11/12/17 10:00 11/12/17 09:27 Aspirin Chewable PO 81 mg DAILY JORDON Administration Atorvastatin Calcium 20 mg 11/11/17 17:00 11/11/17 17:19 Lipitor PO 20 mg DIN JORDON Administration Clopidogrel Bisulfate 75 mg 11/12/17 10:00 11/12/17 09:27 Plavix PO 75 mg DAILY JORDON Administration Furosemide 40 mg 11/12/17 22:00 Lasix IVP Q12 JORDON Glimepiride 2 mg 11/12/17 10:00 11/12/17 09:31 Amaryl PO 2 mg DAILY JORDON Administration Heparin Sodium/Sodium Chloride 25,000 units in 250 mls @ 8.932 mls/hr 10:15 11/12/17 11:35 Heparin 65597 Units/250ml 1/2 Normal Saline IV 11.82 units/kg/hr .Q24H JORDON 8.798 mls/hr Protocol Titration 12 UNITS/KG/HR Insulin Human Regular 0 units 11/11/17 16:30 11/12/17 12:39 Humulin R Low SC 2 units ACHS JORDON Administration Protocol Levofloxacin/Dextrose 750 mg 11/12/17 10:30 11/12/17 12:47 Levaquin 750mg IVPB 750 mg Q48H JORDON Administration Protocol Losartan Potassium 50 mg 11/12/17 10:00 11/12/17 09:22 Cozaar PO 50 mg DAILY JORDON Administration Metoprolol Succinate 25 mg 11/12/17 08:00 11/12/17 09:28 Toprol Xl PO 25 mg BRK JORDON Administration Ondansetron HCl 4 mg 11/11/17 17:03 Zofran Inj IVP Q6H PRN Nausea/Vomiting Potassium Chloride 10 meq 11/12/17 08:00 11/12/17 09:23 Klor-Con 10 PO 10 meq BRK JORDON Administration Sucralfate 1 gm 11/11/17 16:00 11/12/17 05:28 Carafate Tab PO 1 gm 0600,1600 JORDON Administration - Patient Studies Lab Studies: Lab Studies 11/12/17 11/12/17 11/12/17 Range/Units 11:28 08:03 07:45 WBC (4.5-11.0) 10^3/ul RBC (3.5-6.1) 10^6/uL Hgb (12.0-16.0) g/dL Hct (36.0-48.0) % MCV (80.0-105.0) fl MCH (25.0-35.0) pg MCHC (31.0-37.0) g/dl RDW (11.5-14.5) % Plt Count (120.0-450.0) 10^3/uL MPV (7.0-11.0) fl Gran % (50.0-68.0) % Lymph % (Auto) (22.0-35.0) % Carroll % (Auto) (1.0-6.0) % Eos % (Auto) (1.5-5.0) % Baso % (Auto) (0.0-3.0) % Gran # (1.4-6.5) Lymph # (Auto) (1.2-3.4) Carroll # (Auto) (0.1-0.6) Eos # (Auto) (0.0-0.7) Baso # (Auto) (0.0-2.0) K/mm3 PT 13.8 H (9.4-12.5) SECONDS INR 1.20 H (0.93-1.08) pCO2 (35-45) mm/Hg pO2 (80-100) mm/Hg HCO3 (21-28) mmol/L ABG pH (7.35-7.45) ABG Total CO2 (22-28) mmol.L ABG O2 Saturation (95-98) % ABG O2 Content (15-23) ML/dl ABG Base Excess (-2.0-3.0) mmol/L ABG Hemoglobin (11.7-17.4) g/dL ABG Carboxyhemoglobin (0.5-1.5) % POC ABG HHb (Measured) (0-5) % ABG Methemoglobin (0.0-3.0) % ABG O2 Capacity (16-24) mL/dl Hgb O2 Saturation (95.0-98.0) % FiO2 % Sodium (132-148) mmol/L Potassium (3.6-5.0) mmol/L Chloride (98-107) mmol/L Carbon Dioxide (21-33) mmol/L Anion Gap (10-20) BUN (7-21) mg/dL Creatinine (0.7-1.2) mg/dl Est GFR ( Amer) Est GFR (Non-Af Amer) POC Glucose (mg/dL) 234 H 182 H (65-110) mg/dL Random Glucose (70-110) mg/dL Calcium (8.4-10.5) mg/dL Phosphorus (2.5-4.5) mg/dL Magnesium (1.7-2.2) mg/dL Total Bilirubin (0.2-1.3) mg/dL AST (14-36) U/L ALT (7-56) U/L Alkaline Phosphatase (38-126) U/L Total Protein (5.8-8.3) g/dL Albumin (3.0-4.8) g/dL Globulin gm/dL Albumin/Globulin Ratio (1.1-1.8) 11/12/17 11/12/17 11/12/17 Range/Units 07:03 06:30 06:30 WBC (4.5-11.0) 10^3/ul RBC (3.5-6.1) 10^6/uL Hgb (12.0-16.0) g/dL Hct (36.0-48.0) % MCV (80.0-105.0) fl MCH (25.0-35.0) pg MCHC (31.0-37.0) g/dl RDW (11.5-14.5) % Plt Count (120.0-450.0) 10^3/uL MPV (7.0-11.0) fl Gran % (50.0-68.0) % Lymph % (Auto) (22.0-35.0) % Carroll % (Auto) (1.0-6.0) % Eos % (Auto) (1.5-5.0) % Baso % (Auto) (0.0-3.0) % Gran # (1.4-6.5) Lymph # (Auto) (1.2-3.4) Carroll # (Auto) (0.1-0.6) Eos # (Auto) (0.0-0.7) Baso # (Auto) (0.0-2.0) K/mm3 PT (9.4-12.5) SECONDS INR (0.93-1.08) pCO2 42 (35-45) mm/Hg pO2 223.0 H (80-100) mm/Hg HCO3 28.5 H (21-28) mmol/L ABG pH 7.44 (7.35-7.45) ABG Total CO2 29.8 H (22-28) mmol.L ABG O2 Saturation 100.3 H (95-98) % ABG O2 Content 14.2 L (15-23) ML/dl ABG Base Excess 3.9 H (-2.0-3.0) mmol/L ABG Hemoglobin 10.0 L (11.7-17.4) g/dL ABG Carboxyhemoglobin 1.9 H (0.5-1.5) % POC ABG HHb (Measured) -0.3 L (0-5) % ABG Methemoglobin 1.2 (0.0-3.0) % ABG O2 Capacity 14.2 L (16-24) mL/dl Hgb O2 Saturation 97.2 (95.0-98.0) % FiO2 100.0 % Sodium 142 (132-148) mmol/L Potassium 3.4 L (3.6-5.0) mmol/L Chloride 101 (98-107) mmol/L Carbon Dioxide 30 (21-33) mmol/L Anion Gap 15 (10-20) BUN 16 (7-21) mg/dL Creatinine 1.0 (0.7-1.2) mg/dl Est GFR ( Amer) > 60 Est GFR (Non-Af Amer) 53 POC Glucose (mg/dL) (65-110) mg/dL Random Glucose 192 H (70-110) mg/dL Calcium 8.5 (8.4-10.5) mg/dL Phosphorus 2.2 L (2.5-4.5) mg/dL Magnesium 1.8 (1.7-2.2) mg/dL Total Bilirubin 0.8 (0.2-1.3) mg/dL AST 105 H D (14-36) U/L ALT 40 (7-56) U/L Alkaline Phosphatase 98 (38-126) U/L Total Protein 6.5 (5.8-8.3) g/dL Albumin 3.3 (3.0-4.8) g/dL Globulin 3.2 gm/dL Albumin/Globulin Ratio 1.0 L (1.1-1.8) 11/12/17 11/11/17 11/11/17 Range/Units 06:30 22:31 21:24 WBC 18.0 H (4.5-11.0) 10^3/ul RBC 3.35 L (3.5-6.1) 10^6/uL Hgb 9.8 L (12.0-16.0) g/dL Hct 29.2 L (36.0-48.0) % MCV 87.2 (80.0-105.0) fl MCH 29.3 (25.0-35.0) pg MCHC 33.6 (31.0-37.0) g/dl RDW 13.7 (11.5-14.5) % Plt Count 241 (120.0-450.0) 10^3/uL MPV 9.9 (7.0-11.0) fl Gran % 82.5 H (50.0-68.0) % Lymph % (Auto) 8.5 L (22.0-35.0) % Carroll % (Auto) 8.3 H (1.0-6.0) % Eos % (Auto) 0.6 L (1.5-5.0) % Baso % (Auto) 0.1 (0.0-3.0) % Gran # 14.85 H (1.4-6.5) Lymph # (Auto) 1.5 (1.2-3.4) Carroll # (Auto) 1.5 H (0.1-0.6) Eos # (Auto) 0.1 (0.0-0.7) Baso # (Auto) 0.01 (0.0-2.0) K/mm3 PT (9.4-12.5) SECONDS INR (0.93-1.08) pCO2 37 (35-45) mm/Hg pO2 49.0 L (80-100) mm/Hg HCO3 27.6 (21-28) mmol/L ABG pH 7.48 H (7.35-7.45) ABG Total CO2 28.7 H (22-28) mmol.L ABG O2 Saturation 93.1 L (95-98) % ABG O2 Content 13.9 L (15-23) ML/dl ABG Base Excess 4.0 H (-2.0-3.0) mmol/L ABG Hemoglobin 11.0 L (11.7-17.4) g/dL ABG Carboxyhemoglobin 2.4 H (0.5-1.5) % POC ABG HHb (Measured) 6.7 H (0-5) % ABG Methemoglobin 0.8 (0.0-3.0) % ABG O2 Capacity 14.9 L (16-24) mL/dl Hgb O2 Saturation 90.2 L (95.0-98.0) % FiO2 44.0 % Sodium (132-148) mmol/L Potassium (3.6-5.0) mmol/L Chloride (98-107) mmol/L Carbon Dioxide (21-33) mmol/L Anion Gap (10-20) BUN (7-21) mg/dL Creatinine (0.7-1.2) mg/dl Est GFR ( Amer) Est GFR (Non-Af Amer) POC Glucose (mg/dL) 166 H (65-110) mg/dL Random Glucose (70-110) mg/dL Calcium (8.4-10.5) mg/dL Phosphorus (2.5-4.5) mg/dL Magnesium (1.7-2.2) mg/dL Total Bilirubin (0.2-1.3) mg/dL AST (14-36) U/L ALT (7-56) U/L Alkaline Phosphatase (38-126) U/L Total Protein (5.8-8.3) g/dL Albumin (3.0-4.8) g/dL Globulin gm/dL Albumin/Globulin Ratio (1.1-1.8) // Range/Units 16:34 WBC (4.5-11.0) 10^3/ul RBC (3.5-6.1) 10^6/uL Hgb (12.0-16.0) g/dL Hct (36.0-48.0) % MCV (80.0-105.0) fl MCH (25.0-35.0) pg MCHC (31.0-37.0) g/dl RDW (11.5-14.5) % Plt Count (120.0-450.0) 10^3/uL MPV (7.0-11.0) fl Gran % (50.0-68.0) % Lymph % (Auto) (22.0-35.0) % Carroll % (Auto) (1.0-6.0) % Eos % (Auto) (1.5-5.0) % Baso % (Auto) (0.0-3.0) % Gran # (1.4-6.5) Lymph # (Auto) (1.2-3.4) Carroll # (Auto) (0.1-0.6) Eos # (Auto) (0.0-0.7) Baso # (Auto) (0.0-2.0) K/mm3 PT (9.4-12.5) SECONDS INR (0.93-1.08) pCO2 (35-45) mm/Hg pO2 (80-100) mm/Hg HCO3 (21-28) mmol/L ABG pH (7.35-7.45) ABG Total CO2 (22-28) mmol.L ABG O2 Saturation (95-98) % ABG O2 Content (15-23) ML/dl ABG Base Excess (-2.0-3.0) mmol/L ABG Hemoglobin (11.7-17.4) g/dL ABG Carboxyhemoglobin (0.5-1.5) % POC ABG HHb (Measured) (0-5) % ABG Methemoglobin (0.0-3.0) % ABG O2 Capacity (16-24) mL/dl Hgb O2 Saturation (95.0-98.0) % FiO2 % Sodium (132-148) mmol/L Potassium (3.6-5.0) mmol/L Chloride (98-107) mmol/L Carbon Dioxide (21-33) mmol/L Anion Gap (10-20) BUN (7-21) mg/dL Creatinine (0.7-1.2) mg/dl Est GFR ( Amer) Est GFR (Non-Af Amer) POC Glucose (mg/dL) 206 H (65-110) mg/dL Random Glucose (70-110) mg/dL Calcium (8.4-10.5) mg/dL Phosphorus (2.5-4.5) mg/dL Magnesium (1.7-2.2) mg/dL Total Bilirubin (0.2-1.3) mg/dL AST (14-36) U/L ALT (7-56) U/L Alkaline Phosphatase (38-126) U/L Total Protein (5.8-8.3) g/dL Albumin (3.0-4.8) g/dL Globulin gm/dL Albumin/Globulin Ratio (1.1-1.8) Laboratory Results - last 24 hr 11/11/17 11/11/17 11/11/17 16:34 21:24 22:31 WBC RBC Hgb Hct MCV MCH MCHC RDW Plt Count MPV Gran % Lymph % (Auto) Carroll % (Auto) Eos % (Auto) Baso % (Auto) Gran # Lymph # (Auto) Carroll # (Auto) Eos # (Auto) Baso # (Auto) PT INR pCO2 37 pO2 49.0 L HCO3 27.6 ABG pH 7.48 H ABG Total CO2 28.7 H ABG O2 Saturation 93.1 L ABG O2 Content 13.9 L ABG Base Excess 4.0 H ABG Hemoglobin 11.0 L ABG Carboxyhemoglobin 2.4 H POC ABG HHb (Measured) 6.7 H ABG Methemoglobin 0.8 ABG O2 Capacity 14.9 L Hgb O2 Saturation 90.2 L FiO2 44.0 Sodium Potassium Chloride Carbon Dioxide Anion Gap BUN Creatinine Est GFR ( Amer) Est GFR (Non-Af Amer) POC Glucose (mg/dL) 206 H 166 H Random Glucose Calcium Phosphorus Magnesium Total Bilirubin AST ALT Alkaline Phosphatase Total Protein Albumin Globulin Albumin/Globulin Ratio 11/12/17 11/12/17 11/12/17 06:30 06:30 06:30 WBC 18.0 H RBC 3.35 L Hgb 9.8 L Hct 29.2 L MCV 87.2 MCH 29.3 MCHC 33.6 RDW 13.7 Plt Count 241 MPV 9.9 Gran % 82.5 H Lymph % (Auto) 8.5 L Carroll % (Auto) 8.3 H Eos % (Auto) 0.6 L Baso % (Auto) 0.1 Gran # 14.85 H Lymph # (Auto) 1.5 Carroll # (Auto) 1.5 H Eos # (Auto) 0.1 Baso # (Auto) 0.01 PT INR pCO2 pO2 HCO3 ABG pH ABG Total CO2 ABG O2 Saturation ABG O2 Content ABG Base Excess ABG Hemoglobin ABG Carboxyhemoglobin POC ABG HHb (Measured) ABG Methemoglobin ABG O2 Capacity Hgb O2 Saturation FiO2 Sodium 142 Potassium 3.4 L Chloride 101 Carbon Dioxide 30 Anion Gap 15 BUN 16 Creatinine 1.0 Est GFR ( Amer) > 60 Est GFR (Non-Af Amer) 53 POC Glucose (mg/dL) Random Glucose 192 H Calcium 8.5 Phosphorus 2.2 L Magnesium 1.8 Total Bilirubin 0.8 AST 105 H D ALT 40 Alkaline Phosphatase 98 Total Protein 6.5 Albumin 3.3 Globulin 3.2 Albumin/Globulin Ratio 1.0 L 11/12/17 11/12/17 11/12/17 07:03 07:45 08:03 WBC RBC Hgb Hct MCV MCH MCHC RDW Plt Count MPV Gran % Lymph % (Auto) Carroll % (Auto) Eos % (Auto) Baso % (Auto) Gran # Lymph # (Auto) Carroll # (Auto) Eos # (Auto) Baso # (Auto) PT 13.8 H INR 1.20 H pCO2 42 pO2 223.0 H HCO3 28.5 H ABG pH 7.44 ABG Total CO2 29.8 H ABG O2 Saturation 100.3 H ABG O2 Content 14.2 L ABG Base Excess 3.9 H ABG Hemoglobin 10.0 L ABG Carboxyhemoglobin 1.9 H POC ABG HHb (Measured) -0.3 L ABG Methemoglobin 1.2 ABG O2 Capacity 14.2 L Hgb O2 Saturation 97.2 FiO2 100.0 Sodium Potassium Chloride Carbon Dioxide Anion Gap BUN Creatinine Est GFR ( Amer) Est GFR (Non-Af Amer) POC Glucose (mg/dL) 182 H Random Glucose Calcium Phosphorus Magnesium Total Bilirubin AST ALT Alkaline Phosphatase Total Protein Albumin Globulin Albumin/Globulin Ratio 11/12/17 11:28 WBC RBC Hgb Hct MCV MCH MCHC RDW Plt Count MPV Gran % Lymph % (Auto) Carroll % (Auto) Eos % (Auto) Baso % (Auto) Gran # Lymph # (Auto) Carroll # (Auto) Eos # (Auto) Baso # (Auto) PT INR pCO2 pO2 HCO3 ABG pH ABG Total CO2 ABG O2 Saturation ABG O2 Content ABG Base Excess ABG Hemoglobin ABG Carboxyhemoglobin POC ABG HHb (Measured) ABG Methemoglobin ABG O2 Capacity Hgb O2 Saturation FiO2 Sodium Potassium Chloride Carbon Dioxide Anion Gap BUN Creatinine Est GFR ( Amer) Est GFR (Non-Af Amer) POC Glucose (mg/dL) 234 H Random Glucose Calcium Phosphorus Magnesium Total Bilirubin AST ALT Alkaline Phosphatase Total Protein Albumin Globulin Albumin/Globulin Ratio EKG/Cardiology Studies: Cardiology / EKG Studies 11/11/17 20:54 EKG [ELECTROCARDIOGRAM] Stat Comment: Had a cardiac stent 2 ava ago Reason For Exam: pt is desaturating Attending/Attestation - Attestation I have personally seen and examined this patient.: Yes I have fully participated in the care of the patient.: Yes I have reviewed all pertinent clinical information: Yes Notes (Text): 11/12/17 15:58 82 yo female with ACS and s/p PCI who completed her integrillin drip yesterday. Overnight however had an episode of SOB, chest tightness and anterolateral ST depression. Lasix given, TAC started, DAP, bb continued. Continue ICU monitoring , cardiology service likely to cath on wednesday ccm time 40 min
[2017-11-12] MEDS: levoFLOXacin 750 mg in D5W 150 ML BAG IVPB SCH (12:47)
--- NOTE | 2017-11-12 13:00 | PN ---
DATE: 11/12/2017 CARDIOLOGY FOLLOWUP SUBJECTIVE: The patient with an episode of CHF, was transferred back to the unit today. She denies chest pain. This morning, the patient's breathing is much better. PHYSICAL EXAMINATION: VITAL SIGNS: Blood pressure IS 118/59, the heart rates in the 80s. NECK: Negative JVD. LUNGS: Without rales. HEART: Reveals S1, S2. EXTREMITIES: Without edema. LABORATORY DATA: BUN and creatinine are 15 and 1. Troponin was 0.10, glucose is 192. IMPRESSION: 1. Acute systolic congestive heart failure. 2. Ischemic dilated cardiomyopathy. 3. Status post anterior wall myocardial infarction. 4. Diabetes mellitus. 5. Diffuse coronary artery disease. PLAN: Given these findings, the patient's EKG changes are of concern. We will start the patient on heparin. If the patient is better in terms of her respiratory status, we may consider bringing her back to the quality assurance/r&d lab technician on Wednesday. Gregory Arteaga MD
--- NOTE | 2017-11-12 17:47 | PN ---
DATE: 11/12/2017 SUBJECTIVE: The patient is 82 years old, yesterday's event noted in the evening, the patient is desaturated. She was given extra dose of Lasix. She was on 100% nonrebreather. Her discharge to telemetry was held and readmitted in the ICU. PHYSICAL EXAMINATION GENERAL: Today, she looks comfortable. She is on 2 liters of nasal cannula. VITAL SIGNS: She is afebrile, pulse 82, respirations 27, blood pressure 118/59. LUNGS: Bilateral good airflow. No rhonchi or crackle. HEART: S1 and S2 audible. ABDOMEN: Soft, obese, nontender. No rebound. No guarding. NEUROLOGICAL: The patient is awake, alert, oriented, communicative. EXTREMITIES: Bilateral legs, +1 edema. LABORATORY DATA: WBC 18, hemoglobin 9.8, hematocrit 39.2, platelet of 241. PT 13.8, INR 1.20. Chemistry: Sodium 142, potassium 3.4, chloride 101, CO2 30, BUN 16, creatinine 1, blood sugar of 192. X-ray of chest shows worsening cardiogenic and pulmonary edema. ASSESSMENT: 1. Congestive heart failure with pulmonary edema. 2. Status post acute myocardial infarction. 3. Status post left anterior descending coronary artery angioplasty. 4. Cardiomyopathy with left ventricular ejection fraction low 40%. 5. Non-insulin dependent diabetes. 6. Hypertension. PLAN: We will continue the patient on current medication. Has been started on heparin by Dr. Arteaga. We will continue to diurese. She is on Lasix 40 every 12 hours. I will request for urinalysis. Pinpout the source of infection and leukocytosis. Jennie Gibbs MD
--- NOTE | 2017-11-12 19:03 | CARD ---
APPROVED REPORT EKG Measurement Heart [id number] <Conclusion> Poor data quality, interpretation may be adversely affected Normal sinus rhythm Left axis deviation Anteroseptal infarct, possibly acute T wave abnormality, consider lateral ischemia Prolonged QT ACUTE [place] Abnormal ECG
[2017-11-13 06:01] LABS: BASO # 0.02 K/mm3 (0.0-2.0); BASO % 0.1 % (0.0-3.0); EOS # 0.4 (0.0-0.7); EOS % 2.3 % (1.5-5.0); GRAN # 12.19 (1.4-6.5); GRAN % 76.3 % (50.0-68.0); HEMOGLOBIN 9.1 g/dL (12.0-16.0); LYMPH # 1.9 (1.2-3.4); LYMPH % 12.2 % (22.0-35.0); MEAN CELL VOLUME 87.7 fl (80.0-105.0); MEAN CORPUSCULAR HEMOGLOBIN 28.1 pg (25.0-35.0); MEAN PLATELET VOLUME 10.1 fl (7.0-11.0); MONO # 1.5 (0.1-0.6); MONO % 9.1 % (1.0-6.0); RBC 3.24 10^6/uL (3.5-6.1); RED CELL DISTRIBUTION WIDTH 13.3 % (11.5-14.5)
[2017-11-13 06:08] LABS: ALBUMIN 3.3 g/dL (3.0-4.8); CALCIUM 8.6 mg/dL (8.4-10.5)
[2017-11-13] MEDS: Insulin Reg-LOW-Coverage SC SCH ×4 (07:30→21:31)
--- NOTE | 2017-11-13 08:20 | PN ---
DATE: 11/13/2017 PRE CERTIFICATION SPECIALIST NOTE SUBJECTIVE: The patient is resting in bed with O2 via nasal cannula. She has no complaints of increased shortness of breath. No cough. No wheezing. No chest pain. The patient states that she is comfortable this morning. She is remaining in the ICU because of sudden onset of shortness of breath, felt to be in congestive heart failure and the patient is scheduled for recatheterization on Wednesday. PHYSICAL EXAMINATION: VITAL SIGNS: Note that her temperature is 98.2, pulse is 64, respirations of 17 and BP is 132/64, O2 saturation is 99%. HEENT: Head is atraumatic, normocephalic. Eyes are reactive to light. Ear, nose and throat seemed to be within normal limits. NECK: Supple. No JVD. No thyroid enlargement or lymph nodes. HEART: Has regular rate and rhythm. Normal S1, S2. LUNGS: Reveal good breath sounds bilaterally. ABDOMEN: Soft. Decreased bowel sounds. GENITALIA: Deferred. RECTAL: Deferred. MUSCULOSKELETAL: No joint deformities. EXTREMITIES: Reveal no significant lower extremity edema. NEUROLOGICAL: She seemed to be grossly intact. DATA: As far as her laboratories are concerned, her white count is 16, hemoglobin is 9.1 and hematocrit 28.7 with platelets of 270,000. The patient's sodium is 138, potassium 3.6, chloride 99, CO2 of 29 with a BUN of 22, creatinine of 1.1 and glucose of 161. IMPRESSION: As far as my impression, this patient has acute myocardial infarction with the code heart being called and the patient had stent placed in the coronary arteries. She had congestive heart failure with possible reoccurring ischemia. The patient has coronary artery disease, cardiomyopathy, diabetes, hypertension and anemia. PLAN: As far as our plan, we will continue with O2 via nasal cannula. The patient is scheduled for recatheterization by Dr. Arteaga on Wednesday and she is on aspirin, Carafate, Cozaar, IV heparin, Lasix, Levaquin, Plavix, Lipitor, Toprol and Zofran p.r.n. The patient will be followed closely in the Intensive Care Unit. Riley Cr MD [facility] # [id number]
[2017-11-13] MEDS: Potassium Chloride 10 mEq ER Tab PO SCH (08:37)
[2017-11-13] MEDS: Metoprolol Succinate 25 mg XL Tab PO SCH (08:38)
--- NOTE | 2017-11-13 14:19 | PN ---
DATE: 11/13/2017 SUBJECTIVE: The patient is 82 years old, seen and examined, lying in bed, seems to be comfortable. No chest pain. Gets short of breath on minimal exertion. PHYSICAL EXAMINATION: VITAL SIGNS: She is afebrile, pulse 56, respirations 18, blood pressure 112/49. LUNGS: Bilateral fair airflow. No rhonchi or crackle. HEART: S1 and S2 audible. ABDOMEN: Soft, nontender. No rebound. No guarding. NEUROLOGICAL: She is awake, alert, oriented, communicative. LABORATORY DATA: WBC 16, hemoglobin 9.1, hematocrit 28.4, platelet of 270,000. PTT 65.6. Chemistry: Sodium 138, potassium 3.6, chloride 99, CO2 of 29, BUN 22, creatinine 1.1, blood sugar of 153. ASSESSMENT AND PLAN: 1. Acute myocardial infarction, status post angioplasty for left anterior descending, status post code heart. 2. Congestive heart failure. 3. Ischemic dilated cardiomyopathy. 4. Anterior wall myocardial infarction. 5. Non-insulin dependent diabetes. 6. Diffuse coronary artery disease. 7. History of hypertension. 8. Hyperlipidemia. PLAN: Dr. Arteaga's input noted and appreciated. The patient has been started on heparin. There were some new EKG changes. We will monitor her respiratory status. She has been started on Lasix. We will follow up kidney, CMP closely and adjust dose of Lasix accordingly. Jennie Gibbs MD
--- NOTE | 2017-11-13 15:26 | PN ---
DATE: 11/13/[address] Gregory Arteaga. SUBJECTIVE: The patient denies any chest pain at this time. She is breathing comfortably. PHYSICAL EXAMINATION: VITAL SIGNS: Blood pressure 112/49, heart rate 56, temperature 98.2, respirations 15. HEENT: Pale conjunctivae. CHEST: Diminished breath sounds over the right base. HEART: S1, S2 regular. ABDOMEN: Soft. EXTREMITIES: No edema. Chest x-ray revealed cardiomegaly, moderate CHF with cephalization. LABORATORY DATA: Hemoglobin and hematocrit 9.1 and 28.4, white count 16, platelet count 170,000. The SMA-7 is within normal limits except for glucose 165 and BUN of 22. ASSESSMENT: 1. Status post acute anterior wall myocardial infarction and emergency percutaneous transluminal coronary angioplasty stenting to the left anterior descending. 2. Congestive heart failure with ejection fraction estimated at 40% at the time of coronary intervention with anteroapical akinesis. 3. Anemia. 4. Uncontrolled diabetes mellitus. RECOMMENDATIONS: Continue current aspirin 81 mg once a day, Cozaar 50 mg once a day, Lasix 40 mg intravenously twice a day, Plavix 75 mg once a day, Lipitor 20 mg once a day, Toprol-XL 25 mg once a day. May discontinue intravenous heparin. Jesus Manuel MD
[2017-11-14 06:10] LABS: ALBUMIN 3.3 g/dL (3.0-4.8); CALCIUM 9.2 mg/dL (8.4-10.5)
[2017-11-14 06:12] LABS: BASO # 0.02 K/mm3 (0.0-2.0); BASO % 0.1 % (0.0-3.0); EOS # 0.5 (0.0-0.7); EOS % 3.4 % (1.5-5.0); GRAN # 10.3 (1.4-6.5); GRAN % 74.8 % (50.0-68.0); HEMOGLOBIN 9.1 g/dL (12.0-16.0); LYMPH # 1.9 (1.2-3.4); LYMPH % 13.9 % (22.0-35.0); MEAN CELL VOLUME 87.4 fl (80.0-105.0); MONO # 1.1 (0.1-0.6); MONO % 7.8 % (1.0-6.0); RBC 3.25 10^6/uL (3.5-6.1); RED CELL DISTRIBUTION WIDTH 13.3 % (11.5-14.5); WHITE BLOOD COUNT 13.8 10^3/ul (4.5-11.0)
[2017-11-14] MEDS: Potassium Chloride 10 mEq ER Tab PO SCH (08:54)
[2017-11-14] MEDS: Insulin Reg-LOW-Coverage SC SCH ×4 (08:55→21:57)
[2017-11-14] MEDS: levoFLOXacin 750 mg in D5W 150 ML BAG IVPB SCH (08:56)
[2017-11-14] MEDS: Metoprolol Succinate 25 mg XL Tab PO SCH (08:57)
[2017-11-14] MEDS ORDERED: POLYETHYLENE GLYCOL 3350 17 GM/Dose PACKET PO ONE (09:14)
[2017-11-14 09:15] LABS: URINE APPEARANCE CLEAR (CLEAR); URINE BILIRUBIN NEGATIVE (NEGATIVE); URINE BLOOD NEGATIVE (NEGATIVE); URINE COLOR YELLOW (YELLOW); URINE GLUCOSE (UA) NEGATIVE (NEGATIVE); URINE LEUKOCYTE ESTERASE SMALL Leu/uL (NEGATIVE); URINE PROTEIN NEGATIVE mg/dL (<30 mg/dL)
[2017-11-14 09:29] LABS: URINE BACTERIA OCC (NEG); URINE RBC 0 - 2 /hpf (0-2); URINE WBC 0 - 2 /hpf (0-6)
--- NOTE | 2017-11-14 09:53 | PN ---
DATE: 11/14/2017 ALODIZE MACHINE OPERATOR NOTE SUBJECTIVE: The patient is resting in the chair, having breakfast. No complaints of shortness of breath, cough, wheezing, chest congestion. No chest pain. She is very comfortable. PHYSICAL EXAMINATION: VITAL SIGNS: Note that her temperature is 98.3, her pulse is 69, respirations of 26 and her BP is 133/63. SKIN: Warm and dry. HEENT: Head, atraumatic and normocephalic. Eyes, reactive to light. Ears, nose and throat seemed to be within normal limits. NECK: Supple. No JVD. No thyroid enlargement or lymph nodes. HEART: Has regular rate and rhythm. Normal S1, S2. LUNGS: Reveal good breath sounds bilaterally. ABDOMEN: Soft. Decreased bowel sounds. GENITALIA: Deferred. RECTAL: Deferred. MUSCULOSKELETAL: No joint deformities. EXTREMITIES: Reveal trace lower extremity edema. NEUROLOGIC: She seemed to be grossly intact. DATA: As far as her laboratories are concerned, her white count is 13.8, hemoglobin is 9.1, hematocrit 28.4 with platelets of 302,000. Sodium is 139, potassium 3.7, chloride 99, CO2 of 30, BUN of 27, creatinine of 1.1 and glucose of 142. IMPRESSION: The patient had acute myocardial infarction, was called code heart and cardiac stents were placed. The patient developed congestive heart failure with possible reoccurring ischemia end note that the patient has a history of coronary artery disease, cardiomyopathy, diabetes, hypertension and anemia. PLAN: The plan is to schedule the patient for recatheterization tomorrow by Dr. Arteaga. The patient is on O2 via nasal cannula. She continues on aspirin, Carafate, Cozaar, IV heparin, Lasix, Levaquin, Plavix, Lipitor, Toprol and Zofran which is p.r.n. We will continue to treat aggressively along with the other consultants and the primary care doctor. Riley Cr MD
[2017-11-14] MEDS: Heparin25000 units/250ml 1/2NS 25,000 UNITS/250 ML BAG IV SCH (11:00)
--- NOTE | 2017-11-14 13:54 | PN ---
DATE: 11/14/2017 SUBJECTIVE: The patient has no complaints of any chest pain. No shortness of breath. She has no headaches or dizziness. OBJECTIVE: VITAL SIGNS: Temperature is 98.3, pulse of 68, blood pressure 141/72, respirations 20. GENERAL: The patient is lying in bed, flat, comfortable. HEENT: No oral lesion. Anicteric sclerae. Moist mucosa. NECK: No JVD, adenopathy, or thyromegaly. CARDIOVASCULAR: S1 and S2, regular. No murmurs, rubs, or gallops. LUNGS: Clear to auscultation bilaterally. No wheeze, rales, or rhonchi. ABDOMEN: Bowel sounds are positive. Soft, nontender and nondistended. EXTREMITIES: No cyanosis, clubbing or edema. LABORATORY DATA: White count of 13.8, hemoglobin 9.1, creatinine is 1.1. ASSESSMENT: 1. Acute myocardial infarction with percutaneous coronary intervention to the left anterior descending artery. 2. Dilated ischemic cardiomyopathy. 3. Diabetes type 2. 4. Coronary artery disease. 5. Hypertension. 6. Dyslipidemia. PLAN: The patient is currently on Amaryl for her diabetes. She is going to continue with aspirin. She is on losartan for her hypertension. She is on Lasix twice a day for cardiomyopathy. She is receiving Lipitor for dyslipidemia. She is on Plavix for her stent. She is going to continue with metoprolol for coronary artery disease. She is on heart-healthy diet. She is being followed by Dr. Arteaga. She is going to be repeat blood work again tomorrow. Jacinto Watts MD
--- NOTE | 2017-11-14 16:32 | PN ---
DATE: 11/14/2017 SUBJECTIVE: The patient denies chest pain. She is comfortable on nasal O2. PHYSICAL EXAMINATION: VITAL SIGNS: Blood pressure 141/72, heart rate 68, respirations 26, and temperature 98.3. HEENT: Pale conjunctivae. CHEST: Minimal basilar rhonchi. HEART: S1, S2 regular. ABDOMEN: Soft. EXTREMITIES: No edema. LABORATORY DATA: Hemoglobin and hematocrit 9.1 and 28.4, white count 13.8, platelet count 302,000. SMA-7 is within normal limits except for glucose of 162 and BUN of 27. ASSESSMENT: 1. Status post anterior wall myocardial infarction and percutaneous coronary intervention to the left anterior descending. 2. Diabetes mellitus. 3. Congestive heart failure. 4. Hypertension. RECOMMENDATIONS: Continue Amaryl 2 mg once a day, aspirin 81 mg once a day, Carafate 1 g twice a day, Cozaar 50 mg once a day, Klor-Con 10 mEq once a day, Lasix 40 mg intravenously twice a day, Plavix 75 mg once a day, Lipitor 20 mg once a day, Toprol-XL 25 mg once a day. Discontinue heparin if further coronary intervention is planned for tomorrow. Jesus Manuel MD
[2017-11-15 06:52] LABS: BASO # 0.03 K/mm3 (0.0-2.0); BASO % 0.2 % (0.0-3.0); EOS # 0.4 (0.0-0.7); EOS % 3.3 % (1.5-5.0); GRAN # 9.17 (1.4-6.5); HEMOGLOBIN 9.4 g/dL (12.0-16.0); LYMPH # 1.8 (1.2-3.4); LYMPH % 14.6 % (22.0-35.0); MEAN CELL VOLUME 86.6 fl (80.0-105.0); MEAN CORPUSCULAR HEMOGLOBIN 27.9 pg (25.0-35.0); MEAN CORPUSCULAR HGB CONC 32.2 g/dl (31.0-37.0); MEAN PLATELET VOLUME 10.4 fl (7.0-11.0); MONO # 1.1 (0.1-0.6); MONO % 8.9 % (1.0-6.0); RBC 3.37 10^6/uL (3.5-6.1); RED CELL DISTRIBUTION WIDTH 13.2 % (11.5-14.5); WHITE BLOOD COUNT 12.6 10^3/ul (4.5-11.0)
[2017-11-15 07:06] LABS: INR 1.66 (0.93-1.08); PARTIAL THROMBOPLASTIN TIME 43.3 Seconds (25.1-36.5); PROTHROMBIN TIME 19.3 SECONDS (9.4-12.5)
[2017-11-15 07:47] LABS: ALBUMIN 3.5 g/dL (3.0-4.8); CALCIUM 9.2 mg/dL (8.4-10.5)
[2017-11-15] MEDS: Insulin Reg-LOW-Coverage SC SCH ×4 (08:02→22:00)
[2017-11-15] MEDS ORDERED: Lidocaine 2% Inj (20ml) ONE (08:04)
[2017-11-15] MEDS ORDERED: Heparin 0 ML IV ONE (08:05)
[2017-11-15] MEDS ORDERED: Iodixanol 320 MG/ML 200 ML BOTTLE IV ONE (08:05)
[2017-11-15] MEDS ORDERED: Midazolam 2 MG/2 ML VIAL ONE (08:05)
[2017-11-15] MEDS: Metoprolol Succinate 25 mg XL Tab PO SCH (08:07)
[2017-11-15] MEDS: Potassium Chloride 10 mEq ER Tab PO SCH (08:07)
--- NOTE | 2017-11-15 11:04 | RAD ---
HISTORY: s/p stemi COMPARISON: 11/11/2017 TECHNIQUE: Chest PA and lateral FINDINGS: LUNGS: Small left-sided pleural effusion. PLEURA: No significant pleural effusion identified. No pneumothorax apparent. CARDIOVASCULAR: Moderate cardiomegaly. Improved vascular congestion OSSEOUS STRUCTURES: No significant abnormalities. VISUALIZED UPPER ABDOMEN: Normal. OTHER FINDINGS: None. IMPRESSION: Improved vascular congestion. Small left-sided effusion
--- NOTE | 2017-11-15 11:55 | CP.CCUPN ---
<Lucas Younger - Last Filed: 11/15/17 12:30> CCU Subjective - Physician Review Events Since Last Encounter (Free Text): 11/15/17 09:00A Patient seen and examined at bedside. No acute events overnight. Patient is resting comfortably in bed with no complaints, but is chronically demented. Tolerated po diet this morning. CCU Objective - Vital Signs / Intake & Output Vital Signs (Last 4 hours): Vital Signs Pulse BP 11/15/17 09:41 128/63 11/15/17 08:07 62 128/63 Intake and Output (Last 8hrs): Intake & Output 11/14/17 11/15/17 11/15/17 22:59 06:59 14:59 Intake Total 227 226 Output Total 950 Balance -723 226 Intake: IV 127 226 Left Hand 127 Oral 100 Output: Urine 950 Urine, Voided 950 Other: # Bowel Movements 1 - Physical Exam Physical Exam Limitations: Positive for: Other (Patient has underlying dementia , orientation waxes and wanes) Head: Positive for: Atraumatic, Normocephalic Pupils: Positive for: PERRL. Negative for: Non-Reactive, Pinpoint Extroacular Muscles: Positive for: EOMI. Negative for: Gaze Palsy, Entrapment Conjunctiva: Positive for: Normal. Negative for: Injected, Icteric Mouth: Positive for: Moist Mucous Membranes, Normal Lips, Normal Tounge Nose (External): Positive for: Atraumatic. Negative for: Abrasion, Laceration Nose (Internal): Positive for: Normal Inspection, No Active Bleeding. Negative for: Epistaxis Neck: Positive for: Normal Range of Motion. Negative for: JVD Respiratory/Chest: Positive for: Clear to Auscultation, Good Air Exchange, Rales (faint bibasilar rales). Negative for: Respiratory Distress, Accessory Muscle Use, Wheezes, Decreased Breath Sounds, Retracting, Rhonchi Cardiovascular: Positive for: Regular Rate and Rhythm, Normal S1, S2. Negative for: Murmurs, Irregular Rhythm, Tachycardic, Bradycardic Abdomen: Positive for: Normal Bowel Sounds. Negative for: Tenderness, Distention, Peritoneal Signs, Feeding Tubes Back: Positive for: Normal Inspection Upper Extremity: Positive for: Normal Inspection, Normal ROM, NORMAL PULSES. Negative for: Cyanosis, Edema, Tenderness, Swelling, Erythema, Deformity Lower Extremity: Positive for: Normal Inspection, NORMAL PULSES, Normal ROM. Negative for: Edema, CALF TENDERNESS, Cyanosis, Tenderness, Swelling, Erythema, Deformity Neurological: Positive for: GCS=15, Speech Normal, Motor Func Grossly Intact, Normal Sensory Function, Other (awake and alert, moving all extremities spontaneously, following all commands appropriately) Skin: Positive for: Warm, Dry, Normal Color. Negative for: Rashes Psychiatric: Positive for: Alert, Normal Affect, Normal Mood. Negative for: Oriented x 3 (oriented to self and partially to location (knows in a hospital, not which one), can recall some recent events of hospitalization (i.e. emesis episode, chest pain on presentation)), Anxious, Agitated - Medications Active Medications: Active Medications Generic Name Dose Route Start Last Admin Trade Name Freq PRN Reason Stop Dose Admin Aspirin 81 mg 11/12/17 10:00 11/15/17 09:38 Aspirin Chewable PO 81 mg DAILY JORDON Administration Atorvastatin Calcium 20 mg 11/11/17 17:00 11/14/17 17:23 Lipitor PO 20 mg DIN JORDON Administration Clopidogrel Bisulfate 75 mg 11/12/17 10:00 11/15/17 09:38 Plavix PO 75 mg DAILY JORDON Administration Furosemide 40 mg 11/15/17 18:00 Lasix PO BID JORDON Glimepiride 2 mg 11/12/17 10:00 11/15/17 09:46 Amaryl PO 2 mg DAILY JORDON Administration Heparin Sodium/Sodium Chloride 25,000 units in 250 mls @ 8.927 mls/hr 12:00 Heparin 24648 Units/250ml 1/2 Normal Saline IV .Q24H JORDON Protocol 12 UNITS/KG/HR Insulin Human Regular 0 units 11/11/17 16:30 11/15/17 08:02 Humulin R Low SC Not Given ACHS JORDON Protocol Losartan Potassium 50 mg 11/12/17 10:00 11/15/17 09:37 Cozaar PO 50 mg DAILY JORDON Administration Metoprolol Succinate 25 mg 11/12/17 08:00 11/15/17 08:07 Toprol Xl PO 25 mg BRK JORDON Administration Ondansetron HCl 4 mg 11/11/17 17:03 Zofran Inj IVP Q6H PRN Nausea/Vomiting Potassium Chloride 10 meq 11/12/17 08:00 11/15/17 08:07 Klor-Con 10 PO 10 meq BRK JORDON Administration Sucralfate 1 gm 11/11/17 16:00 11/15/17 05:12 Carafate Tab PO 1 gm 0600,1600 JORDON Administration - Patient Studies Lab Studies: Microbiology Studies 11/12/17 15:00 Blood Culture - Preliminary Blood NO GROWTH AFTER 48 HOURS Lab Studies 11/15/17 11/15/17 11/15/17 Range/Units 07:38 05:40 05:40 WBC (4.5-11.0) 10^3/ul RBC (3.5-6.1) 10^6/uL Hgb (12.0-16.0) g/dL Hct (36.0-48.0) % MCV (80.0-105.0) fl MCH (25.0-35.0) pg MCHC (31.0-37.0) g/dl RDW (11.5-14.5) % Plt Count (120.0-450.0) 10^3/uL MPV (7.0-11.0) fl Gran % (50.0-68.0) % Lymph % (Auto) (22.0-35.0) % [place] % (Auto) (1.0-6.0) % Eos % (Auto) (1.5-5.0) % Baso % (Auto) (0.0-3.0) % Gran # (1.4-6.5) Lymph # (Auto) (1.2-3.4) [place] # (Auto) (0.1-0.6) Eos # (Auto) (0.0-0.7) Baso # (Auto) (0.0-2.0) K/mm3 PT 19.3 H (9.4-12.5) SECONDS INR 1.66 H (0.93-1.08) APTT 43.3 H (25.1-36.5) Seconds Sodium 138 (132-148) mmol/L Potassium 3.7 (3.6-5.0) mmol/L Chloride 99 (98-107) mmol/L Carbon Dioxide 28 (21-33) mmol/L Anion Gap 14 (10-20) BUN 27 H (7-21) mg/dL Creatinine 1.1 (0.7-1.2) mg/dl Est GFR ( Amer) 57 Est GFR (Non-Af Amer) 47 POC Glucose (mg/dL) 155 H (65-110) mg/dL Random Glucose 149 H (70-110) mg/dL Calcium 9.2 (8.4-10.5) mg/dL Total Bilirubin 0.6 (0.2-1.3) mg/dL AST 48 H (14-36) U/L ALT 34 (7-56) U/L Alkaline Phosphatase 118 (38-126) U/L Total Protein 7.0 (5.8-8.3) g/dL Albumin 3.5 (3.0-4.8) g/dL Globulin 3.5 gm/dL Albumin/Globulin Ratio 1.0 L (1.1-1.8) 11/15/17 11/14/17 11/14/17 Range/Units 05:40 21:39 15:59 WBC 12.6 H (4.5-11.0) 10^3/ul RBC 3.37 L (3.5-6.1) 10^6/uL Hgb 9.4 L (12.0-16.0) g/dL Hct 29.2 L (36.0-48.0) % MCV 86.6 (80.0-105.0) fl MCH 27.9 (25.0-35.0) pg MCHC 32.2 (31.0-37.0) g/dl RDW 13.2 (11.5-14.5) % Plt Count 314 (120.0-450.0) 10^3/uL MPV 10.4 (7.0-11.0) fl Gran % 73.0 H (50.0-68.0) % Lymph % (Auto) 14.6 L (22.0-35.0) % [place] % (Auto) 8.9 H (1.0-6.0) % Eos % (Auto) 3.3 (1.5-5.0) % Baso % (Auto) 0.2 (0.0-3.0) % Gran # 9.17 H (1.4-6.5) Lymph # (Auto) 1.8 (1.2-3.4) [place] # (Auto) 1.1 H (0.1-0.6) Eos # (Auto) 0.4 (0.0-0.7) Baso # (Auto) 0.03 (0.0-2.0) K/mm3 PT (9.4-12.5) SECONDS INR (0.93-1.08) APTT (25.1-36.5) Seconds Sodium (132-148) mmol/L Potassium (3.6-5.0) mmol/L Chloride (98-107) mmol/L Carbon Dioxide (21-33) mmol/L Anion Gap (10-20) BUN (7-21) mg/dL Creatinine (0.7-1.2) mg/dl Est GFR ( Amer) Est GFR (Non-Af Amer) POC Glucose (mg/dL) 156 H 103 (65-110) mg/dL Random Glucose (70-110) mg/dL Calcium (8.4-10.5) mg/dL Total Bilirubin (0.2-1.3) mg/dL AST (14-36) U/L ALT (7-56) U/L Alkaline Phosphatase (38-126) U/L Total Protein (5.8-8.3) g/dL Albumin (3.0-4.8) g/dL Globulin gm/dL Albumin/Globulin Ratio (1.1-1.8) Laboratory Results - last 24 hr 11/14/17 11/14/17 11/15/17 15:59 21:39 05:40 WBC 12.6 H RBC 3.37 L Hgb 9.4 L Hct 29.2 L MCV 86.6 MCH 27.9 MCHC 32.2 RDW 13.2 Plt Count 314 MPV 10.4 Gran % 73.0 H Lymph % (Auto) 14.6 L [place] % (Auto) 8.9 H Eos % (Auto) 3.3 Baso % (Auto) 0.2 Gran # 9.17 H Lymph # (Auto) 1.8 [place] # (Auto) 1.1 H Eos # (Auto) 0.4 Baso # (Auto) 0.03 PT INR APTT Sodium Potassium Chloride Carbon Dioxide Anion Gap BUN Creatinine Est GFR ( Amer) Est GFR (Non-Af Amer) POC Glucose (mg/dL) 103 156 H Random Glucose Calcium Total Bilirubin AST ALT Alkaline Phosphatase Total Protein Albumin Globulin Albumin/Globulin Ratio 11/15/17 11/15/17 11/15/17 05:40 05:40 07:38 WBC RBC Hgb Hct MCV MCH MCHC RDW Plt Count MPV Gran % Lymph % (Auto) [place] % (Auto) Eos % (Auto) Baso % (Auto) Gran # Lymph # (Auto) [place] # (Auto) Eos # (Auto) Baso # (Auto) PT 19.3 H INR 1.66 H APTT 43.3 H Sodium 138 Potassium 3.7 Chloride 99 Carbon Dioxide 28 Anion Gap 14 BUN 27 H Creatinine 1.1 Est GFR ( Amer) 57 Est GFR (Non-Af Amer) 47 POC Glucose (mg/dL) 155 H Random Glucose 149 H Calcium 9.2 Total Bilirubin 0.6 AST 48 H ALT 34 Alkaline Phosphatase 118 Total Protein 7.0 Albumin 3.5 Globulin 3.5 Albumin/Globulin Ratio 1.0 L EKG/Cardiology Studies: Cardiology / EKG Studies 11/15/17 10:21 EKG [ELECTROCARDIOGRAM] Stat Comment: Reason For Exam: Hx STEMI Fingerstick Blood Sugar Results: 155 Critical Care Progress Note - Nutrition Nutrition: Nutrition Category Date Time Status NPO Diet [DIET] Diets 11/15/17 Breakfast Ordered Assessment/Plan - Assessment and Plan (Free Text) Assessment: This is an 82 yo AA F with pertinent history of Dementia who presented with STEMI in field. Patient is s/p cardiac catheterization with 1 X HEVER in LAD. Patient was found to have persistent BRYSON in V2 and V3 on monitor after her catheterization, for which she still needs ICU care. Initial EKG was notable for BRYSON in V1-V4 with reciprocal depressions in II, III , aVF. Troponin was indeterminate at .10, but only one was drawn. Lipid panel and TSH is within normal limits, but ECHO reveals EF of 32.8% as well as concentric LVH, apical and acacia-septal hypokinesis, mild MR, moderate TR, and moderate-severe pulm HTN. At this time, there is concern for persistent ischemia given BRYSON and patient's ECHO findings. Regarding patient's pulmonary edema, admission CXR showed cardiomegaly + mild pulm venous congestion and small left pleural effusion vs inferolateral pleural parencymal thickening; today, shows improved congestion with unchanged left pleural effusion. Regarding leukocytosis, it is likely 2/2 reactive from catheterization; patient remains afebrile and without other SIRS criteria, blood cultures and MRSA screen negative to date. Procal was indeterminate at .07, but no source at present. Plan: Neuro: - Maintain normothermia - High fall risk, maintain aspiration precautions 2/2 patient's underlying chronic dementia Cardio: - Continue DAPT with ASA/Plavix, Toprol, Lipitor, Cozaar - Cardiology consult: Dr. Arteaga (Interventional); Dr. Silva Patient needs repeat catheterization 2/2 BRYSON noted on monitor Maintain on heparin drip and Lasix 40 mg BID Pulm: - Continue supplemental O2 PRN to keep SaO2 > 90% GI: - AST elevation likely 2/2 STEMI - Resolving: monitor for now - Heart-healthy diet - Continue carafate and PRN Zofran - No GI ppx s/p cardiac cath as per Cardio Renal: - Replete electrolytes as needed, K-dur 40 today - Maintain K+ > 4.0 Heme: - SCDs for DVT ppx - No indication for transfusion at this time ID: - Leukocytosis, likely reactive from cardiac catherization: Discontinue Levaquin at this time Dispo: Pending re-evaluation from Dr. Arteaga regarding repeat catheterization FEN: HHD Access: Peripheral IVs Ppx: No GI ppx s/p cath, Heparin drip covers for DVT <Colin Brumfield - Last Filed: 11/15/17 14:40> CCU Objective - Vital Signs / Intake & Output Vital Signs (Last 4 hours): Vital Signs Temp Pulse Resp BP Pulse Ox 11/15/17 12:00 98.2 F 62 22 127/52 L 98 Intake and Output (Last 8hrs): Intake & Output 11/14/17 11/15/17 11/15/17 22:59 06:59 14:59 Intake Total 227 226 Output Total 950 Balance -723 226 Weight 164 lb Intake: IV 127 226 Left Hand 127 Oral 100 Output: Urine 950 Urine, Voided 950 Other: # Bowel Movements 1 - Medications Active Medications: Active Medications Generic Name Dose Route Start Last Admin Trade Name Freq PRN Reason Stop Dose Admin Aspirin 81 mg 11/12/17 10:00 11/15/17 09:38 Aspirin Chewable PO 81 mg DAILY JORDON Administration Atorvastatin Calcium 20 mg 11/11/17 17:00 11/14/17 17:23 Lipitor PO 20 mg DIN JORDON Administration Clopidogrel Bisulfate 75 mg 11/12/17 10:00 11/15/17 09:38 Plavix PO 75 mg DAILY JORDON Administration Furosemide 40 mg 11/15/17 18:00 Lasix PO BID JORDON Glimepiride 2 mg 11/12/17 10:00 11/15/17 09:46 Amaryl PO 2 mg DAILY JORDON Administration Insulin Human Regular 0 units 11/11/17 16:30 11/15/17 12:06 Humulin R Low SC Not Given ACHS [facility] Protocol Losartan Potassium 50 mg 11/12/17 10:00 11/15/17 09:37 Cozaar PO 50 mg DAILY JORDON Administration Metoprolol Succinate 25 mg 11/12/17 08:00 11/15/17 08:07 Toprol Xl PO 25 mg BRK OJRDON Administration Ondansetron HCl 4 mg 11/11/17 17:03 Zofran Inj IVP Q6H PRN Nausea/Vomiting Potassium Chloride 10 meq 11/12/17 08:00 11/15/17 08:07 Klor-Con 10 PO 10 meq BRK JORDON Administration Sucralfate 1 gm 11/11/17 16:00 11/15/17 05:12 Carafate Tab PO 1 gm 0600,1600 JORDON Administration - Patient Studies Lab Studies: Microbiology Studies 11/12/17 15:00 Blood Culture - Preliminary Blood NO GROWTH AFTER 48 HOURS Lab Studies 11/15/17 11/15/17 11/15/17 Range/Units 07:38 05:40 05:40 WBC (4.5-11.0) 10^3/ul RBC (3.5-6.1) 10^6/uL Hgb (12.0-16.0) g/dL Hct (36.0-48.0) % MCV (80.0-105.0) fl MCH (25.0-35.0) pg MCHC (31.0-37.0) g/dl RDW (11.5-14.5) % Plt Count (120.0-450.0) 10^3/uL MPV (7.0-11.0) fl Gran % (50.0-68.0) % Lymph % (Auto) (22.0-35.0) % [place] % (Auto) (1.0-6.0) % Eos % (Auto) (1.5-5.0) % Baso % (Auto) (0.0-3.0) % Gran # (1.4-6.5) Lymph # (Auto) (1.2-3.4) [place] # (Auto) (0.1-0.6) Eos # (Auto) (0.0-0.7) Baso # (Auto) (0.0-2.0) K/mm3 PT 19.3 H (9.4-12.5) SECONDS INR 1.66 H (0.93-1.08) APTT 43.3 H (25.1-36.5) Seconds Sodium 138 (132-148) mmol/L Potassium 3.7 (3.6-5.0) mmol/L Chloride 99 (98-107) mmol/L Carbon Dioxide 28 (21-33) mmol/L Anion Gap 14 (10-20) BUN 27 H (7-21) mg/dL Creatinine 1.1 (0.7-1.2) mg/dl Est GFR ( Amer) 57 Est GFR (Non-Af Amer) 47 POC Glucose (mg/dL) 155 H (65-110) mg/dL Random Glucose 149 H (70-110) mg/dL Calcium 9.2 (8.4-10.5) mg/dL Total Bilirubin 0.6 (0.2-1.3) mg/dL AST 48 H (14-36) U/L ALT 34 (7-56) U/L Alkaline Phosphatase 118 (38-126) U/L Total Protein 7.0 (5.8-8.3) g/dL Albumin 3.5 (3.0-4.8) g/dL Globulin 3.5 gm/dL Albumin/Globulin Ratio 1.0 L (1.1-1.8) 11/15/17 11/14/17 11/14/17 Range/Units 05:40 21:39 15:59 WBC 12.6 H (4.5-11.0) 10^3/ul RBC 3.37 L (3.5-6.1) 10^6/uL Hgb 9.4 L (12.0-16.0) g/dL Hct 29.2 L (36.0-48.0) % MCV 86.6 (80.0-105.0) fl MCH 27.9 (25.0-35.0) pg MCHC 32.2 (31.0-37.0) g/dl RDW 13.2 (11.5-14.5) % Plt Count 314 (120.0-450.0) 10^3/uL MPV 10.4 (7.0-11.0) fl Gran % 73.0 H (50.0-68.0) % Lymph % (Auto) 14.6 L (22.0-35.0) % [place] % (Auto) 8.9 H (1.0-6.0) % Eos % (Auto) 3.3 (1.5-5.0) % Baso % (Auto) 0.2 (0.0-3.0) % Gran # 9.17 H (1.4-6.5) Lymph # (Auto) 1.8 (1.2-3.4) [place] # (Auto) 1.1 H (0.1-0.6) Eos # (Auto) 0.4 (0.0-0.7) Baso # (Auto) 0.03 (0.0-2.0) K/mm3 PT (9.4-12.5) SECONDS INR (0.93-1.08) APTT (25.1-36.5) Seconds Sodium (132-148) mmol/L Potassium (3.6-5.0) mmol/L Chloride (98-107) mmol/L Carbon Dioxide (21-33) mmol/L Anion Gap (10-20) BUN (7-21) mg/dL Creatinine (0.7-1.2) mg/dl Est GFR ( Amer) Est GFR (Non-Af Amer) POC Glucose (mg/dL) 156 H 103 (65-110) mg/dL Random Glucose (70-110) mg/dL Calcium (8.4-10.5) mg/dL Total Bilirubin (0.2-1.3) mg/dL AST (14-36) U/L ALT (7-56) U/L Alkaline Phosphatase (38-126) U/L Total Protein (5.8-8.3) g/dL Albumin (3.0-4.8) g/dL Globulin gm/dL Albumin/Globulin Ratio (1.1-1.8) Laboratory Results - last 24 hr 11/14/17 11/14/17 11/15/17 15:59 21:39 05:40 WBC 12.6 H RBC 3.37 L Hgb 9.4 L Hct 29.2 L MCV 86.6 MCH 27.9 MCHC 32.2 RDW 13.2 Plt Count 314 MPV 10.4 Gran % 73.0 H Lymph % (Auto) 14.6 L [place] % (Auto) 8.9 H Eos % (Auto) 3.3 Baso % (Auto) 0.2 Gran # 9.17 H Lymph # (Auto) 1.8 [place] # (Auto) 1.1 H Eos # (Auto) 0.4 Baso # (Auto) 0.03 PT INR APTT Sodium Potassium Chloride Carbon Dioxide Anion Gap BUN Creatinine Est GFR ( Amer) Est GFR (Non-Af Amer) POC Glucose (mg/dL) 103 156 H Random Glucose Calcium Total Bilirubin AST ALT Alkaline Phosphatase Total Protein Albumin Globulin Albumin/Globulin Ratio 11/15/17 11/15/17 11/15/17 05:40 05:40 07:38 WBC RBC Hgb Hct MCV MCH MCHC RDW Plt Count MPV Gran % Lymph % (Auto) [place] % (Auto) Eos % (Auto) Baso % (Auto) Gran # Lymph # (Auto) [place] # (Auto) Eos # (Auto) Baso # (Auto) PT 19.3 H INR 1.66 H APTT 43.3 H Sodium 138 Potassium 3.7 Chloride 99 Carbon Dioxide 28 Anion Gap 14 BUN 27 H Creatinine 1.1 Est GFR ( Amer) 57 Est GFR (Non-Af Amer) 47 POC Glucose (mg/dL) 155 H Random Glucose 149 H Calcium 9.2 Total Bilirubin 0.6 AST 48 H ALT 34 Alkaline Phosphatase 118 Total Protein 7.0 Albumin 3.5 Globulin 3.5 Albumin/Globulin Ratio 1.0 L EKG/Cardiology Studies: Cardiology / EKG Studies 11/15/17 10:21 EKG [ELECTROCARDIOGRAM] Stat Comment: Reason For Exam: Hx STEMI Critical Care Progress Note - Nutrition Nutrition: Nutrition Category Date Time Status Heart Healthy Diet [DIET] Diets 11/15/17 Lunch Active Assessment/Plan - Assessment and Plan (Free Text) Assessment: Patient seen and examined on rounds with resident, agree with note, with following additions/exceptions: Patient is 82yo female with PMHx Dementia, a/w STEMI s/p HEVER to LAD. Currently afebrile, HD stable, comfortable in NAD, doing well denies CP, SOB. Followed by cardiology. No plans for cardiac cath today. CAD s/p STEMI s/p HEVER to LAD HTN Dementia Recommend: - supp o2 as needed - duonebs PRN - ASA, Plavix, Statin, Lopressor - follow up cardiology - BP control - Replete electrolytes - follow up cultures, Procal - GI ppx - DVT ppx, HSQ - Stable, transfer to telemetry
[2017-11-15] MEDS ORDERED: Heparin25000 units/250ml 1/2NS 25,000 UNITS/250 ML BAG IV SCH ×3 (12:00→12:15)
--- NOTE | 2017-11-15 13:13 | CARD ---
APPROVED REPORT EKG Measurement Heart [id number] [place] [id number] <Conclusion> Normal sinus rhythm Left anterior fascicular block Septal infarct, age undetermined ST & T wave abnormality c/w ischemia
[2017-11-15] MEDS: Potassium Chloride 20 mEq ER Tab PO STA ×2 (13:18→13:33)
[2017-11-15] MEDS ORDERED: Potassium Chloride 40 mEq/30 ml LIQ UD PO ONE (14:04)
--- NOTE | 2017-11-15 16:46 | PN ---
DATE: 11/15/2017 CARDIOLOGY FOLLOWUP SUBJECTIVE: The patient's breathing is stable. No shortness of breath. No chest pain noted. PHYSICAL EXAMINATION: VITAL SIGNS: Blood pressure is 128/63, the heart rate is in the 60s. NECK: Negative JVD. LUNGS: Without rales. HEART: S1, S2. EXTREMITIES: Without edema. LABORATORY DATA: BUN and creatinine are 27 and 1.1, the glucose is 149. Hemoglobin is 9.4. IMPRESSION: 1. Status post anteroseptal myocardial infarction. 2. Dilated cardiomyopathy. 3. Diabetes mellitus. 4. Diffuse coronary artery disease. 5. Resolution of congestive heart failure. PLAN: Given these findings, the patient is clinically stable at this time. We will cancel cardiac catheterization for now. We will discontinue heparin and will transfer the patient to telemetry. Gregory Arteaga MD
--- NOTE | 2017-11-15 17:29 | PN ---
DATE: 11/15/2017 SUBJECTIVE: Patient is 82 years old, seen and examined, lying in bed, seems to be comfortable. No cough, no congestion, no fever, no chills. OBJECTIVE: VITAL SIGNS: She is afebrile. Pulse 67, respirations 19, and blood pressure 128/63. LUNGS: Bilateral fair airflow. No rhonchi or crackle. HEART: S1 and S2 audible. ABDOMEN: Soft, obese, nontender, no rebound, no guarding. NEUROLOGIC: She is awake, alert, oriented, and communicative. EXTREMITIES: Bilateral leg, no edema. LABORATORY EXAM: WBC is 12.6, hemoglobin 9.4, hematocrit 29.2, and platelets 314. PT 19.3, INR 1.66. Chemistry: Sodium 138, potassium 3.7, chloride 99, CO2 of 28. BUN 27, creatinine 1.1. Blood sugar of 155. Urinalysis is unremarkable. She had x-ray chest done that shows improved vascular congestion, small left-sided pleural effusion. ASSESSMENT: 1. Status post code heart and acute myocardial infarction, angioplasty of left anterior descending. 2. Congestive heart failure. 3. Left ventricular dysfunction. 4. Hyperlipidemia. 5. Ied-kdbimgg-bryuugfdn diabetes. 6. Anemia. 7. Status post anterior wall myocardial infarction. PLAN: Currently, patient is on glimepiride and aspirin, we will continue that. She is on losartan. As per notes, her heparin has been stopped and continue her on diuretics. Continue her on Plavix and beta-jairo. We will monitor her closely, might be transferred to telemetry in a.m. Jennie Gibbs MD
[2017-11-16] MEDS: Insulin Reg-LOW-Coverage SC SCH ×4 (07:45→21:30)
[2017-11-16] MEDS: Potassium Chloride 10 mEq ER Tab PO SCH (08:35)
[2017-11-16] MEDS: Metoprolol Succinate 25 mg XL Tab PO SCH (08:35)
--- NOTE | 2017-11-16 10:34 | PN ---
DATE: 11/16/2017 CARDIOLOGY FOLLOWUP SUBJECTIVE: The patient is chest pain free. She is comfortable in bed. No shortness of breath noted. PHYSICAL EXAMINATION: VITAL SIGNS: The blood pressure is 137/50, the heart rates in the 60s. NECK: Negative JVD. LUNGS: Without rales. HEART: Reveals S1, S2. EXTREMITIES: Without edema. LABORATORY DATA: The troponin is 10 post PTCA. The glucose is 150. creatinine is 1.1. IMPRESSION: 1. Status post [id number] myocardial infarction. 2. Percutaneous transluminal coronary angioplasty and stent of the left anterior descending. 3. The patient is asymptomatic from a cardiac perspective. 4. Diabetes mellitus. 5. Dilated cardiomyopathy. PLAN: Given these findings, we will continue the patient on heparin. We will transfer to telemetry. I do not feel doing a cardiac catheterization at this time would be helpful for the patient. We will continue on medical therapy. Gregory Arteaga MD
--- NOTE | 2017-11-16 11:00 | CARD ---
APPROVED REPORT EKG Measurement Heart [id number] <Conclusion> Sinus bradycardia Left axis deviation ASMI, age unknown STTW changes c/w ischemia No change
--- NOTE | 2017-11-16 15:29 | PN ---
DATE: 11/16/2017 SUBJECTIVE: The patient is 82 years old, seen and examined in CCU, sitting in chair, comfortable. No nausea or vomiting. Did not desaturate on exertion, eating and tolerating. No diarrhea. No hemoptysis. No hematemesis. OBJECTIVE: VITAL SIGNS: She is afebrile, pulse 69, respirations 16, blood pressure 137/49. LUNGS: Bilateral fair airflow. No rhonchi or crackle. HEART: S1 and S2 audible. ABDOMEN: Soft, nontender. No rebound. No guarding. NEUROLOGICAL: She is awake, alert, oriented, and communicative. LABORATORY EXAM: Blood sugar is 187. Followup troponin is 10. Blood culture and urine cultures are negative. She had x-ray of chest done that shows resolution of CHF. ASSESSMENT: 1. Status post cardiac code heart and had acute myocardial infarction involving anterior wall status post ST-elevation myocardial infarction and had left anterior descending angioplasty done. 2. Left ventricular dysfunction. 3. Non-insulin dependent diabetes. 4. Dilated cardiomyopathy. PLAN: Patient is clinically stable. Can be transferred to telemetry. We will continue patient on glimepiride, aspirin. Continue losartan. Continue DVT prophylaxis. Monitor blood sugar. Continue on Plavix and metoprolol. Patient will be transferred to telemetry and then we will request TCU evaluation prior to discharge home. She needs some physical therapy because of her prolonged acute sickness. Jennie Gibbs MD
[2017-11-17] MEDS: Insulin Reg-LOW-Coverage SC SCH ×4 (07:45→21:39)
[2017-11-17] MEDS: Potassium Chloride 10 mEq ER Tab PO SCH (08:14)
[2017-11-17] MEDS: Metoprolol Succinate 25 mg XL Tab PO SCH (08:14)
--- NOTE | 2017-11-17 09:27 | PN ---
DATE: 11/17/2017 CARDIOLOGY FOLLOWUP SUBJECTIVE: The patient is chest pain free. OBJECTIVE: Blood pressure is 107/43, the heart rate is in the 70s. NECK: Negative JVD. LUNGS: Without rales. HEART: Reveal S1, S2. EXTREMITIES: Without edema. LABORATORY DATA: Glucose is 185. IMPRESSION: 1. Status post anterior wall myocardial infarction. 2. Status post percutaneous transluminal coronary angiography and stent of an left anterior descending artery. 3. Diabetes mellitus. 4. Dilated cardiomyopathy. Given these findings, the patient reveals no acute cardiac symptoms at this time. She will need extensive rehabilitation. Gregory Arteaga MD
--- NOTE | 2017-11-17 14:52 | PN ---
DATE: 11/17/2017 SUBJECTIVE: The patient is 82 years old, seen and examined, sitting in chair, seems to be comfortable. No chest pain, no shortness of breath. No nausea or vomiting. No diarrhea. Eating and tolerating. PHYSICAL EXAMINATION: VITAL SIGNS: The patient is afebrile, pulse 76, respirations 18, blood pressure 120/47. LUNGS: Bilateral fair airflow. No rhonchi or crackle. HEART: S1 and S2 audible. ABDOMEN: Soft, nontender. No rebound. No guarding. NEUROLOGICAL: The patient is awake, alert, oriented, communicative. EXTREMITIES: Bilateral legs, no edema. LABORATORY DATA: Blood sugar is 161. Urine cultures and blood cultures are negative. ASSESSMENT: 1. Status post anterior wall myocardial infarction. 2. Status post code heart and left anterior descending artery angioplasty. 3. Ook-upepbjx-waotlwxyx diabetes. 4. Hypertension. 5. Dilated cardiomyopathy. PLAN: We will continue the patient on current medication. Currently, she is on glimepiride, aspirin, losartan. She is on heparin 5000 every 12 hours. We will continue to monitor blood sugar. She is on Lasix 40 twice a day, might taper it down to once a day and see her response. We will follow up electrolyte in the morning and we will reevaluate the patient in the morning. Jennie Gibbs MD
[2017-11-18 06:38] LABS: BASO # 0.02 K/mm3 (0.0-2.0); BASO % 0.1 % (0.0-3.0); EOS # 0.5 (0.0-0.7); EOS % 3.2 % (1.5-5.0); GRAN # 10.14 (1.4-6.5); GRAN % 71.9 % (50.0-68.0); HEMOGLOBIN 9.3 g/dL (12.0-16.0); LYMPH # 2.4 (1.2-3.4); MEAN CELL VOLUME 87.2 fl (80.0-105.0); MEAN CORPUSCULAR HEMOGLOBIN 27.8 pg (25.0-35.0); MEAN CORPUSCULAR HGB CONC 31.8 g/dl (31.0-37.0); MEAN PLATELET VOLUME 9.9 fl (7.0-11.0); MONO # 1.1 (0.1-0.6); MONO % 7.8 % (1.0-6.0); RBC 3.35 10^6/uL (3.5-6.1); RED CELL DISTRIBUTION WIDTH 13.6 % (11.5-14.5); WHITE BLOOD COUNT 14.1 10^3/ul (4.5-11.0)
[2017-11-18 07:01] LABS: ALBUMIN 3.4 g/dL (3.0-4.8); CALCIUM 9.6 mg/dL (8.4-10.5)
[2017-11-18] MEDS: Insulin Reg-LOW-Coverage SC SCH ×4 (08:00→22:27)
[2017-11-18] MEDS: Metoprolol Succinate 25 mg XL Tab PO SCH (08:51)
[2017-11-18] MEDS: Potassium Chloride 10 mEq ER Tab PO SCH (08:51)
--- NOTE | 2017-11-18 11:20 | PN ---
DATE: 11/18/2017 CARDIOLOGY FOLLOWUP SUBJECTIVE: The patient is chest pain free. She is awake, alert. PHYSICAL EXAMINATION: VITAL SIGNS: Blood pressure is 137/69, heart rates in the 60s. NECK: Negative JVD. LUNGS: Without rales. HEART: Reveals S1, S2. EXTREMITIES: Without edema. LABORATORY DATA: Hemoglobin is 9.3. Chemistries: BUN and creatinine are 27 and 1.1, glucose is 141. IMPRESSION: 1. Stable angina. 2. Status post wwe-KF-pjcccjfqf myocardial infarction. 3. Status post percutaneous transluminal coronary angioplasty and stent of the left anterior descending. 4. Hypertension. 5. Diabetes mellitus. 6. Hypercholesterolemia. 7. Dilated cardiomyopathy. PLAN: Given these findings, the patient's cardiac status is stable on her current medications with continue her p.o. Lasix. She will need to be on Plavix. Gregory Arteaga MD
--- NOTE | 2017-11-18 12:44 | PN ---
DATE: 11/18/2017 SUBJECTIVE: The patient is 82 years old, seen and examined, sitting in chair. Seems to be comfortable. No nausea or vomiting. No diarrhea. Eating and tolerating. Ambulating. Did saturate to 94%. PHYSICAL EXAMINATION: VITAL SIGNS: She is afebrile, pulse 56, respirations 18, blood pressure 137/69. LUNGS: Bilateral fair airflow. Few soft crackles at bases. HEART: S1 and S2 audible. ABDOMEN: Soft. Nontender. No rebound. No guarding. NEUROLOGICAL: She is awake, alert, oriented, communicative. EXTREMITIES: Bilateral legs, no edema. LABORATORY EXAM: WBC is 14, hemoglobin 9.3, hematocrit 29, platelet of 364. Chemistry: Sodium 139, potassium 4.4, chloride 103, CO2 of 26, BUN 27, creatinine 1.1, blood sugar 138. Blood culture, urine cultures are negative. ASSESSMENT: 1. Status post anterior wall myocardial infarction, status post left anterior descending angioplasty. 2. Congestive heart failure. 3. Czt-jfzltoc-zdhcsvfgo diabetes. 4. Hypertension. 5. Hyperlipidemia. 6. Dilated cardiomyopathy. PLAN: We will discontinue her telemetry. Encourage ambulation. Her Lasix has been reduced. We will get physical therapy evaluation. If the patient does not desaturate, we will make discharge plan. The patient is not accepted in TCU because of insurance reasons. Also, discontinue heparin for DVT prophylaxis since she is ambulatory now. Jennie Gibbs MD
[2017-11-19] MEDS: Insulin Reg-LOW-Coverage SC SCH ×3 (08:06→16:47)
[2017-11-19] MEDS: Metoprolol Succinate 25 mg XL Tab PO SCH (08:21)
[2017-11-19] MEDS: Potassium Chloride 10 mEq ER Tab PO SCH (08:21)
--- NOTE | 2017-11-19 11:57 | PN ---
DATE: 11/19/2017 CARDIOLOGY FOLLOWUP SUBJECTIVE: The patient is in a chair, eating breakfast without shortness of breath, without chest pain. PHYSICAL EXAMINATION: VITAL SIGNS: Blood pressure is 130/70, the heart rates in the 70s. NECK: Negative JVD. LUNGS: Clear to auscultation. HEART: Reveals S1, S2. EXTREMITIES: Without edema. LABORATORY DATA: Hemoglobin is 9.3. Chemistries: Glucose is 118. IMPRESSION: 1. Stable post percutaneous transluminal coronary angioplasty and stent of an left anterior descending. 2. Stable post cna-IR-quzhwqipo myocardial infarction. 3. Hypertension. 4. Diabetes mellitus. 5. Dilated cardiomyopathy. PLAN: Given these findings, the patient's cardiac status is stable. From a cardiac perspective, the patient can be discharged. She is on aspirin and clopidogrel as well as Lipitor. She will need to remain on Plavix for at least a year. Gregory Arteaga MD
[2017-11-19 15:17] VITALS: BP 125/64; PULSE 50; RESP 20; TEMP 97.7; O2SAT 99
--- NOTE | 2017-11-19 22:22 | DS ---
HISTORY OF PRESENT ILLNESS: The patient is 82 years old, who came in with chest pain, was found to have ST-elevation AK. Code heart was called. The patient underwent cardiac cath within 90 minutes, had left anterior descending stented. Post procedure, the patient did well, but following day she had episode of hypoxia with shortness of breath. She had pulmonary edema and congestive heart failure. Echocardiogram showed left ventricular dysfunction. The patient was transferred to telemetry. Has been ambulating without getting saturated. PHYSICAL EXAMINATION: GENERAL: She is awake, alert, oriented, communicative. VITAL SIGNS: She is afebrile, pulse 50, respirations 20, blood pressure 125/64. LUNGS: Bilateral fair airflow. No rhonchi or crackle. HEART: S1 and S2 audible. ABDOMEN: Soft. Nontender. No rebound. No guarding. NEUROLOGICAL: She is awake, alert, oriented, communicative. LABORATORY EXAM: Blood sugar is 94. ASSESSMENT: 1. Status post myocardial infarction with left anterior descending angioplasty. 2. Anterior wall myocardial infarction. 3. Congestive heart failure. 4. Hvp-vdajwdb-fpkotuenv diabetes. 5. Hypertension. 6. Hyperlipidemia. PLAN: The patient is being discharged home. She will resume her Diovan. She has been given prescription of metoprolol 25 at bedtime. She is on Lasix 40 daily, Plavix 75 daily, atorvastatin 20 mg daily and potassium 20 mEq daily. She takes Amaryl at home. She will continue that and she will continue Diovan. We will discontinue her Norvasc for now until we reevaluate the patient in the office. Jennie Gibbs MD
== END 2017-11-19 17:59 | disposition home health service (06) | DRG 246 ==
LOC: ED 00:12 → MERGE 02:16 → SDS 02:16 → CCU 02:18 → UNDOADMOB 11-11 08:45 → INTOOBSV 11-11 08:45 → CCU 11-11 08:45 → SDS 11-11 08:45 → 2RNO 11-16 15:28 → 5RSO 11-18 14:22
PROVIDERS: ADMIT Internal Medicine; ATTEND Internal Medicine
PROC: 027034Z Dilation of Coronary Artery, One Artery with Drug-eluting Intraluminal Device, Percutaneous Approach (ICD-10-PCS; principal; 2017-11-10)
PROC: 3E033PZ Introduction of Platelet Inhibitor into Peripheral Vein, Percutaneous Approach (ICD-10-PCS; 2017-11-10)
PROC: 4A023N7 Measurement of Cardiac Sampling and Pressure, Left Heart, Percutaneous Approach (ICD-10-PCS; 2017-11-10)
PROC: B211YZZ Fluoroscopy of Multiple Coronary Arteries using Other Contrast (ICD-10-PCS; 2017-11-10)
PROC: B215YZZ Fluoroscopy of Left Heart using Other Contrast (ICD-10-PCS; 2017-11-10)
DX: I21.09 ST elevation (STEMI) myocardial infarction involving other coronary artery of anterior wall (principal); I50.21 Acute systolic (congestive) heart failure; I42.0 Dilated cardiomyopathy; E11.9 Type 2 diabetes mellitus without complications; F03.90 Unspecified dementia, unspecified severity, without behavioral disturbance, psychotic disturbance, mood disturbance, and anxiety; I11.0 Hypertensive heart disease with heart failure; I25.5 Ischemic cardiomyopathy; I25.118 Atherosclerotic heart disease of native coronary artery with other forms of angina pectoris; R09.02 Hypoxemia; E78.00 Pure hypercholesterolemia, unspecified; I27.20 Pulmonary hypertension, unspecified; D64.9 Anemia, unspecified; Z79.84 Long term (current) use of oral hypoglycemic drugs; Z90.49 Acquired absence of other specified parts of digestive tract

== ENCOUNTER 2018-03-27 07:57 | Inpatient (IN) | payer OTHER ==
[2018-03-27 08:02] VITALS: BMI 32.9
--- NOTE | 2018-03-27 08:24 | ED PDOC ---
Arrival/HPI - General Historian: Family EM Caveat: Respiratory Distress - History of Present Illness Narrative History of Present Illness (Text): 03/27/18 08:14 83 yo F with PMHx of dementia, DM, HTN, and HI with stent placement presenting to the ED complaining of chest pain and SOB that began within the last hour associated with nausea and 1 episode of vomiting. Of note, patient was admitted on 11/12/2017 for anterior HI and underwent emergent PTCA with HEVER placed in the proximal-mid LAD, estimated LVEF 40%. ROS unattainable due to patient's clinical status. Patient's son states that current symptoms are similar to those back in 11/2017. Patient's history obtained from son. PMD: Dr. Gibbs Symptom Onset: Sudden Symptom Course: Unchanged Quality: Unable to Describe Severity Level: Severe Activities at Onset: Rest <Donavon Mcdonald - Last Filed: 03/27/18 15:54> <Rafy Patel - Last Filed: 03/31/18 07:15> - General Chief Complaint: Respiratory Distress Time Seen by Provider: 03/27/18 08:02 Past Medical History - Provider Review Nursing Documentation Reviewed: Yes - Cardiac Hx Cardiac Disorders: Yes Hx Congestive Heart Failure: Yes Hx Hypertension: Yes - Pulmonary Hx Respiratory Disorders: No - HEENT Other/Comment: wears reading glasses - Renal Other/Comment: prolapsed bladder -appt. with Dr Ricks every 3 months - Endocrine/Metabolic Hx Diabetes Mellitus Type 2: Yes - Musculoskeletal/Rheumatological Hx Falls: No - Psychiatric Hx Substance Use: No - Surgical History Hx Cholecystectomy: Yes <Donavon Mcdonald - Last Filed: 03/27/18 15:54> Family/Social History - Physician Review Nursing Documentation Reviewed: Yes Family/Social History: Unknown Family HX Smoking Status: Never Smoked Hx Alcohol Use: No Hx Substance Use: No <Donavon Mcdonald - Last Filed: 03/27/18 15:54> Allergies/Home Meds <Donavon Mcdonald - Last Filed: 03/27/18 15:54> <Rafy Patel - Last Filed: 03/31/18 07:15> Allergies/Adverse Reactions: Allergies No Known Allergies Allergy (Verified 03/27/18 08:16) Home Medications: Home Meds Medication Instructions Recorded Confirmed Glimepiride [amaRYL] 2 mg PO BID 03/27/18 03/27/18 Review of Systems - Review of Systems Systems not reviewed;Unavailable: Dementia Cardiovascular: Chest Pain, BARRIENTOS Gastrointestinal: Nausea, Vomiting <Donavon Mcdonald - Last Filed: 03/27/18 15:54> Physical Exam Vital Signs Reviewed: Yes Temperature: Afebrile Blood Pressure: Hypertensive Pulse: Tachycardic Respiratory Rate: Tachypneic Appearance: Positive for: Uncomfortable, Other (Respiratory distress, weak) Mental Status: Positive for: Confused - Systems Exam Head: Present: Atraumatic, Normocephalic Pupils: Present: PERRL Extroacular Muscles: Present: EOMI Conjunctiva: Present: Normal Mouth: Present: Moist Mucous Membranes Neck: Present: Normal Range of Motion Respiratory/Chest: Present: Clear to Auscultation, Respiratory Distress. No: Wheezes, Rales, Rhonchi Abdomen: Present: Normal Bowel Sounds. No: Tenderness, Distention, Peritoneal Signs, Rebound, Guarding, Mass/Organomegaly Back: Present: Normal Inspection Upper Extremity: Present: Normal Inspection, Normal ROM, NORMAL PULSES, Capillary Refill < 2s. No: Cyanosis, Edema, Tenderness, Swelling Lower Extremity: Present: Normal Inspection, Edema (Mild b/l nonpitting edema), NORMAL PULSES, Capillary Refill < 2 s. No: CALF TENDERNESS, Cyanosis, Tenderness, Swelling Neurological: Present: GCS=15, CN II-XII Intact Skin: Present: Warm, Dry, Normal Color. No: Rashes Psychiatric: Present: Alert, Oriented x 3 (A&Ox2), Normal Insight, Normal Concentration <Donavon Mcdonald - Last Filed: 03/27/18 15:54> Vital Signs Temp Pulse Resp BP Pulse Ox 03/27/18 10:15 98 H 22 157/93 H 97 03/27/18 09:01 183/105 H 03/27/18 09:00 96 H 19 171/99 H 95 03/27/18 08:13 96.8 F L 107 H 24 178/113 H 98 03/27/18 08:00 96.8 F L 112 H 26 H 98 <Rafy Patel - Last Filed: 03/31/18 07:15> Medical Decision Making ED Course and Treatment: 03/27/18 08:39 Impression: 83 yo F with PMHx of HTN, DM, dementia, recent HI with HEVER placement in LAD presenting to ED with acute onset chest pain and sob w/ associated nausea and vomiting Plan: --CBC, CMP --Trop --BNP --PT/PTT --D dimer --ABG --BCX --UA,UCX --EKG --CXR --Bipap/CPAP --lasix 20mg iv x1 --monitor and disposition 03/27/18 09:07 Patient breathing more comfortably on NC 03/27/18 09:16 Patient desaturating to 80s intermittently, in respiratory distress Seen vomiting in ED requiring suction Nitro paste considered but cancelled; pt noted to fahad down to 40s Pt now saturating mid 90s with NC 03/27/18 09:30 Dr. Gibbs made aware of patient, at bedside. Agrees with decision to consult ICU at this time once remainder of labs have been resulted. 03/27/18 10:51 Per nurse, troponin #1: 0.214 Pt saturating well on NC In no acute distress - RAD Interpretation Narrative RAD Interpretations (Text): 03/27/18 15:54 CXR: patchy R basilar opacity, small R pleural effusion. Mild congestive change. CT abdomen/pelvis: B/L pleural effusion, lower lobe subsegmental atelectasis Radiology Orders: 03/27/18 08:07 CHEST PORTABLE [RAD] Stat - EKG Interpretation EKG Interpretation (Text): 03/27/18 08:43 EKG 1: Sinus tachy @ 112 bpm with frequent PVCs L anterior fascicular block Minimal voltage criteria for LVH Septal infarct, age undetermined 03/27/18 09:31 EKG 2: Sinus bradycardia 59 bpm L axis deviation ASMI, age unknown STTW changes c/w ischemia Interpreted by ED Physician: Yes Type: 12 lead EKG <Donavon Mcdonald - Last Filed: 03/27/18 15:54> ED Course and Treatment: 03/27/18 11:[address] Cr(steel tier) who after review of patient's findings, will come to evaluate the patient. 03/27/18 11:26 Dr. Cr at the bedside and after evaluation of patient, states patient may go to Telemetry. He states CT a/p may be helpful in determining etiology of symptoms and will gladly reevaluate patient if clincical disposition changes. - Lab Interpretations Lab Results: 03/27/18 08:00 03/27/18 10:30 Lab Results 03/27/18 10:30: Sodium 139, Chloride 109 H, Potassium 3.8, Carbon Dioxide 19 L, Anion Gap 15, BUN 14, Creatinine 0.9, Est GFR ( Amer) > 60, Est GFR (Non- Af Amer) 60, Random Glucose 260 H, Calcium 9.3, Total Bilirubin 0.4, AST 24, ALT 24, Alkaline Phosphatase 138 H, Total Protein 6.7, Albumin 3.5, Globulin 3.2, Albumin/Globulin Ratio 1.1 03/27/18 08:41: Troponin I 0.21 H* D 03/27/18 08:20: pO2 92 H, VBG pH 7.34, VBG pCO2 38.0 L, VBG HCO3 20.5 L, VBG Total CO2 21.7 L, VBG O2 Sat (Calc) 99.4 H, VBG Base Excess -4.8 L, VBG Potassium 3.5 L, Sodium 138.0, Chloride 110.0 H, Glucose 271 H, Lactate 2.6 H, FiO2 21.0, Venous Blood Potassium 3.5 L 03/27/18 08:00: Magnesium 1.8, NT-Pro-B Natriuret Pep 8510 H 03/27/18 08:00: WBC 11.4 H, RBC 3.65, Hgb 10.1 L, Hct 32.1 L, MCV 87.9, MCH 27.7, MCHC 31.5, RDW 14.8 H, Plt Count 434, MPV 10.0, Gran % 43.8 L, Lymph % (Auto) 40.8 H, [place] % (Auto) 6.5 H, Eos % (Auto) 8.5 H, Baso % (Auto) 0.4, Gran # 4.99, Lymph # (Auto) 4.7 H, [place] # (Auto) 0.7 H, Eos # (Auto) 1.0 H, Baso # (Auto) 0.05 - RAD Interpretation Radiology Orders: 03/27/18 08:07 CHEST PORTABLE [RAD] Stat - Medication Orders Current Medication Orders: Ceftriaxone Sodium (Rocephin 1 Gram Ivpb) 1 gm in 100 mls @ 100 mls/hr IVPB STAT STA; Protocol Stop: 03/27/18 11:32 Azithromycin (Zithromax 500mg In Ns) 500 mg in 250 mls @ 167 mls/hr IVPB STAT STA; Protocol Stop: 03/27/18 12:02 Discontinued Medications Furosemide (Lasix) 20 mg IVP STAT STA Stop: 03/27/18 08:36 Last Admin: 03/27/18 09:01 Dose: 20 mg MAR Blood Pressure Document 03/27/18 09:01 [facility] (Rec: 03/27/18 09[facility]01 [id number] Blood Pressure Blood Pressure (100/60-150/90) 183/105 IVP Administration Document 03/27/18 09:01 [facility] (Rec: 03/27/18 09:01 [id number] Charges for Administration # of IVP Administrations 1 Morphine Sulfate (Morphine) 2 mg IVP STAT STA Stop: 03/27/18 09:25 Last Admin: 03/27/18 09:39 Dose: Not Given Non-Admin Reason: doubl entry <Rafy Patel - Last Filed: 03/31/18 07:15> - PA / STRIP WINDER / Resident Statement / has reviewed & agrees with the documentation as recorded. KEV has examined the patient and agrees with the treatment plan. <Rafy Patel - Last Filed: 03/31/18 07:15> Disposition/Present on Arrival - Present on Arrival Any Indicators Present on Arrival: Yes History of DVT/PE: No History of Uncontrolled Diabetes: Yes Urinary Catheter: No History Surgical Site Infection Following: None - Disposition Have Diagnosis and Disposition been Completed?: Yes Disposition Time: 15:58 Patient Plan: Telemetry <Donavon Mcdonald - Last Filed: 03/27/18 15:54> <Rafy Patel - Last Filed: 03/31/18 07:15> - Disposition Diagnosis: Respiratory distress, PNA (pneumonia), CHF exacerbation Disposition: HOSPITALIZED Condition: STABLE
[2018-03-27 08:50] LABS: VENOUS BLOOD GAS BASE EXCESS -4.8 mmol/L (0.0-2.0); VENOUS BLOOD GAS PO2 92 mm/Hg (30-55); VENOUS BLOOD PH 7.34 (7.32-7.43)
[2018-03-27 09:00] LABS: BASO # 0.05 K/mm3 (0.0-2.0); BASO % 0.4 % (0.0-3.0); EOS % 8.5 % (1.5-5.0); GRAN # 4.99 (1.4-6.5); HEMOGLOBIN 10.1 g/dL (12.0-16.0); LYMPH # 4.7 (1.2-3.4); LYMPH % 40.8 % (22.0-35.0); MEAN CELL VOLUME 87.9 fl (80.0-105.0); MEAN CORPUSCULAR HEMOGLOBIN 27.7 pg (25.0-35.0); MEAN CORPUSCULAR HGB CONC 31.5 g/dl (31.0-37.0); MONO # 0.7 (0.1-0.6); MONO % 6.5 % (1.0-6.0); RBC 3.65 10^6/uL (3.5-6.1); RED CELL DISTRIBUTION WIDTH 14.8 % (11.5-14.5); WHITE BLOOD COUNT 11.4 10^3/ul (4.5-11.0)
[2018-03-27] MEDS ORDERED: Nitroglycerin 2% Ointment Foilpak UD TOP STA (09:08)
[2018-03-27] MEDS ORDERED: Nitroglycerin 2% Ointment Foilpak UD TOP ONE (09:09)
[2018-03-27] MEDS ORDERED: Morphine 4 mg/ml ISec IVP STA (09:16)
[2018-03-27] MEDS ORDERED: Morphine 2 mg/ml ISec ONE (09:18)
[2018-03-27] MEDS ORDERED: Morphine 2 mg/ml ISec IVP STA (09:24)
--- NOTE | 2018-03-27 10:31 | RAD ---
Date of service: 03/27/2018 HISTORY: sob w/ h/o UT COMPARISON: 11/15/2017 FINDINGS: LUNGS: Patchy opacity at right base. PLEURA: Small right pleural effusion. Left costophrenic angle not included on film. No large left pleural effusion noted. No pneumothorax. CARDIOVASCULAR: Normal heart size. Mild congestive change. OSSEOUS STRUCTURES: No significant abnormalities. VISUALIZED UPPER ABDOMEN: Normal. OTHER FINDINGS: None. IMPRESSION: Patchy right basilar opacity and small right pleural effusion. Mild congestive change. Limited examination.
[2018-03-27] MEDS ORDERED: cefTRIAXone 1 gm 1 GM/100 ML BAG IVPB STA (10:33)
[2018-03-27] MEDS ORDERED: Azithromycin 500MG/NS 250ml 500 MG/250 ML BAG IVPB STA (10:33)
[2018-03-27 10:52] LABS: ALB/GLOB RATIO 1.1 (1.1-1.8); ALBUMIN 3.5 g/dL (3.0-4.8); ALT/SGPT 24 U/L (7-56); AST/SGOT 24 U/L (14-36); BLOOD UREA NITROGEN 14 mg/dL (7-21); CALCIUM 9.3 mg/dL (8.4-10.5); GFR NON-AFRICAN AMERICAN 60
[2018-03-27 10:58] LABS: GRAN % 43.8 % (50.0-68.0)
[2018-03-27] MEDS ORDERED: Iohexol 350 MG/100 ML VIAL ONE (11:45)
[2018-03-27 12:17] LABS: INR 1.09; PARTIAL THROMBOPLASTIN TIME 23.5 Seconds (25.1-36.5); PROTHROMBIN TIME 12.5 SECONDS (9.4-12.5)
[2018-03-27 12:27] LABS: VENOUS BLOOD GAS BASE EXCESS -3.1 mmol/L (0.0-2.0); VENOUS BLOOD GAS PO2 64 mm/Hg (30-55); VENOUS BLOOD PH 7.29 (7.32-7.43)
[2018-03-27 12:29] LABS: URINE BILIRUBIN NEGATIVE (NEGATIVE); URINE BLOOD NEGATIVE (NEGATIVE); URINE GLUCOSE (UA) NEGATIVE (NEGATIVE); URINE LEUKOCYTE ESTERASE NEGATIVE Leu/uL (NEGATIVE); URINE PROTEIN 30 mg/dL (<30 mg/dL); URINE UROBILINOGEN 0.2 E.U./dL (<1 E.U./dL)
[2018-03-27 12:30] LABS: URINE APPEARANCE CLEAR (CLEAR); URINE COLOR YELLOW (YELLOW)
[2018-03-27 12:41] LABS: URINE RBC 0 - 2 /hpf (0-2); URINE WBC 0 - 2 /hpf (0-6)
[2018-03-27 12:42] LABS: URINE BACTERIA NEG (NEG); URINE EPITHELIAL CELLS 0 - 2 /hpf (0-5)
--- NOTE | 2018-03-27 13:28 | CT ---
Date of service: 03/27/2018 PROCEDURE: CT Abdomen and Pelvis with contrast HISTORY: persistent emesis COMPARISON: None. TECHNIQUE: Contrast dose: 100 mL Omnipaque 350 Radiation dose: Total exam DLP = 723.08 mGy-cm. This CT exam was performed using one or more of the following dose reduction techniques: Automated exposure control, adjustment of the mA and/or kV according to patient size, and/or use of iterative reconstruction technique. FINDINGS: LOWER THORAX: Bilateral small pleural effusion. Bilateral lower lobe subsegmental/compressive atelectasis. Linear scar/atelectasis in right middle lobe. Cannot rule out left lower lobe infiltrate. Mild cardiomegaly. LIVER: Unremarkable. No gross lesion or ductal dilatation. GALLBLADDER AND BILE DUCTS: Status post cholecystectomy PANCREAS: Unremarkable. No gross lesion or ductal dilatation. SPLEEN: Unremarkable. ADRENALS: Unremarkable. No mass. No other acute abnormality. KIDNEYS AND URETERS: Left upper pole 10 mm renal cortical cyst. Right lower pole 11 mm cortical cyst. No calculus. No hydronephrosis. VASCULATURE: Unremarkable. No aortic aneurysm. BOWEL: Unremarkable. No obstruction. No gross mural thickening. APPENDIX: Normal appendix. PERITONEUM: Unremarkable. No free fluid. No free air. LYMPH NODES: Unremarkable. No enlarged lymph nodes. BLADDER: Decompressed around Uriostegui catheter balloon. REPRODUCTIVE: Unremarkable uterus. Pessary noted in the superior vagina. BONES: No acute fracture. OTHER FINDINGS: None. IMPRESSION: Bilateral pleural effusion and lower lobe subsegmental atelectasis. Cannot rule out left lower lobe pneumonia. No other acute abnormality.
[2018-03-27] MEDS ORDERED: Enoxaparin 80 mg Syringe SC ONE (13:56)
[2018-03-27] MEDS ORDERED: Enoxaparin 80 mg Syringe SC SCH (14:00)
--- NOTE | 2018-03-27 15:16 | CARD ---
APPROVED REPORT Date of service: 03/27/2018 EKG Measurement Heart [id number] <Conclusion> Sinus tachycardia with frequent premature ventricular complexes Left anterior fascicular block Minimal voltage criteria for LVH, may be normal variant Septal infarct, age undetermined Abnormal ECG
--- NOTE | 2018-03-27 15:16 | CARD ---
APPROVED REPORT Date of service: 03/27/2018 EKG Measurement Heart [id number] <Conclusion> Sinus tachycardia with premature atrial complexes Left anterior fascicular block Anteroseptal infarct, age undetermined Abnormal ECG
[2018-03-27] MEDS: Metoprolol Succinate 25 mg XL Tab PO SCH (16:21)
--- NOTE | 2018-03-27 22:23 | CON ---
DATE: 03/27/2018 CARDIOLOGY CONSULTATION HISTORY OF PRESENT ILLNESS: The patient is an 83-year-old woman, who presented with recurrence of chest pain. Her symptoms are consistent with angina. Suffers from hypertension, hypercholesterolemia, and diabetes mellitus. The patient has a previous myocardial infarction in the past, treated with emergency PTCA and stent earlier this year. According to the patient and family, they seemed to have stopped the Plavix 3 months ago for questionable reasons. This is despite being told by the primary care doctors as well as by the staff and I that she needs to stay on Plavix for a year. SOCIAL HISTORY: She does not smoke. REVIEW OF SYSTEMS: No more than what was above. PHYSICAL EXAMINATION: Vital Signs: Stable. Neck: Negative JVD. Lungs: Without rales. Heart: Normal S1, S2. Extremities: Without edema. Laboratories include an EKG that shows poor R-wave progression. Laboratories also includes troponins that were elevated. IMPRESSION: 1. Non-ST elevation myocardial infarction. 2. Unstable angina. 3. Coronary artery disease. 4. History of anterior wall myocardial infarction. 5. Noncompliance with Plavix. 6. Hypertension. 7. Hypercholesterolemia. 8. Diabetes mellitus. Given these findings, we will give the patient a dose of subcu Lovenox today; 300 of Plavix has been ordered. The patient is scheduled for cardiac catheterization. I have discussed this with the patient and family in detail. Gregory Arteaga MD cc: MD Quique
--- NOTE | 2018-03-28 01:47 | HP ---
DATE OF EXAM: 03/27/2018 HISTORY OF PRESENT ILLNESS: The patient is 83 years old, came to emergency room because of chest pain one hour prior to coming to the hospital. Denies any fever or chills. No cough, congestion. She did have nausea earlier. PAST MEDICAL HISTORY: Significant for, 1. Recent DC and had left anterior descending angioplasty. 2. Congestive heart failure. 3. Anterior wall DC. 4. Wls-gkmssmd-vrsdjldyk diabetes. 5. Hypertension. 6. Hyperlipidemia. ALLERGIES: SHE IS NOT ALLERGIC TO ANY MEDICATION. MEDICATION AT HOME: She is on Lipitor 20 mg daily, Plavix 75 mg daily, Lasix 40 mg daily, glimepiride 2 mg twice a day, metoprolol 25 mg daily, potassium 20 mEq daily. SOCIAL HISTORY: She lives by herself. Her son lives upstairs to her. Denies smoking, drinking, alcohol use. PHYSICAL EXAMINATION GENERAL: She is awake, alert, oriented, communicative. VITAL SIGNS: She is afebrile. Pulse 99, respirations 21, blood pressure 137/82. LUNGS: Bilateral fair airflow. No rhonchi or crackles. HEART: S1, S2 audible. ABDOMEN: Soft, nontender. No rebound, no guarding. NEUROLOGIC: The patient is awake, alert, oriented, communicative. LABORATORY DATA: WBC 11.4, hemoglobin 10, hematocrit 32, platelet of 434. D-dimer 554. PTT 23.5. Chemistries, sodium 139, potassium 3.8, chloride 109, CO2 19, BUN 14, creatinine 0.9, blood sugar of 260, troponin is 0.21, BNP 1510. CT scan of the abdomen and pelvis was done, showed bilateral pleural effusion and lower lobes subsegmental atelectasis. ASSESSMENT: 1. Zdx-QN-lvzzqkztk myocardiac infarction. 2. Congestive heart failure. 3. Lss-lcvtmmu-autoargtd diabetes. 4. Hypertension. 5. Hyperlipidemia. PLAN: We will resume the patient's usual medication. Dr. Arteaga has been consulted for possible catheterization in a.. Jennie Gibbs MD
[2018-03-28] MEDS: Metoprolol Succinate 25 mg XL Tab PO SCH (09:56)
[2018-03-28] MEDS: Potassium Chloride 20 mEq ER Tab PO SCH (09:56)
[2018-03-28] MEDS ORDERED: Lidocaine 2% PF (10 ml) Amp ONE (11:34)
[2018-03-28] MEDS ORDERED: Iodixanol 320 MG/ML 200 ML BOTTLE IV ONE (11:34)
[2018-03-28] MEDS ORDERED: Midazolam 2 MG/2 ML VIAL ONE (12:17)
[2018-03-28] MEDS ORDERED: Sodium Chloride 0.9% 1,000 ML IV SCH (13:00)
--- NOTE | 2018-03-28 13:30 | CARDCATH ---
PROCEDURE DATE: 03/28/2018 HISTORY: The patient is an 83-year-old woman who presents with shortness of breath and chest pain. The patient's past medical history includes an anterior wall myocardial infarction that was treated with angioplasty in 10/2017. She presents with angina. Her troponin was found to be 0.21. She suffers from diabetes mellitus, hypertension and hypercholesterolemia. Because of this, cardiac catheterization was recommended. PROCEDURE: Left heart catheterization with coronary arteriography and left ventriculogram. The left femoral artery was cannulated with 6-Urdu sheath. There were no complications. I performed moderate sedation which included the presence of an independent trained observer that assisted in monitoring the patient's consciousness as well as physiologic status. After administration of fentanyl and Versed, my intra service time was 15 minutes. The findings on catheterization revealed left ventricle that revealed segmental wall motion abnormality with an akinetic apex and a dilated LV. Overall ejection fraction was approximately 20%. Her coronary anatomy revealed a right dominant circulation. The RCA revealed diffuse atherosclerosis throughout its tree. There is 50% stenoses in the midportion. The left main artery was unremarkable. The LAD revealed the patent stent in its proximal/midportion. The rest of the LAD and diagonal vessels revealed diffuse atherosclerosis with borderline critical lesions in the diagonal vessel. The circumflex artery revealed diffuse atherosclerosis with 50% stenosis in the midportion. Angio-Seal was used to close the femoral artery site. The patient tolerated the procedure well. In summary, the procedure revealed an ischemic dilated cardiomyopathy with an EF of 20%. The stent in the LAD is patent. There is diffuse atherosclerosis in the coronary tree with disease in the mid RCA and circumflex artery of approximately 50%. Given these findings, the patient's treatment is continue medical therapy. We will continue her on her Lasix, aspirin, Plavix and statin therapy. We will add afterload reducers to help with LV function. The patient will need an ICD. I have contacted an EP doctor. We will arrange for an outpatient ICD and possible biventricular pacer as an outpatient. Gregory Arteaga MD
--- NOTE | 2018-03-28 14:23 | PN ---
DATE: 03/28/2018 SUBJECTIVE: The patient is 83 years old, came in with chest pain yesterday, has positive troponin, started on nitro paste, beta jairo and she was given IV diuretics. She was given Lovenox and plan is to [facility]. PHYSICAL EXAMINATION: GENERAL: She is awake, alert, oriented, communicative, chest pain free. VITAL SIGNS: She is afebrile, pulse 90, respirations 20, blood pressure 135/82. LUNGS: Bilateral fair airflow. No rhonchi or crackle. HEART: S1 and S2 audible. ABDOMEN: Soft. Nontender. No rebound. No guarding. NEUROLOGICAL: The patient is awake, alert, oriented, communicative. Moves all extremities. EXTREMITIES: Bilateral legs, no edema. LABORATORY DATA: Blood sugar is 159. ASSESSMENT: 1. Non-ST elevation myocardial infarction. 2. Congestive heart failure. 3. Hypertension. 4. Hyperlipidemia. 5. Zqu-tkvhzkn-zhmbozhvl diabetes. PLAN: The patient is going for cath. We will continue to monitor her vital signs, continue to monitor her blood sugar and we will follow up with the patient in a.m. Jennie Gibbs MD
[2018-03-28] MEDS: SACUBITRIL 24mg/VALSARTAN 26mg tab PO SCH (17:52)
[2018-03-29] MEDS: Metoprolol Succinate 25 mg XL Tab PO SCH (10:05)
[2018-03-29] MEDS: SACUBITRIL 24mg/VALSARTAN 26mg tab PO SCH ×2 (10:06→17:21)
[2018-03-29] MEDS: Potassium Chloride 20 mEq ER Tab PO SCH (10:06)
--- NOTE | 2018-03-29 16:24 | PN ---
DATE: 03/29/2018 CARDIOLOGY FOLLOWUP SUBJECTIVE: The patient is without shortness of breath. PHYSICAL EXAMINATION: VITAL SIGNS: Blood pressure is 136/80, heart rate is in the 70s. NECK: Negative JVD. LUNGS: Without rales. HEART: Reveals S1, S2. EXTREMITIES: Without edema. LABORATORY DATA: Hemoglobin was not done today. Chemistries: Glucose 161. IMPRESSION 1. Dilated cardiomyopathy. 2. Coronary artery disease. 3. History of anterior wall myocardial infarction. 4. History of percutaneous transluminal coronary angioplasty. 5. Weakness. PLAN: Given these findings, I have discussed with the patient about possible defibrillator placement. The patient is thinking about it. From a cardiac perspective, the patient can be discharged. We will arrange for an ICD as an outpatient if the patient is agreeable. Gregory Arteaga MD
--- NOTE | 2018-03-29 20:57 | PN ---
DATE: 03/29/2018 SUBJECTIVE: The patient is [id number], seen and examined, sitting in chair, seems to be comfortable with no complaint of shortness of breath. No nausea or vomiting. No diarrhea. Not in pain. PHYSICAL EXAMINATION: VITAL SIGNS: She is afebrile, pulse 70, respirations 19, blood pressure 136/80. LUNGS: Bilateral good airflow. No rhonchi or crackle. HEART: S1 and S2 audible. ABDOMEN: Soft, obese, nontender. No rebound. No guarding. NEUROLOGIC: The patient is awake, alert, oriented, able to communicate. Moves all extremities. LABORATORY DATA: WBC is 11.4, hemoglobin 10, hematocrit 32. Chemistry: Blood sugar is 160. Blood culture and urine cultures are negative. ASSESSMENT: 1. Non-ST elevation myocardial infarction, status post cardiac cath, seems to have all patent stent. 2. Congestive heart failure. 3. Hyperlipidemia. 4. Xmz-mvhdtqa-fverackrn diabetes. PLAN: Currently, the patient is on glimepiride 2 mg twice a day. She has been started on Entresto. She is on potassium supplementation. We will continue her on Lasix, atorvastatin, Plavix, and metoprolol. We will encourage physical therapy. TCU evaluation has been requested, but because of insurance reasons, she is not going to be excepted. We will request for home PT and if she remains stable, will be discharged in a.m. Discussed with Dr. Arteaga. The patient has been evaluated by heading and priming operator to do EP study for possible defibrillator placement because of her cardiomyopathy. Jennie Gibbs MD
[2018-03-30 05:54] VITALS: O2SAT 100
[2018-03-30 07:12] LABS: BASO # 0.03 K/mm3 (0.0-2.0); BASO % 0.3 % (0.0-3.0); EOS # 0.7 (0.0-0.7); EOS % 7.1 % (1.5-5.0); GRAN # 7.21 (1.4-6.5); GRAN % 69.7 % (50.0-68.0); LYMPH # 1.4 (1.2-3.4); LYMPH % 13.7 % (22.0-35.0); MEAN CORPUSCULAR HEMOGLOBIN 27.5 pg (25.0-35.0); MEAN CORPUSCULAR HGB CONC 30.9 g/dl (31.0-37.0); MEAN PLATELET VOLUME 9.9 fl (7.0-11.0); MONO % 9.2 % (1.0-6.0); RED CELL DISTRIBUTION WIDTH 14.7 % (11.5-14.5); WHITE BLOOD COUNT 10.3 10^3/ul (4.5-11.0)
[2018-03-30 07:43] LABS: ALBUMIN 3.2 g/dL (3.0-4.8); ALT/SGPT 25 U/L (7-56); AST/SGOT 35 U/L (14-36); BLOOD UREA NITROGEN 18 mg/dL (7-21); CALCIUM 8.8 mg/dL (8.4-10.5); GFR NON-AFRICAN AMERICAN 53
[2018-03-30] MEDS: Potassium Chloride 20 mEq ER Tab PO SCH (09:39)
[2018-03-30] MEDS: Metoprolol Succinate 25 mg XL Tab PO SCH (09:40)
[2018-03-30] MEDS: SACUBITRIL 24mg/VALSARTAN 26mg tab PO SCH ×2 (09:41→17:20)
[2018-03-30] MEDS: Insulin Reg-HIGH-Coverage SC SCH ×3 (11:36→21:43)
--- NOTE | 2018-03-30 11:39 | PN ---
DATE: 03/30/2018 SUBJECTIVE: The patient is without shortness of breath. PHYSICAL EXAMINATION: VITAL SIGNS: On physical exam, blood pressure 136/76, heart rate is in the 80s. NECK: Negative JVD. LUNGS: Without rales. HEART: S1, S2. EXTREMITIES: Without edema. LABORATORY DATA: Hemoglobin is 11. Chemistries, BUN and creatinine are unremarkable. Glucose is 180. IMPRESSION: 1. Ischemic dilated cardiomyopathy. 2. Coronary artery disease. 3. History of anterior wall myocardial infarction. 4. History of percutaneous transluminal coronary angioplasty and stent. 5. Weakness. Given these findings, an extensive discussion with the patient. the patient's daughter, the patient is agreeable for an implantable cardioverter-defibrillator. We will transfer the patient to [facility] for an implantable cardioverter-defibrillator. The shrimper contacted is Dr. Dale. Gregory Arteaga MD
--- NOTE | 2018-03-30 17:48 | PN ---
DATE: 03/30/2018 SUBJECTIVE: The patient is 83 years old, seen and examined, sitting in chair, doing puzzles. No chest pain. No shortness of breath. Was evaluated for EPS study and is candidate for defibrillator placement. I spoke to the patient's daughter, Sadia. Spoke to Dr. Arteaga. Being arranged to be transferred to [facility] for pacemaker placement. PHYSICAL EXAMINATION: GENERAL: On examination today, she is awake, alert, oriented, communicative. VITAL SIGNS: She is afebrile, pulse 96, respirations 18, blood pressure 136/76. LUNGS: Bilateral fair airflow. No rhonchi or crackle. HEART: S1 and S2 audible. ABDOMEN: Soft. Nontender. No rebound. No guarding. NEUROLOGICAL: The patient is awake, alert, oriented, communicative. EXTREMITIES: Bilateral leg, no edema. LABORATORY EXAM: WBC is 7.3, hemoglobin 11, hematocrit 35.6, platelet Of 363. Chemistry: Sodium 139, potassium 3.7, chloride 106, CO2 of 25, BUN 18, creatinine 1, blood sugar of 53. Blood culture, urine cultures are negative. ASSESSMENT: 1. Jqv-ZG-nvmqeglpk myocardial infarction. 2. Status post cardiac catheterization, was found to have patent stent that was placed previously. 3. Hypertension. 4. Cardiomyopathy with ejection fraction of 20%. 5. Noninsulin-dependent diabetes. PLAN: Currently, the patient is on glimepiride. She is on Entresto. We will monitor her blood sugar. She is on Lasix. She is on statins. Continue her on Plavix and metoprolol. The patient will be transferred to [facility] as soon as bed is available for possible defibrillator placement. Jennie Gibbs MD
[2018-03-31 00:11] VITALS: RESP 18
[2018-03-31 05:57] VITALS: BP 104/58; PULSE 80; TEMP 98.1
== END 2018-03-31 06:30 | disposition short-term general hospital (02) | DRG 281 ==
LOC: ED 07:57 → ERH 11:28 → 2RNO 15:06 → 2RSO 03-28 13:08
PROVIDERS: ADMIT Internal Medicine; ATTEND Internal Medicine
PROC: 4A023N7 Measurement of Cardiac Sampling and Pressure, Left Heart, Percutaneous Approach (ICD-10-PCS; principal; 2018-03-28)
PROC: B2151ZZ Fluoroscopy of Left Heart using Low Osmolar Contrast (ICD-10-PCS; 2018-03-28)
PROC: B2111ZZ Fluoroscopy of Multiple Coronary Arteries using Low Osmolar Contrast (ICD-10-PCS; 2018-03-28)
DX: I21.4 Non-ST elevation (NSTEMI) myocardial infarction (principal); I42.0 Dilated cardiomyopathy; I25.110 Atherosclerotic heart disease of native coronary artery with unstable angina pectoris; I25.5 Ischemic cardiomyopathy; I11.0 Hypertensive heart disease with heart failure; I50.9 Heart failure, unspecified; E11.9 Type 2 diabetes mellitus without complications; E78.00 Pure hypercholesterolemia, unspecified; F03.90 Unspecified dementia, unspecified severity, without behavioral disturbance, psychotic disturbance, mood disturbance, and anxiety; E78.5 Hyperlipidemia, unspecified; I25.2 Old myocardial infarction; Z95.5 Presence of coronary angioplasty implant and graft; Z91.19 Patient's noncompliance with other medical treatment and regimen; Z79.84 Long term (current) use of oral hypoglycemic drugs